=== PATIENT | female | born 1975 | race Caucasian/White ===

== ENCOUNTER 2016-08-01 06:54 | Emergency (ER) | payer OTHER ==
[2016-08-01] MEDS ORDERED: MAG HYDROX/AL HYDROX/SIMETH 30 ML UDC PO STA ×2 (07:32→12:27)
[2016-08-01] MEDS ORDERED: MAG HYDROX/AL HYDROX/SIMETH 30 ML UDC ONE ×2 (07:35→12:28)
[2016-08-01] MEDS ORDERED: KETOROLAC 60 MG/2 ML VIAL IVP STA (07:45)
[2016-08-01] MEDS ORDERED: KETOROLAC 30 MG/ML VIAL ONE (07:55)
[2016-08-01] MEDS ORDERED: HYDROmorphone 1 MG/ML SYRINGE ONE ×3 (08:43→13:58)
[2016-08-01] MEDS ORDERED: HYDROmorphone 1 MG/ML SYRINGE IVP STA ×3 (08:49→13:58)
[2016-08-01] MEDS ORDERED: ONDANSETRON 4 MG/2 ML VIAL IVP STA (08:49)
[2016-08-01] MEDS ORDERED: ONDANSETRON 4 MG/2 ML VIAL ONE (09:01)
[2016-08-01] MEDS ORDERED: IOPAMIDOL-300 100 ML VIAL IVP ONE (11:19)
[2016-08-01] MEDS ORDERED: LIDOCAINE VISCOUS 2% 15 ML UDC MM STA (12:27)
[2016-08-01] MEDS ORDERED: LIDOCAINE VISCOUS 2% 15 ML UDC MM ONE (12:28)
[2016-08-01] MEDS ORDERED: PANTOPRAZOLE 40 MG VIAL IVP STA (13:19)
[2016-08-01] MEDS ORDERED: PANTOPRAZOLE 40 MG VIAL ONE (13:45)
== END 2016-08-01 14:54 | disposition home or self-care (01) ==
DX: R10.13 Epigastric pain (principal); K31.89 Other diseases of stomach and duodenum; R10.11 Right upper quadrant pain; N20.0 Calculus of kidney
CPT/HCPCS: 36415; 71020; 74177; 76705; 80053; 83690; 84484; 85025; 87339; 93005; 93010; 96374; 96375; 96376; 99284; 99285; A9270; J1170; Q9967

== ENCOUNTER 2017-02-06 17:35 | Emergency (ER) | payer OTHER ==
[2017-02-06] MEDS ORDERED: HYDROmorphone 1 MG/ML SYRINGE IVP STA ×3 (17:39→20:13)
[2017-02-06] MEDS ORDERED: SODIUM CHLORIDE 0.9% 1,000 ML IV ONE (17:39)
[2017-02-06] MEDS ORDERED: ONDANSETRON 4 MG/2 ML VIAL IVP STA (17:39)
--- NOTE | 2017-02-06 17:52 | ED Physician Documentation ---
PD HPI ABD PAIN - Stated complaint Stated Complaint: ABD PAIN/VOMITING/FEVER - Chief complaint Chief Complaint: Abd Pain - History obtained from History obtained from: Patient - History of Present Illness Timing - onset: Last night Timing - duration: Days (1) Timing - details: Gradual onset Pain level max: 8 Pain level now: 8 Quality: Aching, Pain Location: RUQ Radiation: Other (non-radiating) Improved by: Other (nothing) Worsened by: Eating, Moving Associated symptoms: Fever (101), Nausea, Vomiting. No: Hematemesis, Diarrhea, Constipation, Melena, Hematochezia, Dysuria, Chest pain Recently seen: Not recently seen - Additional information Additional information: Patient is a 41-year-old female who presents to the emergency department with epigastric/right upper quadrant abdominal pain worsening throughout the day. Temperature of 101.5 at home. Vomiting. History of gallbladder issues in the past. Review of Systems Ten Systems: 10 systems reviewed and negative Constitutional: denies: Chills Nose: denies: Rhinorrhea / runny nose, Congestion Throat: denies: Sore throat Cardiac: denies: Chest pain / pressure Respiratory: denies: Cough GI: denies: Diarrhea, Hematemesis, Bloody / black stool : denies: Dysuria, Frequency, Hesitancy, Now EGA Skin: denies: Rash Musculoskeletal: denies: Neck pain, Back pain Neurologic: denies: Headache PD PAST MEDICAL HISTORY - Past Medical History Cardiovascular: None Respiratory: None Endocrine/Autoimmune: None GI: Cholelithiasis : None HEENT: None Psych: Anxiety Musculoskeletal: None Derm: None - Past Surgical History Past Surgical History: Yes 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, Other - Present Medications Home Medications: Ambulatory Orders Medication Instructions Recorded Confirmed Naproxen Sodium [Aleve] 220 mg PO Q12H PRN 03/16/15 04/02/16 Hydrocodone/Acetaminophen [Vicodin 1 tab ORAL Q4H PRN 04/02/16 04/02/16 5-300 mg Tablet] HYDROcod/ACETAM 5/325 [[place] 5/325] 1 - 2 ea PO Q6H PRN #15 tablet 08/01/16 Sucralfate 1 gm PO ACHS #30 tablet 08/01/16 Diclofenac Epolamine [Flector] 1 each TD Q12H PRN #30 adh..patch 02/06/17 Famotidine [Pepcid] 20 mg PO BID #60 tablet 02/06/17 Hydrocodone/Acetaminophen 1 - 2 each PO Q6H PRN #20 tablet 02/06/17 [Hydrocodon-Acetaminophen 5-325] Ondansetron Odt [Zofran] 4 mg TL Q6H PRN #10 tablet 02/06/17 Sucralfate [Carafate] 1 gm PO ACHS #60 tablet 02/06/17 - Allergies Allergies/Adverse Reactions: Allergies Allergy/AdvReac Type Severity Reaction Status Date / Time coconut oil Allergy Severe Anaphylaxis Verified 02/06/17 17:46 Penicillins Allergy Severe ANAPHYLAXIS Verified 02/06/17 17:46 tramadol Allergy DIARRHEA Verified 02/06/17 17:46 - Social History Does the pt smoke?: No Smoking Status: Never smoker Does the pt drink ETOH?: Yes Does the pt have substance abuse?: No - Immunizations Immunizations are current?: Yes - POLST Patient has POLST: No PD ED PE NORMAL - Vitals Vital signs reviewed: Yes - General General: Alert and oriented X 3, Other (Appears very uncomfortable. Patient is in a dark room) - HEENT HEENT: PERRL, Moist mucous membranes, Pharynx benign - Neck Neck: Supple, no meningeal sign - Cardiac Cardiac: RRR, Strong equal pulses - Respiratory Respiratory: No respiratory distress, Clear bilaterally - Abdomen Abdomen: Normal bowel sounds, Soft, Non distended, Other (Tender palpation epigastric and right upper quadrant. Positive Rene's.) - Back Back: No CVA TTP, No spinal TTP - Derm Derm: Warm and dry, No rash - Neuro Neuro: Alert and oriented X 3 - Psych Psych: Normal mood, Normal affect Results - Vitals Vitals: Vital Signs - 24 hr 02/06/17 02/06/17 02/06/17 17:42 19:35 23:27 Temperature 37.1 C 36.9 C Heart Rate 84 74 67 Respiratory 16 20 18 Rate Blood Pressure 141/104 H 129/71 129/80 O2 Saturation 98 95 97 Oxygen O2 Source Room air - Labs Labs: Laboratory Tests 02/06/17 02/06/17 02/06/17 18:06 18:06 19:06 WBC 6.3 RBC 4.85 Hgb 14.8 Hct 43.0 MCV 88.6 MCH 30.5 MCHC 34.4 RDW 13.0 Plt Count 218 MPV 8.1 Neut # 3.7 Lymph # 1.9 [place] # 0.5 Eos # 0.2 Baso # 0.0 Absolute Nucleated RBC 0.00 Nucleated RBCs 0.0 Sodium 134 L Potassium 3.9 Chloride 106 Carbon Dioxide 21 Anion Gap 7.0 BUN 12 Creatinine 0.5 Estimated GFR (MDRD) 135 Glucose 101 H Calcium 9.2 Total Bilirubin 0.5 AST 19 ALT 15 Alkaline Phosphatase 60 Total Protein 7.5 Albumin 4.3 Globulin 3.2 Albumin/Globulin Ratio 1.3 Lipase 18 L Urine Color YELLOW Urine Clarity CLEAR Urine pH 6.0 Ur Specific [place] 1.020 Urine Protein NEGATIVE Urine Glucose (UA) NEGATIVE Urine Ketones NEGATIVE Urine Occult Blood SMALL H Urine Nitrite NEGATIVE Urine Bilirubin NEGATIVE Urine Urobilinogen 0.2 (NORMAL) Ur Leukocyte Esterase NEGATIVE Urine RBC 0-5 Urine WBC 0-3 Ur Squamous Epith Cells FEW Squamous Urine Bacteria None Seen Ur Microscopic Review INDICATED Urine Culture Comments NOT INDICATED Urine HCG, Qual NEGATIVE - Rads (name of study) Right upper quadrant ultrasound Radiology: Prelim report reviewed, EMP read contemporaneously, See rad report ( Small amount of questionable pericholecystic fluid. No gallstones or gallbladder wall thickening. Patient did experience right upper quadrant pain with imaging. Without gallbladder wall thickening and gallstones, these imaging findings are nonspecific. 2. Probable fatty liver. 1.3 x 0.9 x 0.6 cm echogenic region in the right liver probably represents a focal area of fat or hemangioma. This could be confirmed with multiphase CT or MRI on a nonemergent basis. 3. No hydronephrosis. 4 mm nonobstructing inferior right renal stone. 4. Normal common bile duct. No acute pancreatic abnormality. ) CT abdomen and pelvis Radiology: Prelim report reviewed, EMP read contemporaneously, See rad report ( No acute solid or hollow viscus organ abnormalities account for the patient's presentation. No evidence of bowel obstruction or appendicitis. 2. There is right nephrolithiasis. No evidence of distal obstructing stone or hydronephrosis. ) PD MEDICAL DECISION MAKING - ED course Complexity details: reviewed results, re-evaluated patient, considered differential, d/w patient, d/w sr solutions consultant ED course: Patient is a 41-year-old female who presents to the emergency department with epigastric/right upper quadrant pain and vomiting today. Pain and nausea controlled in the emergency department. Pain did improve with a GI cocktail as well. She has been on Naprosyn for ongoing orthopedic issues, most recently right shoulder pain. Possible this represents gastritis versus an ulcer. Does have trace pericholecystic fluid possibly on ultrasound, therefore surgery was consulted, Dr. Jung evaluated the patient and recommends outpatient HIDA scan and EGD. We will have her stop the oral NSAIDs, change her to a diclofenac patch. We will also prescribe Carafate and Pepcid in addition to her typical Prilosec. Will prescribe pain and nausea medications for home as well. She will return if she worsens or fails to improve as expected. We will have her follow-up with her PCP for further care. Patient counseled regarding signs and symptoms for which I believe and urgent re-evaluation would be necessary. Patient with good understanding of and agreement to plan and is comfortable going home at this time This document was made in part using voice recognition software. While efforts are made to proofread this document, sound alike and grammatical errors may occur. Pain well controlled and tolerating p.o. well in the emergency department Departure - Departure Disposition: 01 Home, Self Care Clinical Impression: Abdominal pain Qualifiers: Abdominal location: epigastric Qualified Code(s): R10.13 - Epigastric pain Condition: Good Instructions: ED Abdominal Pain Unkn Cause, ED PUD Vs Gastritis Follow-Up: Elana Cazares DO [Primary Care Provider] - Within 1 week Prescriptions: Sucralfate [Carafate] 1 gm PO ACHS #60 tablet Diclofenac Epolamine [Flector] 1 each TD Q12H PRN #30 adh..patch PRN Reason: shoulder pain Hydrocodone/Acetaminophen [Hydrocodon-Acetaminophen 5-325] 1 - 2 each PO Q6H PRN #20 tablet PRN Reason: pain Famotidine [Pepcid] 20 mg PO BID #60 tablet Ondansetron Odt [Zofran] 4 mg TL Q6H PRN #10 tablet PRN Reason: Nausea / Vomiting Comments: Stop the Aleve at home. Return if you worsen. Apply the Flector patch to the most painful area of your shoulder. You need to have a HIDA scan and endoscopy scheduled. Dr. Cazares can refer you for these. Do not drink alcohol or drive while on narcotic pain medicine. Note that many narcotic pain relievers also contain tylenol/acetaminophen. Please ensure that your total dose of acetaminophen from all sources does not exceed 3 grams (3000mg) per day. You may constipated on this medication, take a stool softener such as "Colace" twice a day while you are on it. Also recommend a hani-qwi-yaqrvrz laxative such as senna or MiraLAX any day that you do not have a bowel movement. If you received narcotic pain medication in the emergency department, do not drive or operate machinery for the next 24 hours. Discharge Date/Time: 02/06/17 23:50
[2017-02-06] MEDS ORDERED: HYDROmorphone 1 MG/ML SYRINGE ONE ×3 (17:53→20:28)
[2017-02-06] MEDS ORDERED: ONDANSETRON 4 MG/2 ML VIAL ONE (17:53)
[2017-02-06] MEDS ORDERED: PROMETHAZINE INJ 25 MG in SODIUM CHLORIDE 0.9% 50 ML IV STA (18:14)
[2017-02-06 18:16] LABS: BASOPHILS % (AUTO) 0.6 %; EOSINOPHILS # (AUTO) 0.2 10^3/uL (0.0-0.7); EOSINOPHILS % (AUTO) 2.6 %; HGB - HEMOGLOBIN 14.8 g/dL (12.0-16.0); LYMPHOCYTES # (AUTO) 1.9 10^3/uL (1.5-3.5); LYMPHOCYTES % (AUTO) 30.7 %; MEAN CORPUSCULAR HEMOGLOBIN 30.5 pg (27.0-31.0); MEAN CORPUSCULAR HGB CONC 34.4 g/dL (32.0-36.0); MEAN CORPUSCULAR VOLUME 88.6 fL (81.0-99.0); MEAN PLATELET VOLUME 8.1 fL (7.9-10.8); MONOCYTES # (AUTO) 0.5 10^3/uL (0.0-1.0); MONOCYTES % (AUTO) 7.7 %; NEUTROPHILS # (AUTO) 3.7 10^3/uL (1.5-6.6); NEUTROPHILS % (AUTO) 58.4 %; RED BLOOD COUNT 4.85 10^6/uL (4.20-5.40); UNCORRECTED WHITE BLOOD COUNT 6.3 x10^3/uL; WHITE BLOOD COUNT 6.3 x10^3/uL (4.8-10.8)
[2017-02-06] MEDS ORDERED: PROMETHAZINE 25 MG/1 ML VIAL ONE (18:19)
[2017-02-06 18:27] LABS: ALBUMIN/GLOBULIN RATIO 1.3 (1.0-2.2); BILIRUBIN,TOTAL 0.5 mg/dL (0.2-1.0); CALCIUM 9.2 mg/dL (8.5-10.3); CREATININE 0.5 mg/dL (0.4-1.0); POTASSIUM 3.9 mmol/L (3.5-5.0); TOTAL PROTEIN 7.5 g/dL (6.7-8.2)
[2017-02-06 19:13] LABS: BILIRUBIN,URINE NEGATIVE (NEGATIVE)
[2017-02-06 19:17] LABS: UA w/ MICROSCOPIC CHARGE YES
[2017-02-06 19:23] LABS: UR CULTURE IF IND NOT INDICATED; WBC,URINE 0-3 /HPF (0-5)
[2017-02-06 19:24] LABS: HCG UR QUAL NEGATIVE
--- NOTE | 2017-02-06 19:51 | Ultrasound Preliminary Report ---
Exam: US Abdomen Limited IMPRESSION: 1. Small amount to questionable pericholecystic fluid. No gallstones or gallbladder wall thickening. Patient did experience right upper quadrant pain with imaging. Without gallbladder wall thickening an d gallstones, these imaging findings are nonspecific. 2. Probable fatty liver. 1.3 x 0.9 x 0.6 cm echogenic region in the right liver probably represents a focal area of fat or hemangioma. This could be confirmed with multiphase CT or MRI on a nonemergent basis to 3. Nodular nephrosis. 4 mm nonobstructing right renal stone. 4. Normal common bile duct. No acute pancreatic abnormality. [facility] SITE ID: [id number]
[2017-02-06] MEDS ORDERED: SUCRALFATE 1 GM/10 ML UDC PO STA (20:51)
[2017-02-06] MEDS ORDERED: PHENobarb/HYOSCY/ATROPINE/SCOP 5 ML SYRINGE PO STA (20:51)
[2017-02-06] MEDS ORDERED: MAG HYDROX/AL HYDROX/SIMETH 30 ML UDC PO STA (20:51)
[2017-02-06] MEDS ORDERED: IOPAMIDOL-300 100 ML VIAL IVP ONE (20:55)
[2017-02-06] MEDS ORDERED: PHENobarb/HYOSCY/ATROPINE/SCOP 5 ML SYRINGE PO ONE (21:01)
[2017-02-06] MEDS ORDERED: MAG HYDROX/AL HYDROX/SIMETH 30 ML UDC ONE (21:02)
[2017-02-06] MEDS ORDERED: SUCRALFATE 1 GM/10 ML UDC ONE (21:02)
--- NOTE | 2017-02-06 21:05 | Ultrasound Report ---
EXAM: ABDOMEN ULTRASOUND LIMITED, RUQ EXAM DATE: 02/06/2017 06:54 PM. CLINICAL HISTORY: Right upper quadrant abdominal pain. COMPARISON: None. TECHNIQUE: Real-time scanning was performed with static images obtained. FINDINGS: Liver: Mildly echogenic liver parenchyma. In the right liver, there is an oblong echogenic focus kirsten uring 1.3 x 0.9 x 0.6 cm. No vascular component is noted. No intrahepatic bile duct dilation. 16.9 cm . Main portal vein flow: Hepatopetal. Gallbladder: Small amounts of pericholecystic fluid. No definite gallbladder wall thickening. Per rep ort, the patient had a positive sonographic Rene sign. Biliary System: CBD measures 4 mm. No intrahepatic or extrahepatic ductal dilatation. Other: Pancreas: Echogenic parenchyma. No mass, atrophy or calcifications. Right kidney measures 12.1 cm. No hydronephrosis. 4 mm shadowing echogenic focus in the inferior right kidney. IMPRESSION: 1. Small amount of questionable pericholecystic fluid. No gallstones or gallbladder wall thickening. Patient did experience right upper quadrant pain with imaging. Without gallbladder wall thickening an d gallstones, these imaging findings are nonspecific. 2. Probable fatty liver. 1.3 x 0.9 x 0.6 cm echogenic region in the right liver probably represents a focal area of fat or hemangioma. This could be confirmed with multiphase CT or MRI on a nonemergent basis. 3. No hydronephrosis. 4 mm nonobstructing inferior right renal stone. 4. Normal common bile duct. No acute pancreatic abnormality. [facility] Referring Provider Line: [phone] SITE ID: [id number]
--- NOTE | 2017-02-06 21:28 | CT Preliminary Report ---
Exam: CT Abdomen/Pelvis W/ IMPRESSION: 1. No acute solid or hollow viscus organ abnormalities account for the patient's presentation. No akshat dence of bowel obstruction or appendicitis. 2. There is right nephrolithiasis. No evidence of distal obstructing stone or hydronephrosis. [facility] SITE ID: [id number]
--- NOTE | 2017-02-06 21:30 | CT Report ---
EXAM: CT ABDOMEN AND PELVIS EXAM DATE: 02/06/2017 08:56 PM. CLINICAL HISTORY: Right sided abdominal pain COMPARISONS: 08/01/2016. TECHNIQUE: Routine helical CT imaging was performed through the abdomen and pelvis. IV contrast: 100 cc Isovue-300. Enteric contrast: No. Reconstructions: Coronal and sagittal. In accordance with CT protocol optimization, one or more of the following dose reduction techniques w ere utilized for this exam: automated exposure control, adjustment of mA and/or KV based on patient s ize, or use of iterative reconstructive technique. FINDINGS: Lung Bases: Unremarkable. Liver: Normal. No masses. Gallbladder/Bile Ducts: Unremarkable. Spleen: Normal. Pancreas: Normal. Adrenal Glands: Normal. Kidneys: There are small nonobstructing stones within the inferior right kidney. No evidence of dista l obstructing stone or hydronephrosis. Peritoneal Cavity/Bowel: No dilated or thick-walled bowel is seen. No intraperitoneal free air or karyn e fluid. No enlarged mesenteric or retroperitoneal lymph nodes. The appendix is well visualized and n ormal. Pelvic Organs: The uterus is surgically absent. There is a small functional cyst within the right adn exa. Urinary bladder is normal. Vasculature: No aneurysms or other significant abnormality. Bones: No significant abnormality. Other: None. IMPRESSION: 1. No acute solid or hollow viscus organ abnormalities account for the patient's presentation. No akshat dence of bowel obstruction or appendicitis. 2. There is right nephrolithiasis. No evidence of distal obstructing stone or hydronephrosis. [facility] Referring Provider Line: [phone] SITE ID: [id number]
[2017-02-06] MEDS ORDERED: FAMOTIDINE 20 MG/2 ML VIAL IVP STA (21:45)
[2017-02-06] MEDS ORDERED: PANTOPRAZOLE 40 MG VIAL IVP STA (21:45)
[2017-02-06] MEDS ORDERED: FAMOTIDINE 20 MG/2 ML VIAL ONE (21:54)
[2017-02-06] MEDS ORDERED: PANTOPRAZOLE 40 MG VIAL ONE (21:54)
[2017-02-06 23:27] VITALS: BP 129/80
--- NOTE | 2017-02-07 02:56 | CONSULTATION NOTE ---
DATE OF CONSULTATION: 02/06/2017 00:00:00 REQUESTING PROVIDER: Dr. Mahan. REASON FOR REFERRAL: Abdominal pain, nausea and vomiting. HISTORY OF PRESENT ILLNESS: The patient is a 41-year-old female who has been having at least A 3-year history of intermittent right upper quadrant abdominal pain, nausea and vomiting. Since it first occurred, she has been to the emergency room several times for this. She had recent abdominal ultrasound, which showed questionable fluid around the gallbladder. She had a CT scan of the abdomen and pelvis, which showed a small kidney stone on the right side. She had seen a logistics planning manager and a HIDA scan was ordered, but this has not been done. This was ordered a long time ago. She has been having now attacks of right upper quadrant abdominal pain weekly now. Today's episode lasted the longest and was the most intense. This occurred after eating rice. The pain can occur at any time of day, with eating or not. She denies any history of peptic ulcer disease. She has been on Prilosec because it was recommended for the last 3 months now with minimal improvement in her symptoms, as well as taking Mylanta. She does take Aleve 2 tablets almost daily for her shoulder pain. She denies any diarrhea or constipation. She denies any history of jaundice. PAST MEDICAL HISTORY: None. PAST SURGICAL HISTORY: 1. Hysterectomy. 2. Arthroscopic surgery. ALLERGIES TO MEDICATIONS: 1. PENICILLIN. 2. TRAMADOL. CURRENT MEDICATIONS: 1. Aleve. 2. Vicodin. 3. Carafate. 4. Prilosec, dosage unknown. FAMILY HISTORY: Noncontributory. HABITS: The patient socially uses alcohol. Denies any drug or alcohol use. SOCIAL HISTORY: The patient is . ROS: Gastrointestinal: Abdominal pain, nausea. 12 point review of systems obtain with pertinent positives discussed and all others being negative. PHYSICAL EXAMINATION: VITAL SIGNS: Temperature is 37, heart rate 84, blood pressure is 129/71. GENERAL: The patient is lying in bed. She does appear slightly ill. She is awake and able to answer questions. HEENT: Eyes nonicteric. NECK: No lymphadenopathy. HEART: Regular. LUNGS: Clear. BACK: Nontender. ABDOMEN: Soft. Mild right upper quadrant tenderness. No masses. No hernias. EXTREMITIES: No edema or cyanosis. NEUROLOGICAL: The patient appears to be neurologically intact without any deficits. PSYCHOLOGICAL: The patient is coherent, cooperative, and appears to answer questions fully. DIAGNOSTIC DATA: Liver function tests within normal limits. Lipase is 18. White blood count 6.3, hemoglobin 14.8. Ultrasound and CT scan of the abdomen and pelvis, see history of present illness. ASSESSMENT: Right upper quadrant abdominal pain that can be of possibly 2 different etiologies such as biliary tract disease versus peptic ulcer disease. She will need to have a hepatobiliary scan with CCK ejection fraction as well as most likely upper endoscopy throughout the different disease process. I recommended that she talk to her primary care and see about referral to Surgery so these tests may be obtained in a timely fashion in order to diagnose her abdominal pain. PLAN: 1. The patient may be discharged home from surgery standpoint. 2. Recommend the patient be referred to Surgical clinic for further evaluation of her abdominal pain with appropriate testing. 3. Low fat diet. 4. Would recommend sparingly using NSAIDs until further investigation of the stomach can be done. JOB #: [id number] [facility] JOB #:[id number] LEDA
== END 2017-02-06 23:50 | disposition home or self-care (01) ==
LOC: ED 17:35
DX: R10.13 Epigastric pain (principal); M25.511 Pain in right shoulder
CPT/HCPCS: 36415; 74177; 76705; 80053; 81001; 81025; 83690; 85025; 96365; 96375; 96376; 99283; 99285; A9270; J1170; J7040; Q9967; 81003; 87086

== ENCOUNTER 2017-02-10 16:16 | Emergency (ER) | payer OTHER ==
[2017-02-10] MEDS ORDERED: ONDANSETRON 4 MG/2 ML VIAL IVP STA ×2 (16:30→17:52)
[2017-02-10] MEDS ORDERED: HYDROmorphone 1 MG/ML SYRINGE IVP STA ×2 (16:30→17:52)
[2017-02-10] MEDS ORDERED: SODIUM CHLORIDE 0.9% 1,000 ML IV ONE (16:30)
[2017-02-10] MEDS ORDERED: HYDROmorphone 1 MG/ML SYRINGE ONE ×2 (16:38→18:07)
[2017-02-10] MEDS ORDERED: ONDANSETRON 4 MG/2 ML VIAL ONE ×2 (16:38→18:07)
[2017-02-10] MEDS ORDERED: SODIUM CHLORIDE FLUSH 0.9% 10 ML SYRINGE IVP ONE (16:38)
[2017-02-10 16:57] LABS: BASOPHILS # (AUTO) 0.1 10^3/uL (0.0-0.1); BASOPHILS % (AUTO) 0.8 %; EOSINOPHILS # (AUTO) 0.1 10^3/uL (0.0-0.7); EOSINOPHILS % (AUTO) 1.8 %; HCT - HEMATOCRIT 44.8 % (37.0-47.0); HGB - HEMOGLOBIN 15.2 g/dL (12.0-16.0); LYMPHOCYTES # (AUTO) 1.6 10^3/uL (1.5-3.5); LYMPHOCYTES % (AUTO) 23.2 %; MEAN CORPUSCULAR HEMOGLOBIN 30.2 pg (27.0-31.0); MEAN CORPUSCULAR HGB CONC 33.9 g/dL (32.0-36.0); MEAN CORPUSCULAR VOLUME 89.2 fL (81.0-99.0); MEAN PLATELET VOLUME 8.3 fL (7.9-10.8); MONOCYTES # (AUTO) 0.6 10^3/uL (0.0-1.0); MONOCYTES % (AUTO) 8.2 %; NEUTROPHILS # (AUTO) 4.6 10^3/uL (1.5-6.6); RED BLOOD COUNT 5.02 10^6/uL (4.20-5.40); RED CELL DISTRIBUTION WIDTH 13.2 % (12.0-15.0)
[2017-02-10 17:32] LABS: ALBUMIN/GLOBULIN RATIO 1.4 (1.0-2.2); BILIRUBIN,TOTAL 0.2 mg/dL (0.2-1.0); CALCIUM 9.4 mg/dL (8.5-10.3); CREATININE 0.7 mg/dL (0.4-1.0); POTASSIUM 3.7 mmol/L (3.5-5.0); TOTAL PROTEIN 7.3 g/dL (6.7-8.2)
[2017-02-10] MEDS ORDERED: FAMOTIDINE 20 MG/50 ML 50 ML IV ONE ×2 (18:11→18:32)
[2017-02-10] MEDS ORDERED: METOCLOPRAMIDE 10 MG/2 ML VIAL IVP STA (19:08)
--- NOTE | 2017-02-10 19:11 | ED Physician Documentation ---
PD HPI ABD PAIN - Stated complaint Stated Complaint: ABD PX/VOMITING - Chief complaint Chief Complaint: Abd Pain - History obtained from History obtained from: Patient - History of Present Illness Timing - onset: How many days ago (4) Timing - details: Waxing and waning Quality: Pain Location: RUQ Worsened by: Eating Associated symptoms: Fever (low grade to 100.8.), Nausea, Vomiting. No: Diarrhea Recently seen: Emergency Dept (She was seen here four days ago with same. 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 She has had vomiting up to 5 times today. She reports low-grade fever to 100.8. The pain is worse with eating. She was seen here 4 days ago with similar symptoms. Ultrasound of the right upper quadrant and CT scan of the abdomen and pelvis were performed, and failed to reveal a cause for her symptoms. Given her use of Naprosyn for arthritic and orthopedic pain, it was thought her abdominal symptoms were most likely caused by gastritis vs. ulcer disease. She was discharged after consultation with general surgeon, with instructions to schedule outpatient upper endoscopy and HIDA scan. Review of Systems Constitutional: reports: Fever Nose: denies: Congestion Throat: denies: Sore throat Cardiac: denies: Chest pain / pressure Respiratory: denies: Dyspnea, Cough GI: reports: Abdominal Pain, Nausea, Vomiting. denies: Diarrhea, Bloody / black stool : reports: Hysterectomy. 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, Other - Present Medications Home Medications: Ambulatory Orders Medication Instructions Recorded Confirmed Naproxen Sodium [Aleve] 220 mg PO Q12H PRN 03/16/15 04/02/16 Hydrocodone/Acetaminophen [Vicodin 1 tab ORAL Q4H PRN 04/02/16 04/02/16 5-300 mg Tablet] HYDROcod/ACETAM 5/325 [[place] 5/325] 1 - 2 ea PO Q6H PRN #15 tablet 08/01/16 Sucralfate 1 gm PO ACHS #30 tablet 08/01/16 Diclofenac Epolamine [Flector] 1 each TD Q12H PRN #30 adh..patch 02/06/17 Famotidine [Pepcid] 20 mg PO BID #60 tablet 02/06/17 Hydrocodone/Acetaminophen 1 - 2 each PO Q6H PRN #20 tablet 02/06/17 [Hydrocodon-Acetaminophen 5-325] Ondansetron Odt [Zofran] 4 mg TL Q6H PRN #10 tablet 02/06/17 Sucralfate [Carafate] 1 gm PO ACHS #60 tablet 02/06/17 Prochlorperazine [Compazine] 10 mg PO Q6H #14 tablet 02/10/17 oxyCODONE/ACET 5/325 [Percocet 5 1 - 2 tab PO Q4-6H PRN #20 tablet 02/10/17 mg/325 mg] - Allergies Allergies/Adverse Reactions: Allergies Allergy/AdvReac Type Severity Reaction Status Date / Time coconut oil Allergy Severe Anaphylaxis Verified 02/06/17 17:46 Penicillins Allergy Severe ANAPHYLAXIS Verified 02/06/17 17:46 tramadol Allergy DIARRHEA Verified 02/06/17 17:46 - Social History Does the pt smoke?: No Smoking Status: Never smoker Does the pt drink ETOH?: Yes Does the pt have substance abuse?: No - Immunizations Immunizations are current?: Yes - POLST Patient has POLST: No PD ED PE NORMAL - Vitals Vital signs reviewed: Yes (Mildly tachycardic initially.) - General General: Alert and oriented X 3, Well developed/nourished - HEENT HEENT: Atraumatic, Moist mucous membranes, Pharynx benign - Neck Neck: Supple, no meningeal sign, No adenopathy, No JVD - Cardiac Cardiac: No murmur, Other (Initially rapid rate, regular rhythm.) - Respiratory Respiratory: No respiratory distress, Clear bilaterally - Abdomen Abdomen: Normal bowel sounds, Soft, No organomegaly, Other (Tenderness to palpation RUQ, with positive Rene's sign.) - Back Back: No CVA TTP - Derm Derm: No rash - Extremities Extremities: No edema, No calf tenderness / cord - Neuro Neuro: Alert and oriented X 3, No motor deficit, Normal speech Results - Vitals Vitals: Oxygen O2 Source Room air - Labs Labs: Laboratory Tests 02/10/17 02/10/17 16:45 17:05 WBC 7.0 RBC 5.02 Hgb 15.2 Hct 44.8 MCV 89.2 MCH 30.2 MCHC 33.9 RDW 13.2 Plt Count 243 MPV 8.3 Neut # 4.6 Lymph # 1.6 [place] # 0.6 Eos # 0.1 Baso # 0.1 Absolute Nucleated RBC 0.00 Nucleated RBCs 0.0 Sodium 136 Potassium 3.7 Chloride 106 Carbon Dioxide 21 Anion Gap 9.0 BUN 16 Creatinine 0.7 Estimated GFR (MDRD) 92 Glucose 93 Calcium 9.4 Total Bilirubin 0.2 AST 21 ALT 15 Alkaline Phosphatase 62 Total Protein 7.3 Albumin 4.3 Globulin 3.0 Albumin/Globulin Ratio 1.4 Lipase 18 L PD MEDICAL DECISION MAKING - ED course Complexity details: reviewed old records, reviewed results, re-evaluated patient , considered differential, d/w patient, d/w family ED course: The cause of the patient's persistent abdominal pain is uncertain, although peptic ulcer disease versus gastritis is the most likely etiology. Pancreatitis is unlikely given her normal lipase. Her symptoms are not suggestive of biliary colic, and she underwent CT scan and ultrasound 2 days ago which were unremarkable. CBC and chemistry panel today are entirely normal , as is urinalysis. Treatment in the emergency department included administration of normal saline 1 L IV, ondansetron 4 mg IV 2, metoclopramide 10 mg IV, famotidine 20 mg IV, hydromorphone 1 mg IV 2, and lorazepam 1 mg IV. A GI cocktail was administered resulting in further improvement of her symptoms. On reexamination she continues to have mild tenderness to palpation in the epigastric region, without rebound tenderness or guarding. She is being discharged with prescriptions for Compazine and for Percocet. She will pursue further workup as an outpatient, including upper endoscopy and HIDA scan. I discussed with her and her family potentially worrisome signs or symptoms that should prompt reevaluation in the emergency department. Departure - Departure Disposition: 01 Home, Self Care Clinical Impression: Abdominal pain, Vomiting Condition: Stable Instructions: ED Abdominal Pain Unkn Cause, ED Nausea Vomiting Follow-Up: Elana Cazares DO [Primary Care Provider] - Prescriptions: Prochlorperazine [Compazine] 10 mg PO Q6H #14 tablet oxyCODONE/ACET 5/325 [Percocet 5 mg/325 mg] 1 - 2 tab PO Q4-6H PRN #20 tablet PRN Reason: Pain Comments: Continue Pepcid and Carafate as previously prescribed. You can use Compazine as prescribed if needed for nausea. You can use Percocet as prescribed if needed for pain. Follow-up with your primary physician and schedule appointment for EGD and HIDA scan. Return to the emergency department if you develop increasing abdominal pain, persistent vomiting, or otherwise worsening symptoms. Discharge Date/Time: 02/10/17 20:25
[2017-02-10] MEDS ORDERED: METOCLOPRAMIDE 10 MG/2 ML VIAL ONE (19:22)
[2017-02-10] MEDS ORDERED: LORazepam 2 MG/ML SYRINGE IVP STA (19:33)
[2017-02-10] MEDS ORDERED: LORazepam 2 MG/ML SYRINGE ONE (19:41)
[2017-02-10] MEDS ORDERED: MAG HYDROX/AL HYDROX/SIMETH 30 ML UDC PO STA (19:55)
[2017-02-10] MEDS ORDERED: PHENobarb/HYOSCY/ATROPINE/SCOP 5 ML SYRINGE PO STA (19:56)
[2017-02-10] MEDS ORDERED: LIDOCAINE VISCOUS 2% 15 ML UDC MM STA (19:56)
[2017-02-10] MEDS ORDERED: LIDOCAINE VISCOUS 2% 15 ML UDC MM ONE (20:10)
[2017-02-10 20:12] VITALS: BP 114/66
== END 2017-02-10 20:25 | disposition home or self-care (01) ==
LOC: ED 16:16
DX: R10.11 Right upper quadrant pain (principal); R11.2 Nausea with vomiting, unspecified
CPT/HCPCS: 36415; 80053; 83690; 85025; 96374; 96375; 96376; 99283; 99284; J1170; J2060

== ENCOUNTER 2017-02-28 06:09 | Day surgery (SDC) | payer OTHER ==
[2017-02-28] MEDS ORDERED: LACTATED RINGERS 1,000 ML IV ONE ×2 (06:36→08:45)
[2017-02-28] MEDS ORDERED: ceFAZolin 2 GM/50 ML 2 GM/50 ML BAG IV ONE (07:50)
[2017-02-28] MEDS ORDERED: BUPIVACAINE 0.5% PF 30 ML VIAL SUBQ ONE (08:08)
--- NOTE | 2017-02-28 09:23 | OPERATIVE REPORT ---
Operative Report - General Procedure Date: 02/28/17 Planned Procedure: Laparoscopic cholecystectomy, possible open cholecystectomy, possible intra Pre-Op Diagnosis: Biliary colic Procedure Performed: Laparoscopic cholecystectomy Post Op Diagnosis: Same. - Procedure Note Primary Surgeon: Bernardo Blankenship MD Anesthesia Provider: Jose Kay Anesthesia Technique: General ET tube, Local (30 mL of 1/2% Marcaine) IV Fluids (mL): 1,500 Estimated Blood Loss (mL): 5 Complications: None. - Other Other Information/Narrative: OPERATIVE DESCRIPTION/REPORT: After verbal and written informed consent was obtained detailing the risks of infection, bleeding with all of its risks including transfusion, common bile duct injury, and the patient was brought to the operative suite and placed in the supine position on the operating room table. Monitoring devices were applied along with TEDs and pneumatic compressive stockings. Care was taken to avoid pressure points. Prophylactic antibiotics were given. An adequate level of general endotracheal anesthesia was established by [name]. The abdomen was then prepped with ChloraPrep and draped in a sterile fashion. A "time in" then confirmed that the patient was identified with 3 identifiers ( name, birthdate and medical record number), the history and physical was in the chart, the signed consent confirming the procedure was in the chart, the patient was in the correct position, the aforementioned prophylactic measures were in place or given, we had the correct personel and equipment to complete the procedure and that anesthesia, surgery and nursing were given an opportunity to express any concerns. The initial incision was at the umbilicus and dissection to the linea alba was completed using blunt dissection. The linea alba was grasped with a Matheus and incised. In a similar manner the peritoneum was grasped and incised using Metzenbaum scissors. In this location, a 12 mm blunt tipped, balloon tipped port was placed and the balloon was inflated to keep the port in position. The abdominal cavity was insufflated with carbon dioxide to steady-state pressure of 15 mmHg. Three additional 5 mm ports were placed in standard location for laparoscopic cholecystectomy (subxiphoid and 2 right subcostal) under direct vision of the 30 degree laparoscope and without incident. The patient was then placed in reverse Trendelenburg position and was rotated slightly to their left. The gallbladder fundus was grasped with an atraumatic grasper. Multiple adhesions had to be taken down by blunt and sharp dissection along with electrocautery. Eventually, we identified the infundibulum, and this was then grasped and retracted inferior and laterally. Dissection was then begun in the angle of Calot. The cystic duct and (slightly medially and posteriorly) cystic artery were clearly identified. The critical view was obtained. Two clips proximally and one clip distally were used to control both the cystic duct and cystic artery. The clips were carefully placed to avoid occluding the juncture with the common bile duct. Both the cystic duct and then the cystic artery were then transected with laparoscopic lisa. The gallbladder was then removed from its fossa in a retrograde fashion using electrocautery. With the 30 degree 5 mm scope in the subxiphoid position, the gallbladder was placed in an EndoCatch bag to be extracted through the 12 mm port site. I irrigated the right upper quadrant with a liter of warm sterile saline, and the area was aspirated dry. I inspected the gallbladder fossa and there was no bleeding or bile leak. Clips on the cystic duct and cystic artery appeared to be secure. I briefly visually explored the abdomen. There was no other evidence of overt pathology. I injected the port sites at the peritoneal, fascial, and skin levels under direct vision with 0.5% Marcaine. All ports and the EndoCatch containing the gallbladder were removed. Following gallbladder removal, the remaining carbon dioxide was expelled from the abdomen. The fascia at the umbilicus was reapproximated using 2 [id number] 0 Vicryl sutures. The skin at each port site was approximated using a subcuticular 4-0 Monocryl. The surgical count of instruments, needles and sponges was reported as correct twice. Mastisol, Steri-Strips and sterile surgical dressings were applied. The patient was then awakened from anesthesia, extubated, and having tolerated the procedure well, was transported to the recovery room. No complications were encountered. A "time out" confirmed the operation performed , the fluids given, the estimated blood loss and anesthesia, surgery and nursing were given an opportunity to express any concerns. Dragon disclaimer: This document was created in part using voice recognition technology. Because of the inherent limitations of the system ([facility]'s [employer] Dict[employer] user manual states that the licensee understands that speech recognition is a statistical process and that recognition errors are inherent in the process), occasional same sounding word substitutions and grammatical errors do occur and persist despite proofreading. Please read this document for context.
[2017-02-28] MEDS ORDERED: ONDANSETRON 4 MG/2 ML VIAL IVP ONE (10:12)
[2017-02-28] MEDS ORDERED: ROCURONIUM 50 MG/5 ML VIAL IVP ONE (10:12)
[2017-02-28] MEDS ORDERED: SUCCINYLCHOLINE 200 MG/10 ML VIAL IVP ONE (10:12)
[2017-02-28] MEDS ORDERED: ePHEDrine 50 MG/ML AMP IVP ONE (10:12)
[2017-02-28] MEDS ORDERED: HYDROmorphone 1 MG/ML CARPUJECT IVP ONE (10:12)
[2017-02-28] MEDS ORDERED: PROPOFOL 200 MG/20 ML VIAL IVP ONE (10:12)
[2017-02-28] MEDS ORDERED: LIDOCAINE-MPF 2% 5 ML VIAL IM ONE (10:12)
[2017-02-28] MEDS ORDERED: MIDAZOLAM 2 MG/2 ML VIAL IVP ONE (10:12)
[2017-02-28] MEDS ORDERED: KETOROLAC 30 MG/ML VIAL IVP ONE (10:12)
[2017-02-28] MEDS ORDERED: GLYCOPYRROLATE 1 MG/5 ML VIAL IVP ONE (10:12)
[2017-02-28] MEDS ORDERED: DEXAMETHASONE 4 MG/ML VIAL IVP ONE (10:12)
[2017-02-28] MEDS ORDERED: fentaNYL 100 MCG/2 ML VIAL IVP ONE (10:12)
[2017-02-28] MEDS ORDERED: HYDROmorphone 1 MG/ML CARPUJECT ONE (10:19)
[2017-02-28] MEDS ORDERED: HYDROcod/ACETAM 10 MG/325 MG TABLET ONE (10:50)
[2017-02-28 11:53] VITALS: BP 124/77
== END 2017-02-28 06:10 | disposition home or self-care (01) ==
LOC: SDS 06:09
PROVIDERS: ATTEND Surgery
PROC: 0FT44ZZ Resection of Gallbladder, Percutaneous Endoscopic Approach (ICD-10-PCS; principal; 2017-02-28 07:30)
DX: K81.1 Chronic cholecystitis (principal); Z87.891 Personal history of nicotine dependence
CPT/HCPCS: 47562; A9270; J0690; J1170; J7120

== ENCOUNTER 2017-12-13 10:47 | Emergency (ER) | payer OTHER ==
--- NOTE | 2017-12-13 10:59 | ED Physician Documentation ---
PD HPI FEMALE - Stated complaint Stated Complaint: ABD PAIN - Chief complaint Chief Complaint: Abd Pain - History obtained from History obtained from: Patient - History of Present Illness Timing - onset: Enter time (1700), Yesterday Timing - duration: Days (1) Timing - details: Abrupt onset, Still present, Waxing and waning Associated symptoms: Abdominal pain, Pelvic pain. 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 The pain subsided somewhat with use of Aleve and in the early hours of the morning her pain spiked and has stayed high persistently. She is quite uncomfortable and is worried about torsion. She has had similar pain previously and has had bedside ultrasound done by Dr. Durahm and was diagnosed with an ovarian cyst. She has not had her follow up ultrasound. Review of Systems Constitutional: denies: Fever, Chills Eyes: denies: Decreased vision Ears: denies: Ear pain Nose: denies: Congestion Throat: denies: Sore throat Cardiac: denies: Chest pain / pressure, Palpitations Respiratory: denies: Dyspnea, Cough GI: reports: Abdominal Pain, Nausea : reports: Hysterectomy. 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 ADMINISTRATOR: Tubal ligation, Hysterectomy - Present Medications Home Medications: Ambulatory Orders Medication Instructions Recorded Confirmed Sucralfate 1 gm PO ACHS #30 tablet 08/01/16 02/20/17 Famotidine [Pepcid] 20 mg PO BID #60 tablet 02/06/17 02/20/17 Hydrocodone/Acetaminophen 1 - 2 each PO Q6H PRN #20 tablet 02/06/17 02/28/17 [Hydrocodon-Acetaminophen 5-325] Ondansetron Odt [Zofran] 4 mg TL Q6H PRN #10 tablet 02/06/17 02/28/17 Prochlorperazine [Compazine] 10 mg PO Q6H #14 tablet 02/10/17 02/20/17 HYDROcod/ACETAM 5/325 [Mcgrath 5/325] 1 - 2 ea PO Q6H PRN #15 tablet 12/13/17 - Allergies Allergies/Adverse Reactions: Allergies Allergy/AdvReac Type Severity Reaction Status Date / Time coconut oil Allergy Severe Anaphylaxis Verified 12/13/17 10:56 Penicillins Allergy Severe ANAPHYLAXIS Verified 12/13/17 10:56 tramadol Allergy DIARRHEA Verified 12/13/17 10:56 promethazine HCl * AdvReac Dizziness Verified 12/13/17 10:56 [From Phenergan] - Social History Does the pt smoke?: No Smoking Status: Never smoker Does the pt drink ETOH?: Yes Does the pt have substance abuse?: No - Immunizations Immunizations are current?: Yes - POLST Patient has POLST: No PD ED PE NORMAL - Vitals Vital signs reviewed: Yes (tachy and hypertensive ) - General General: Alert and oriented X 3, Well developed/nourished, Other (42-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.) - HEENT HEENT: Atraumatic, PERRL, EOMI - Neck Neck: Supple, no meningeal sign - Cardiac Cardiac: RRR, No murmur - Respiratory Respiratory: No respiratory distress, Clear bilaterally - Abdomen Abdomen: Soft, Other (RLQ tednerness with gaurding is more suprapubic ) - Back Back: No CVA TTP, No spinal TTP - Derm Derm: Normal color, Warm and dry, No rash - Extremities Extremities: No deformity, No edema - Neuro Neuro: Alert and oriented X 3, 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, No motor deficit, No sensory deficit, Normal speech Eye Opening: Spontaneous Motor: Obeys Commands Verbal: Oriented GCS Score: 15 - Psych Psych: Normal mood, Normal affect Results - Vitals Vitals: Vital Signs - 24 hr 12/13/17 12/13/17 12/13/17 10:52 12:25 12:41 Temperature 36.3 C L Heart Rate 104 H 98 88 Respiratory 20 20 20 Rate Blood Pressure 158/120 H 152/107 H 137/94 H O2 Saturation 100 96 96 Oxygen O2 Source Room air - Labs Labs: Laboratory Tests 12/13/17 12/13/17 12/13/17 11:05 11:05 12:06 WBC 4.9 RBC 5.01 Hgb 15.0 Hct 44.6 MCV 89.0 MCH 30.0 MCHC 33.7 RDW 13.6 Plt Count 242 MPV 8.5 Neut # (Auto) 2.8 Lymph # (Auto) 1.6 S[place]y # (Auto) 0.4 Eos # (Auto) 0.1 Baso # (Auto) 0.0 Absolute Nucleated RBC 0.00 Nucleated RBC % 0.0 Sodium 137 Potassium 4.0 Chloride 106 Carbon Dioxide 23 Anion Gap 8.0 BUN 14 Creatinine 0.5 Estimated GFR (MDRD) 135 Glucose 92 Calcium 9.0 Total Bilirubin 1.1 H AST 22 ALT 17 Alkaline Phosphatase 73 Total Protein 7.7 Albumin 4.3 Globulin 3.4 Albumin/Globulin Ratio 1.3 Lipase 22 Urine Color YELLOW Urine Clarity CLEAR Urine pH 7.0 Ur Specific [place] 1.015 Urine Protein NEGATIVE Urine Glucose (UA) NEGATIVE Urine Ketones NEGATIVE Urine Occult Blood TRACE-INTA Urine Nitrite NEGATIVE Urine Bilirubin NEGATIVE Urine Urobilinogen 0.2 (NORMAL) Ur Leukocyte Esterase NEGATIVE Ur Microscopic Review NOT INDICATED Urine Culture Comments NOT INDICATED - Rads (name of study) pelvic u/s Radiology: Prelim report reviewed (Impression: 1. Postoperative changes of hysterectomy. Normal ovaries. 2 arterial and venous blood flow are present to the ovaries bilaterally.), EMP read indepedently, See rad report Procedures - Bedside sono Bedside sono by EMP: With use of bedside ultrasound the right kidney is imaged there is no evidence of hydronephrosis and the kidney is sonographically nontender. PD MEDICAL DECISION MAKING - ED course Complexity details: reviewed old records, reviewed results, re-evaluated patient , considered differential, d/w patient, d/w family ED course: 42-year-old female with acute right lower quadrant abdominal pain is tender on examination and she is especially tender if she goes to move or sit up by herself. She is in significant amount of pain she has some relief with some Toradol and she has a bit of relief with some diludid, but she really appears to be in pain. Workup of the patient's abdomen and pelvis shows a normal pelvic ultrasound and a normal CT scan of the abdomen and pelvis. I have reviewed the images myself the images are high quality and the insides look absolutely normal. The patient has had a tummy tuck and muscle revision done to her abdomen and I suspect she has a chronic abdominal wall strain. She recalls lifting a heavy box at [employer] with her last night did not have specific pain at that time and then awoke later at night with severe pain. I suspect that some of her pain that she has been having in this area since August is related to damage to the muscles. She is administered decadron and we will take her off work 3 days. - Sepsis Event Vital Signs: Vital Signs - 24 hr 12/13/17 12/13/17 12/13/17 10:52 12:25 12:41 Temperature 36.3 C L Heart Rate 104 H 98 88 Respiratory 20 20 20 Rate Blood Pressure 158/120 H 152/107 H 137/94 H O2 Saturation 100 96 96 Oxygen O2 Source Room air Departure - Departure Disposition: 01 Home, Self Care Clinical Impression: Strain of abdominal wall Qualifiers: Encounter type: initial encounter Qualified Code(s): S39.011A - Strain of muscle, fascia and tendon of abdomen, initial encounter Instructions: ED Strain Abdominal Muscle Follow-Up: Elana Cazares DO [Primary Care Provider] - Prescriptions: HYDROcod/ACETAM 5/325 [Mcgrath 5/325] 1 - 2 ea PO Q6H PRN #15 tablet PRN Reason: Pain Forms: Activity restrictions
[2017-12-13] MEDS ORDERED: KETOROLAC 60 MG/2 ML VIAL IVP STA (11:08)
[2017-12-13 11:29] LABS: BASOPHILS % (AUTO) 0.8 %; EOSINOPHILS # (AUTO) 0.1 10^3/uL (0.0-0.7); EOSINOPHILS % (AUTO) 2.7 %; LYMPHOCYTES # (AUTO) 1.6 10^3/uL (1.5-3.5); LYMPHOCYTES % (AUTO) 32.3 %; MEAN CORPUSCULAR HGB CONC 33.7 g/dL (32.0-36.0); MEAN PLATELET VOLUME 8.5 fL (7.9-10.8); MONOCYTES # (AUTO) 0.4 10^3/uL (0.0-1.0); MONOCYTES % (AUTO) 7.2 %; NEUTROPHILS # (AUTO) 2.8 10^3/uL (1.5-6.6); PLT - PLATELET COUNT 242 10^3/uL (130-450); RED BLOOD COUNT 5.01 10^6/uL (4.20-5.40); RED CELL DISTRIBUTION WIDTH 13.6 % (12.0-15.0); WHITE BLOOD COUNT 4.9 x10^3/uL (4.8-10.8)
[2017-12-13 11:44] LABS: ALBUMIN 4.3 g/dL (3.2-5.5); ALBUMIN/GLOBULIN RATIO 1.3 (1.0-2.2); BILIRUBIN,TOTAL 1.1 mg/dL (0.2-1.0); CREATININE 0.5 mg/dL (0.4-1.0); TOTAL PROTEIN 7.7 g/dL (6.7-8.2)
--- NOTE | 2017-12-13 12:00 | Ultrasound Report ---
Procedure Date: 12/13/2017 Accession Number: [id number] / [id number] Procedure: US - Pelvic w/Transvag+Doppler Ltd CPT Code: FULL RESULT: EXAM: Pelvic w/Transvag+Doppler Ltd DATE: 12/13/2017 11:54 AM CLINICAL HISTORY: RLQ pain COMPARISON: CT 02/06/2017 TECHNIQUE: Realtime transabdominal imaging performed to identify the uterus and adnexa and as an overview of other pelvic structures, followed by transvaginal imaging for better assessment of the endometrium and/or adnexa, with static image documentation. Color flow imaging and Doppler spectral analysis was performed to evaluate blood flow to the ovaries given localized pain. FINDINGS: Uterus: Surgically absent. Right Ovary: 3.3 x 2.0 x 1.8 cm, volume 6 cc. Normal echotexture. Right Ovary: Arterial and venous blood flow are present. Adnexa are unremarkable. Left Ovary: 2.7 x 1.8 x 1.2 cm, volume 3 cc. Normal echotexture. Left Ovary: Arterial and venous blood flow are present. Adnexa are unremarkable. Free Fluid: None. Other: None. IMPRESSION: 1. Postoperative changes of hysterectomy. Normal ovaries. 2. Arterial and venous blood flow are present to the ovaries bilaterally. RADIA
[2017-12-13 12:09] LABS: BILIRUBIN,URINE NEGATIVE (NEGATIVE); GLUCOSE, URINE (UA) NEGATIVE (NEGATIVE); KETONES,URINE (UA) NEGATIVE (NEGATIVE); LEUKOCYTE ESTERASE, URINE NEGATIVE (NEGATIVE); NITRITE,URINE NEGATIVE (NEGATIVE); OCCULT BLOOD,URINE TRACE-INTA (NEGATIVE); PROTEIN,URINE NEGATIVE (NEGATIVE); UROBILINOGEN,URINE 0.2 (NORMAL) E.U./dL (NORMAL)
[2017-12-13 12:10] LABS: CLARITY,URINE CLEAR (CLEAR)
[2017-12-13] MEDS ORDERED: ONDANSETRON 4 MG/2 ML VIAL IVP STA (12:15)
[2017-12-13] MEDS ORDERED: HYDROmorphone 1 MG/ML CARPUJECT IVP STA (12:15)
--- NOTE | 2017-12-13 13:16 | CT Report ---
Procedure Date: 12/13/2017 Accession Number: [id number] / [id number] Procedure: CT - Abdomen/Pelvis W/O CPT Code: FULL RESULT: EXAM: CT ABDOMEN AND PELVIS (CT KUB) EXAM DATE: 12/13/2017 12:38 PM. CLINICAL HISTORY: RLQ pain. COMPARISONS: 02/06/2017. TECHNIQUE: Routine axial helical CT imaging was performed through the abdomen and pelvis without IV contrast. Reconstructions: Coronal and sagittal. In accordance with CT protocol optimization, one or more of the following dose reduction techniques were utilized for this exam: automated exposure control, adjustment of mA and/or KV based on patient size, or use of iterative reconstructive technique. FINDINGS: Lung Bases: Unremarkable. Right Kidney/Ureter: 2 nonobstructing stones inferiorly measure 5 mm and 2 mm respectively. No obstructing stone. No hydronephrosis or hydroureter. No perinephric fat stranding. Left Kidney/Ureter: Tiny nonobstructing 2 mm stone inferiorly. No obstructing stone. No hydronephrosis or hydroureter. No perinephric fat stranding. Other Solid Organs: Noncontrast images of the solid organs are grossly unremarkable. Gallbladder/Bile Ducts: Prior cholecystectomy. Peritoneal Cavity: No free fluid, free air or ozzy adenopathy. No bowel obstruction. Normal appendix. Pelvic Organs: No bladder stones or wall thickening. Uterus is absent. No adnexal mass. Vasculature: Unremarkable. Other: L5-S1 disk degeneration. IMPRESSION: Nonobstructing renal stones bilaterally. No obstruction. Normal appendix RADIA
[2017-12-13] MEDS ORDERED: DEXAMETHASONE 10 MG/ML VIAL IVP STA (13:38)
[2017-12-13 14:02] VITALS: BP 134/88
== END 2017-12-13 14:01 | disposition home or self-care (01) ==
LOC: ED 10:47
DX: S39.011A Strain of muscle, fascia and tendon of abdomen, initial encounter (principal); N20.0 Calculus of kidney; Z98.890 Other specified postprocedural states; Z90.710 Acquired absence of both cervix and uterus; X50.0XXA Overexertion from strenuous movement or load, initial encounter; Y92.59 Other trade areas as the place of occurrence of the external cause
CPT/HCPCS: 36415; 74176; 76830; 76856; 80053; 81003; 83690; 85025; 93976; 96374; 96375; 99283; J1170; 81001; 87086

== ENCOUNTER 2018-01-16 15:08 | Outpatient (CLI) | payer OTHER ==
[2018-01-16 15:26] LABS: BILIRUBIN,URINE NEGATIVE (NEGATIVE); GLUCOSE, URINE (UA) NEGATIVE (NEGATIVE); KETONES,URINE (UA) NEGATIVE (NEGATIVE); LEUKOCYTE ESTERASE, URINE NEGATIVE (NEGATIVE); NITRITE,URINE NEGATIVE (NEGATIVE); OCCULT BLOOD,URINE SMALL (NEGATIVE); PROTEIN,URINE NEGATIVE (NEGATIVE); UROBILINOGEN,URINE 0.2 (NORMAL) E.U./dL (NORMAL)
[2018-01-16 15:32] LABS: CLARITY,URINE CLEAR (CLEAR)
[2018-01-16 15:45] LABS: BACTERIA,URINE Few /HPF (None Seen); RBC,URINE 0-5 /HPF (0-5); SQUAMOUS EPITHELIAL CELL,UR RARE Squamous (<= Few)
== END 2018-01-16 15:09 | disposition home or self-care (01) ==
LOC: LAB 15:08
PROVIDERS: ATTEND Obstetrics & Gynecology
DX: Z01.812 Encounter for preprocedural laboratory examination (principal); R10.2 Pelvic and perineal pain
CPT/HCPCS: 81001; 87086

== ENCOUNTER 2018-01-17 06:00 | Day surgery (SDC) | payer OTHER ==
[2018-01-17] MEDS ORDERED: CELECOXIB 100 MG CAPSULE PO ONE (06:29)
[2018-01-17] MEDS ORDERED: ACETAMINOPHEN 1,000 MG/100 ML 100 ML IV ONE ×2 (06:29→08:00)
[2018-01-17] MEDS ORDERED: GABAPENTIN 400 MG CAPSULE ONE (06:30)
[2018-01-17] MEDS ORDERED: LACTATED RINGERS 1,000 ML IV ONE ×3 (06:32→08:25)
[2018-01-17] MEDS ORDERED: LIDOCAINE 1%-EPI 1:100000 30 ML MDV ONE (07:11)
--- NOTE | 2018-01-17 07:14 | ANESTHESIA ---
Pre-Anesthesia VS, & Labs - Diagnosis Right lower quadrant pain - Procedure Diagnostic Laparoscopy. Lysis of adhesions. Right salpingectomy Right oophrectomy Left salpingectomy Vital Signs: Temp Pulse Resp BP Pulse Ox 36.4 C L 16 144/93 H 99 01/17/18 06:32 01/17/18 06:32 01/17/18 06:32 01/17/18 06:32 Height 5 ft 3 in Weight (kg) 77.5 kg Body Mass Index 29.7 - NPO >8 hours - Is Patient ?: No Home Medications and Allergies Home Medications: Ambulatory Orders Medication Instructions Recorded Confirmed Vitamin C/Biotin [[id number] 1 each PO DAILY 01/16/18 01/17/18 Gummies] Allergies/Adverse Reactions: Allergies Allergy/AdvReac Type Severity Reaction Status Date / Time coconut oil Allergy Severe Anaphylaxis Verified 01/16/18 16:06 Penicillins Allergy Severe ANAPHYLAXIS Verified 01/16/18 16:06 tramadol Allergy DIARRHEA Verified 01/16/18 16:06 promethazine HCl * AdvReac Severe Dizziness Verified 01/16/18 16:06 [From Phenergan] Anes History & Medical History - Anesthetic History Anesthesia Complications: reports: No previous complications Family history of Anesthesia Complications: Denies Family history of Malignant Hyperthermia: Denies - Medical History Cardiovascular: reports: None, Other Pulmonary: reports: None Gastrointestinal: reports: None Urinary: reports: None, Kidney stones (history of kidney stones) Neuro: reports: None Musculoskeletal: reports: Osteoarthritis Endocrine/Autoimmune: reports: None Blood Disorders: reports: None Skin: reports: None Smoking Status: Never smoker Psychosocial: reports: No issues indicated - Surgical History General: Cholecystectomy Gynecologic: Tubal ligation, Hysterectomy Orthopedic: Arthroscopic surgery Exam General: Alert, Oriented x3, Cooperative Dental: WNL Mouth Openin Fingerbreadth Neck Mobility: Normal Mallampati classification: III Thyromental Distance: 4-6 cm (2 FB) Respiratory: Lungs clear, Normal breath sounds, No respiratory distress, No accessory muscle use Cardiovascular: Regular rate, Normal S1, Normal S2, No murmurs Mental/Cognitive Status: Alert/Oriented X3, Normal for patient Cognitive Status: Within normal limits Plan Anesthesia Type: General Consent for Procedure(s) Verified and Reviewed: Yes Code Status: Attempt Resuscitation ASA classification: 1-Healthy patient Is this case an emergency?: No
--- NOTE | 2018-01-17 07:21 | PREOP HISTORY & PHYSICAL ---
DATE OF ADMISSION: 01/17/2018 Physician: Jessica Durham DO IDENTIFICATION: This is a 42-year-old G3, P3-0-0-3. HISTORY OF PRESENT ILLNESS: Danielle is a patient of [facility] who had been having right lower quadrant pain. Previous to this, I saw the patient in 2012, who underwent a total vaginal hysterectomy for right lower quadrant pain. The surgery went well, and there were no complications. Pathology revealed focal adenomyosis. Patient had been doing well until December of 2017, when she went to the emergency room for abdominal pain. An ultrasound at that time showed the uterus was surgically absent and the right ovary measuring 3.3 x 2.0 x 1.8 cm, left ovary measuring 2.7 x 1.8 x 1.2 cm. No free fluid. CT of the abdomen and pelvis shows the right kidney and ureter with 2 nonobstructing stones inferiorly measuring 5 and 2 mm. There is no hydronephrosis nor hydroureter. The left kidney shows a nonobstructing 2 mm stone inferiorly. There was a prior cholecystectomy and a normal appendix. No free fluid, free air, or ozzy adenopathy. No bowel obstruction. The diagnosis at the emergency room at that time was strain of the abdominal wall, and Vicodin was given to the patient. I then saw patient on 12/25/2017. She stated that more recently in August 2015, after her hysterectomy, she had abdominoplasty at the [facility] [place]. Patient states that she has pain that correlates to position. When she positions herself at particular ways, her pain worsens. At first the pain feels like ovulation, and now the pain is constant and always bothersome. The pain she feels is deep in her abdomen and not superficial. Sometimes at work she will get lightheaded and will throw up if the pain gets too bad. Heating pads and hot showers do not work. The worst pain is in the right lower quadrant , and it is localized deep to the incision with radiation to her back, specifically to the right sacrum at about S4. She states that this pain does not feel like nerves. She feels better when her hips are flexed onto her chest. A trial of Depo-Provera was started for the patient on that same day. Her pain, however, continues to persist. The pain now is getting worse with respect to frequency and intensity. The pain now wakes her up in the middle of the night. Interestingly enough, she has also noticed a recent onset of urinary frequency. She denies any hematuria or dysuria. She does have some soreness as she describes her left posterior back, essentially in her left renal area. She denies any nausea, vomiting, fevers, chills, diarrhea, or constipation. She denies any vaginal bleeding. I discussed with the patient her options. We can continue to do systemic hormones which would help with pain if it is truly gynecological in etiology. Her other option would be to perform surgery for possible lysis of adhesions. Patient has verbalized her desire to have an elective right salpingo- oophorectomy given that her pain is mainly in the right lower quadrant. I discussed with the patient in detail the risks, benefits, alternatives, indications, expectations of a laparoscopic right salpingo-oophorectomy with a left salpingectomy. Also, potentially, I would be doing a lysis of adhesions and either excising or ablating endometriotic implants I would see. Finally, should there be any signs of herniation, I would call a general surgeon for repair of any herniations. With respect to damage to surrounding organs, the patient understands that this may be an inadvertent laceration cauterization or ligation of the adjacent intestines or bladder or ureters. Also, she potentially may have some rebound menopausal symptoms after performing unilateral oophorectomy. She should not have long-term menopausal symptoms, as her healthy left ovary should be making estrogen for her. After the patient's questions were answered to her satisfaction, she verbalized her desire to proceed with surgery. Consent forms have been signed. PAST MEDICAL HISTORY 1. Anxiety. 2. Osteoarthritis. PAST SURGICAL HISTORY 1. Arthroscopic surgery. 2. Laparoscopic cholecystectomy. 3. Tubal sterilization. 4. Transvaginal hysterectomy. 5. Abdominoplasty. MEDICATIONS 1. P.r.n. Vicodin. 2. Depo-Provera on 12/25/2017. ALLERGIES 1. PENICILLIN WITH WHICH SHE HAS ANAPHYLAXIS. 2. TRAMADOL WITH WHICH SHE HAS DIARRHEA. 3. PHENERGAN WITH WHICH SHE HAS DIZZINESS. 4. COCONUT OIL GIVES HER ANAPHYLAXIS. SOCIAL HISTORY: She denies any tobacco or illicit drug use. She does drink alcohol on a social basis. Patient is to Kaleb and has 3 children, Jaimes, Papi, and Elma. PAST SURGICAL HISTORY: Three term spontaneous vaginal deliveries with the largest baby weighing 7 pounds 13 ounces. PAST GYNECOLOGICAL HISTORY: History of LEEP as well as bilateral tubal sterilization. Status post 05/16/2012 total vaginal hysterectomy for menorrhagia and dysmenorrhea. Pathology did reveal adenomyosis. FAMILY HISTORY: Sister with cervical carcinoma. REVIEW OF SYSTEMS: Negative unless otherwise stated. OBJECTIVE VITAL SIGNS: Weight is 173 pounds, blood pressure 126/72. GENERAL: Patient is a well-developed, well-nourished, female, in no apparent distress. She is alert and oriented x3. HEENT: Within normal limits. CARDIOVASCULAR: Rate is regular. No murmurs or rubs. PULMONARY: Lungs are clear to auscultation bilaterally. ABDOMEN: Soft, nontender. There is no flank tenderness. No costovertebral angle tenderness. She does have well-healed laparoscopic port site incisions as well an abdominoplasty incision. DIAGNOSTIC DATA: The 05/16/2012 pathology for the uterus revealed a 193 gram 7.9 x 7.1 x 5.2 cm uterus. The cervix is with no pathological alterations. Endometrium revealed early proliferative endometrium without atypia or significant inflammation. Myometrium showed focal adenomyosis. A 2.6 cm thick trabeculated myometrium has extensive adenomyosis. ASSESSMENT 1. A 42-year-old G3, P-3-0-0-3. 2. Right lower quadrant pain. PLAN 1. We will proceed to a scheduled laparoscopic right salpingo-oophorectomy and left salpingectomy. We will also perform adhesiolysis if necessary and ablation /excision of endometrial implants as indicated. We will call General Surgery for consultation if there are any signs of inguinal or Spigelian hernias. 2. Patient is to get urinalysis today to rule out urinary tract infection, and we will treat as appropriate. 3. Patient is to take ibuprofen for pain after surgery, and she has been given a prescription for Vicodin #30 tablets for any breakthrough pain she may experience. 4. Patient is to see me in 2 weeks for routine postop visit. 5. Anticipate giving patient copies of intraoperative pictures. 6. Anticipate giving patient tranexamic acid as well as Celebrex in the preoperative holding area in order to minimize her postoperative pain. TD: 01/16/2018 16:52 [email or web address]
[2018-01-17] MEDS ORDERED: NEOSTIGMINE 1 MG/1 ML 10 ML MDV IVP ONE (08:00)
[2018-01-17] MEDS ORDERED: LIDOCAINE-MPF 2% 5 ML VIAL IM ONE (08:00)
[2018-01-17] MEDS ORDERED: GLYCOPYRROLATE 1 MG/5 ML VIAL IVP ONE (08:00)
[2018-01-17] MEDS ORDERED: MIDAZOLAM 2 MG/2 ML VIAL IVP ONE (08:00)
[2018-01-17] MEDS ORDERED: SUCCINYLCHOLINE 200 MG/10 ML VIAL IVP ONE (08:00)
[2018-01-17] MEDS ORDERED: ROCURONIUM 50 MG/5 ML VIAL IVP ONE (08:00)
[2018-01-17] MEDS ORDERED: ONDANSETRON 4 MG/2 ML VIAL IVP ONE (08:00)
[2018-01-17] MEDS ORDERED: PROPOFOL 200 MG/20 ML VIAL IVP ONE (08:00)
[2018-01-17] MEDS ORDERED: fentaNYL 250 MCG/5 ML VIAL IVP ONE (08:00)
[2018-01-17] MEDS ORDERED: DEXAMETHASONE 4 MG/ML VIAL IVP ONE (08:00)
[2018-01-17] MEDS ORDERED: ePHEDrine 50 MG/ML VIAL IVP ONE (08:00)
[2018-01-17] MEDS ORDERED: LIDOCAINE MPF 1%-EPI 1:200000 30 ML VIAL SUBQ ONE ×2 (08:20)
[2018-01-17] MEDS: HYDROmorphone 1 MG/ML CARPUJECT ONE ×2 (09:07→09:15)
--- NOTE | 2018-01-17 09:07 | POST OP PROGRESS NOTE ---
Subjective - General Procedure Date: 02/28/17 Post Op Days: 323 - Other Other Information/Narrative: Date of Operation: 01/17/2018 Surgeon: Jessica Durham DO FACOG Mobile Sales Technician: None Cmo: Trae Wallace CRNA Anesthesia: GET Pre-Op Dx: 1. 42 yo 2. Chronic pelvic pain Post-op Dx: 1. 42 yo 2. Chronic pelvic pain Procedures: 1. Laparoscopic right salpingo-oophorectomy 2. Lysis of adhesions on left side wall Findings: 1. Surgically absent uterus, left fallopian tube and portions of right fallopian tube. 2. Normal ovaries and remaining right tube. 3. No signs of endometriosis nor abdominal wall hernias. 4. Normal appendix and liver edge. Specimens: 1. Right adnexa Drains: None EBL: None Complications: None OP note dictated: [id number]
[2018-01-17] MEDS ORDERED: HYDROcod/ACETAM 5/325 MG TABLET ONE (09:16)
[2018-01-17 09:42] VITALS: BP 121/70
--- NOTE | 2018-01-17 11:31 | OPERATIVE REPORT ---
DATE OF OPERATION: 01/17/2018 SURGEON: Jessica Durham DO, FACOG. ENGINEERING SECRETARY: None. ANESTHESIOLOGIST: Trae Wallace CRNA. ANESTHESIA: General endotracheal tube. PREOPERATIVE DIAGNOSES 1. 42-year-old G3, P-3-0-0-3. 2. Chronic pelvic pain. POSTOPERATIVE DIAGNOSES 1. 42-year-old G3, P3-0-0-3. 2. Chronic pelvic pain. PROCEDURES 1. Laparoscopic right salpingo-oophorectomy. 2. Lysis of adhesions on left sidewall. FINDINGS 1. Surgically absent uterus, left fallopian tube and portions of right fallopian tube. 2. Normal ovaries and remaining right tube. 3. No signs of endometriosis nor abdominal wall hernias. 4. Normal appendix and liver edge. SPECIMENS: Right adnexa. DRAINS: None. ESTIMATED BLOOD LOSS: None. COMPLICATIONS: None. HISTORY OF PRESENT ILLNESS: This is a patient of [facility], who has history of chronic pelvic pain. Earlier this year, she started having pain in the right lower quadrant. Workup was essentially unremarkable, and a trial of Depo-Provera was not helpful. Danielle was known; however, to have adenomyosis after her previous hysterectomy. At the time of surgery, there were no signs of endometriosis grossly in the abdomen or pelvis. Due to unsatisfactory conservative methods, patient at this point in time elected to proceed to surgical methods to relieve her pain. Discussed with patient the risks, benefits, alternatives, indications, expectations of a laparoscopic right salpingo-oophorectomy, left salpingectomy, and possible lysis of adhesions, and removal or ablation of endometriotic implants. Included in our discussion were the risks of hemorrhage, infection and damage to surrounding organs, which may include, but are not limited to an inadvertent laceration, cauterization or ligation of adjacent ureters, intestines and bladder. Furthermore, with this procedure, there may be a benign findings and no obvious cause, and therefore, treatment of her pain. After patient's questions were answered to her satisfaction, she verbalized her desire to proceed with surgery. Consent forms were signed. OPERATION IN DETAIL: Patient was identified and consented, taken to the operating room where IV access was already in place. She was then given sequential compression devices, which were placed on the lower extremities and turned on. Patient was then given satisfactory general endotracheal tube anesthesia as per Chuck Wallace. Patient was then prepped and draped in normal sterile fashion in the supine position. Her left arm was tucked. A timeout was performed, which correctly identified the patient side for the procedures, and the procedures themselves. Three laparoscopic port sites were first identified the first one was in Ryan' s point, given her previous hysterectomy, cholecystectomy, and abdominoplasty. I was concerned that there may be significant scarring, which may lead to an inadvertent laceration to the intestines due to potential adhesions. Therefore , Ryan's point was identified in order to access the abdomen. 1% lidocaine with epinephrine was used to inject Ryan's point. A 5 mm incision was performed. Direct entrance to the abdomen was made using the Visiport. CO2 gas was then used to insufflate the abdomen. Obtaining a satisfactory pneumoperitoneum. Two other ports were then placed in the abdomen. One in the right lower quadrant, approximately two fingerbreadths superior, and then medial to the anterior superior iliac spine. This was a 5 mm port. A third port was placed in the left lower quadrant in similar location, two fingerbreadths superior and then medial to the anterior superior iliac spine on the left aspect. This time, a 12 mm port was placed in the left lower quadrant. Again, 1% lidocaine with epinephrine was used to inject the port sites. This anesthetic was used at the termination of this case for control of postoperative pain. A total of 30 mL were used for the entire case. Inspection of the pelvis revealed a surgically absent uterus, left fallopian tube and portions of the right fallopian tube. There was some small amount of adhesions between the remaining left broad ligament and left pelvic sidewall. There were no other significant adhesions found within the pelvis or abdomen. Close inspection of the anterior abdominal wall did not reveal any obvious herniation including umbilical, spigelian and inguinal. Although I did not run the bowel, there were grossly no signs of diverticulitis. The appendix was identified and that too was found to be within normal limits, as well as her liver edge. Close inspection of the pelvis and abdomen, particularly in the anterior and posterior cul-de-sacs did not reveal any endometriotic implants. At this point in time, given essentially benign pelvic findings, I elected to perform a right salpingo-oophorectomy and lysis of adhesions of the left pelvic sidewall. The right adnexa was first identified and then excised using the LigaSure. The right ureter was identified, and was found to peristalse prior to the excision of the adnexa. It was well away from the right adnexa. Next, small thick adhesions were then lysed using the LigaSure on the left pelvic sidewall. Hemostasis was noted. Photos of the area of lysis of adhesions as well as the pedicle from the right salpingo-oophorectomy were noted to be hemostatically stable, and these were documented with photos. At this point in time, the procedure had been completed. The CO2 gas was allowed to egress in the atmosphere, thus relieving the pneumoperitoneum. All instruments were removed out of the abdomen. The 12 mm incision in the left lower quadrant was closed first with a 0 Vicryl using the Scott-Ulices closure system. All port sites were then closed with a subcuticular stitch of 4 -0 Monocryl. Dermabond was placed on top of all the incisions. All three port sites were finally injected with 1% lidocaine with epinephrine for control of postoperative pain. Patient tolerated the procedure well, was taken back to recovery in stable condition. She will be discharged to home later today after postoperative criteria are met. Patient has an appointment to see me in two weeks for routine postoperative examination. She has been instructed to take ibuprofen and Tylenol for her main control of pain, and she has a prescription for Vicodin available to her. The patient is to call should she have any worsening fevers, chills or abdominal pain. We will discuss surgical findings as well as pathology results with the patient at her 2 week postoperative visit. All sponge, lap, and needle counts were correct x2 as per nurse report. TD: 01/17/2018 09:21 [email or web address]
== END 2018-01-17 06:01 | disposition home or self-care (01) ==
LOC: SDS 06:00
PROVIDERS: ATTEND Obstetrics & Gynecology
PROC: 0UB54ZZ Excision of Right Fallopian Tube, Percutaneous Endoscopic Approach (ICD-10-PCS; 2018-01-17)
PROC: 0DNW4ZZ Release Peritoneum, Percutaneous Endoscopic Approach (ICD-10-PCS; 2018-01-17)
PROC: 0UB04ZZ Excision of Right Ovary, Percutaneous Endoscopic Approach (ICD-10-PCS; principal; 2018-01-17 07:30)
DX: R10.2 Pelvic and perineal pain (principal); R10.31 Right lower quadrant pain; N73.6 Female pelvic peritoneal adhesions (postinfective); Z90.710 Acquired absence of both cervix and uterus
CPT/HCPCS: 49329; 58661; A9270; J0131; J0330; J1170; J3010; J7120

== ENCOUNTER 2018-01-21 12:55 | Emergency (ER) | payer OTHER ==
[2018-01-21] MEDS ORDERED: ONDANSETRON 4 MG/2 ML VIAL IVP STA (13:18)
[2018-01-21] MEDS ORDERED: HYDROmorphone 1 MG/ML CARPUJECT IVP STA ×2 (13:18→14:14)
[2018-01-21] MEDS ORDERED: SODIUM CHLORIDE 0.9% 1,000 ML IV ONE ×2 (13:18)
--- NOTE | 2018-01-21 13:28 | ED Physician Documentation ---
History of Present Illness - Stated complaint Stated Complaint: POST OP PX - Chief complaint Chief Complaint: Abd Pain - History obtained from History obtained from: Patient, Family - History of Present Illness Timing: How many days ago (4) Pain level max: 8 Pain level now: 8 Improved by: nothing Worsened by: palpation, movement - Additonal information Additional information: Patient is a 42-year-old female who presents to the emergency department with increasing abdominal pain and left sided abdominal pain after a laparoscopic oophorectomy and lysis of adhesions 4 days ago. States she feels like her abdomen is increasing in size still. States the pain is not improving, but rather is worsening. Is nauseated. Also feels constipated. Has not had a bowel movement for several days. No fevers. surgery was performed here with Dr. Durham. Review of Systems Ten Systems: 10 systems reviewed and negative Constitutional: denies: Fever Ears: denies: Ear pain Nose: denies: Rhinorrhea / runny nose, Congestion Cardiac: denies: Chest pain / pressure Respiratory: denies: Cough, Wheezing Skin: denies: Rash Musculoskeletal: denies: Neck pain, Back pain Neurologic: denies: Headache PD PAST MEDICAL HISTORY - Past Medical History Cardiovascular: None, Other Respiratory: None Neuro: None Endocrine/Autoimmune: None GI: None DEPARTMENT DIRECTOR: Ovarian cysts : None, Kidney stones (history of kidney stones) HEENT: None Psych: Anxiety Musculoskeletal: Osteoarthritis Derm: None - Past Surgical History Past Surgical History: Yes General: Cholecystectomy Ortho: Arthroscopic surgery /DEPARTMENT DIRECTOR: Tubal ligation, Hysterectomy - Present Medications Home Medications: Ambulatory Orders Medication Instructions Recorded Confirmed Vitamin C/Biotin [Taji-Tqsw-Bpkbx 1 each PO DAILY 01/16/18 01/17/18 Gummies] Oxycodone HCl/Acetaminophen 1 - 2 each PO Q6H PRN #20 tablet 01/21/18 [Percocet 5-325 mg Tablet] - Allergies Allergies/Adverse Reactions: Allergies Allergy/AdvReac Type Severity Reaction Status Date / Time coconut oil Allergy Severe Anaphylaxis Verified 01/21/18 13:19 Penicillins Allergy Severe ANAPHYLAXIS Verified 01/21/18 13:19 tramadol Allergy DIARRHEA Verified 01/21/18 13:19 promethazine HCl * AdvReac Severe Dizziness Verified 01/21/18 13:19 [From Phenergan] - Social History Does the pt smoke?: No Smoking Status: Never smoker Does the pt drink ETOH?: Yes Does the pt have substance abuse?: No - Immunizations Immunizations are current?: Yes - POLST Patient has POLST: No PD ED PE NORMAL - Vitals Vital signs reviewed: Yes - General General: Alert and oriented X 3 - HEENT HEENT: Moist mucous membranes - Neck Neck: Supple, no meningeal sign - Cardiac Cardiac: RRR - Respiratory Respiratory: No respiratory distress, Clear bilaterally - Abdomen Abdomen: Soft, Other (Incisions are clean dry and intact. She has significant tenderness on the left side of the abdomen. There is guarding) - Back Back: No spinal TTP - Derm Derm: Warm and dry, No rash - Extremities Extremities: No edema - Neuro Neuro: Alert and oriented X 3 - Psych Psych: Normal mood, Normal affect Results - Vitals Vitals: Vital Signs - 24 hr 01/21/18 01/21/18 01/21/18 13:16 13:34 15:31 Temperature 37.0 C Heart Rate 83 72 Respiratory 16 16 Rate Blood Pressure 158/123 H 166/101 H 142/98 H O2 Saturation 99 99 Oxygen O2 Source Room air - Labs Labs: Laboratory Tests 01/21/18 01/21/18 13:30 13:30 WBC 5.4 RBC 4.76 Hgb 14.3 Hct 41.7 MCV 87.5 MCH 30.0 MCHC 34.3 RDW 13.2 Plt Count 207 MPV 7.7 L Neut # (Auto) 3.6 Lymph # (Auto) 1.4 L [place] # (Auto) 0.3 Eos # (Auto) 0.1 Baso # (Auto) 0.0 Absolute Nucleated RBC 0.00 Nucleated RBC % 0.0 Sodium 138 Potassium 3.6 Chloride 108 Carbon Dioxide 20 L Anion Gap 10.0 BUN 15 Creatinine 0.6 Estimated GFR (MDRD) 109 Glucose 92 Calcium 8.6 Total Bilirubin 0.7 AST 25 ALT 76 H Alkaline Phosphatase 61 Total Protein 6.9 Albumin 4.1 Globulin 2.8 Albumin/Globulin Ratio 1.5 Lipase 19 L - Rads (name of study) CT abd/pelvis Radiology: Prelim report reviewed, EMP read contemporaneously, See rad report ( Trace pneumoperitoneum and trace free fluid in the pelvis, probably not unexpected after recent surgery. No drainable collections or other acute abnormality. Stable small nonobstructing renal calculi. ) PD MEDICAL DECISION MAKING - ED course Complexity details: reviewed old records, reviewed results, re-evaluated patient , considered differential, d/w patient, d/w family, d/w surgery consultant ED course: 1315 - D/w Dr. Durham and recommends CT scan and labs. Patient with abdominal pain status post recent laparoscopic surgery for lysis of adhesions along with oophorectomy. Pain well controlled in the emergency department. No acute laboratory findings or CT scan findings. Given Relistor for her constipation and will increase her pain medication from Vicodin to Percocet. She is well-appearing, nontoxic. Dr. Jessica Durham was reconsulted after CT scan and imaging, will follow up in the office. Patient counseled regarding signs and symptoms for which I believe and urgent re-evaluation would be necessary. Patient with good understanding of and agreement to plan and is comfortable going home at this time This document was made in part using voice recognition software. While efforts are made to proofread this document, sound alike and grammatical errors may occur. - Sepsis Event Vital Signs: Vital Signs - 24 hr 01/21/18 01/21/18 01/21/18 13:16 13:34 15:31 Temperature 37.0 C Heart Rate 83 72 Respiratory 16 16 Rate Blood Pressure 158/123 H 166/101 H 142/98 H O2 Saturation 99 99 Oxygen O2 Source Room air Departure - Departure Disposition: 01 Home, Self Care Clinical Impression: Post-operative pain Condition: Good Instructions: ED Post Op Pain Follow-Up: Jessica Durham, DO [Provider Admit Priv/Credential] - Within 3 Days Prescriptions: Oxycodone HCl/Acetaminophen [Percocet 5-325 mg Tablet] 1 - 2 each PO Q6H PRN # 20 tablet PRN Reason: pain Comments: Continue the pain medications at home. Return if you worsen. This should improve over the next 2-3 days. Do not drink alcohol or drive while on narcotic pain medicine. Note that many narcotic pain relievers also contain tylenol/acetaminophen. Please ensure that your total dose of acetaminophen from all sources does not exceed 3 grams (3000mg) per day. You may constipated on this medication, take a stool softener such as "Colace" twice a day while you are on it. Also recommend a vjtj-mtj-murseng laxative such as senna or MiraLAX any day that you do not have a bowel movement. If you received narcotic pain medication in the emergency department, do not drive or operate machinery for the next 24 hours. Discharge Date/Time: 01/21/18 15:32
[2018-01-21 13:40] LABS: BASOPHILS % (AUTO) 0.7 %; EOSINOPHILS # (AUTO) 0.1 10^3/uL (0.0-0.7); EOSINOPHILS % (AUTO) 2.7 %; HGB - HEMOGLOBIN 14.3 g/dL (12.0-16.0); LYMPHOCYTES # (AUTO) 1.4 10^3/uL (1.5-3.5); LYMPHOCYTES % (AUTO) 25.7 %; MEAN CORPUSCULAR HGB CONC 34.3 g/dL (32.0-36.0); MEAN CORPUSCULAR VOLUME 87.5 fL (81.0-99.0); MEAN PLATELET VOLUME 7.7 fL (7.9-10.8); MONOCYTES # (AUTO) 0.3 10^3/uL (0.0-1.0); MONOCYTES % (AUTO) 5.5 %; NEUTROPHILS # (AUTO) 3.6 10^3/uL (1.5-6.6); NEUTROPHILS % (AUTO) 65.4 %; PLT - PLATELET COUNT 207 10^3/uL (130-450); RED BLOOD COUNT 4.76 10^6/uL (4.20-5.40); RED CELL DISTRIBUTION WIDTH 13.2 % (12.0-15.0); WHITE BLOOD COUNT 5.4 x10^3/uL (4.8-10.8)
[2018-01-21 13:52] LABS: ALBUMIN 4.1 g/dL (3.2-5.5); ALBUMIN/GLOBULIN RATIO 1.5 (1.0-2.2); BILIRUBIN,TOTAL 0.7 mg/dL (0.2-1.0); CALCIUM 8.6 mg/dL (8.5-10.3); CREATININE 0.6 mg/dL (0.4-1.0); TOTAL PROTEIN 6.9 g/dL (6.7-8.2)
[2018-01-21] MEDS ORDERED: IOPAMIDOL-300 100 ML VIAL ONE (14:02)
[2018-01-21] MEDS ORDERED: IOPAMIDOL-300 100 ML VIAL IVP ONE (14:22)
--- NOTE | 2018-01-21 14:46 | CT Report ---
Procedure Date: 01/21/2018 Accession Number: [id number] / [id number] Procedure: CT - Abdomen/Pelvis W/ CPT Code: FULL RESULT: EXAM: CT ABDOMEN AND PELVIS EXAM DATE: 01/21/2018 02:23 PM. CLINICAL HISTORY: 4 days s/p lap ANTONY and oophorectomy, increase pain. COMPARISONS: 12/13/2017. TECHNIQUE: Routine helical CT imaging was performed through the abdomen and pelvis. IV contrast: ISOVUE 300 100mL. Enteric contrast: No. Reconstructions: Coronal and sagittal. In accordance with CT protocol optimization, one or more of the following dose reduction techniques were utilized for this exam: automated exposure control, adjustment of mA and/or KV based on patient size, or use of iterative reconstructive technique. FINDINGS: Lung Bases: Unremarkable. Liver: Normal. No masses. Gallbladder/Bile Ducts: Surgically absent gallbladder. There is mild dilation of the intrahepatic and extra hepatic bile ducts, likely a consequence of cholecystectomy. Spleen: Normal. Pancreas: Normal. Adrenal Glands: Normal. Kidneys: There are 2 small nonobstructing calculi in the lower pole of the right kidney series 3 image 48, stable from prior. Stable tiny nonobstructing calculus lower pole left kidney series 3 image 42. Negative for hydronephrosis bilaterally. Peritoneal Cavity/Bowel: There is trace pneumoperitoneum. Trace free fluid. No bowel obstruction. No drainable collections. The appendix is well visualized and normal. Pelvic Organs: There is a small amount of air in the nondependent portion of the urinary bladder, question recent instrumentation. Absent uterus. Vasculature: No aneurysms or other significant abnormality. Bones: There is degenerative intervertebral disk space narrowing at L5-S1. Other: Postsurgical changes in the anterior pelvic wall. IMPRESSION: 1. Trace pneumoperitoneum and trace free fluid in the pelvis, probably not unexpected after recent surgery. 2. No drainable collections or other acute abnormality. 3. Stable small nonobstructing renal calculi. RADIA
[2018-01-21] MEDS ORDERED: oxyCODONE 5 MG TABLET PO STA (15:09)
[2018-01-21] MEDS ORDERED: METHYLNALTREXONE 12 MG/0.6 ML VIAL SUBQ ONE (15:10)
[2018-01-21 15:32] VITALS: BP 142/98
== END 2018-01-21 15:32 | disposition home or self-care (01) ==
LOC: ED 12:55
DX: G89.18 Other acute postprocedural pain (principal); K59.00 Constipation, unspecified; N20.0 Calculus of kidney; Z87.442 Personal history of urinary calculi
CPT/HCPCS: 36415; 74177; 80053; 83690; 85025; 96361; 96372; 96374; 96376; 99283; 99284; A9270; J1170; J2212; Q9967

== ENCOUNTER 2018-01-25 14:40 | Outpatient (CLI) | payer OTHER ==
[2018-01-25 14:58] LABS: BASOPHILS # (AUTO) 0.1 10^3/uL (0.0-0.1); BASOPHILS % (AUTO) 1.1 %; EOSINOPHILS # (AUTO) 0.1 10^3/uL (0.0-0.7); EOSINOPHILS % (AUTO) 1.5 %; HGB - HEMOGLOBIN 15.3 g/dL (12.0-16.0); LYMPHOCYTES # (AUTO) 1.8 10^3/uL (1.5-3.5); LYMPHOCYTES % (AUTO) 31.9 %; MEAN CORPUSCULAR HEMOGLOBIN 30.1 pg (27.0-31.0); MEAN CORPUSCULAR HGB CONC 33.6 g/dL (32.0-36.0); MEAN CORPUSCULAR VOLUME 89.6 fL (81.0-99.0); MEAN PLATELET VOLUME 7.8 fL (7.9-10.8); MONOCYTES # (AUTO) 0.4 10^3/uL (0.0-1.0); MONOCYTES % (AUTO) 6.3 %; NEUTROPHILS # (AUTO) 3.3 10^3/uL (1.5-6.6); NEUTROPHILS % (AUTO) 59.2 %; PLT - PLATELET COUNT 229 10^3/uL (130-450); RED BLOOD COUNT 5.08 10^6/uL (4.20-5.40); RED CELL DISTRIBUTION WIDTH 13.5 % (12.0-15.0); WHITE BLOOD COUNT 5.6 x10^3/uL (4.8-10.8)
[2018-01-25 15:06] LABS: BILIRUBIN,URINE NEGATIVE (NEGATIVE); GLUCOSE, URINE (UA) NEGATIVE (NEGATIVE); KETONES,URINE (UA) NEGATIVE (NEGATIVE); LEUKOCYTE ESTERASE, URINE NEGATIVE (NEGATIVE); NITRITE,URINE NEGATIVE (NEGATIVE); OCCULT BLOOD,URINE MODERATE (NEGATIVE); PH,URINE 5.5 PH (5.0-7.5); PROTEIN,URINE NEGATIVE (NEGATIVE); UROBILINOGEN,URINE 0.2 (NORMAL) E.U./dL (NORMAL)
[2018-01-25 15:07] LABS: CLARITY,URINE CLEAR (CLEAR)
[2018-01-25 15:11] LABS: ALBUMIN 4.9 g/dL (3.2-5.5); ALBUMIN/GLOBULIN RATIO 1.5 (1.0-2.2); BILIRUBIN,TOTAL 0.9 mg/dL (0.2-1.0); CALCIUM 9.6 mg/dL (8.5-10.3); CREATININE 0.5 mg/dL (0.4-1.0); TOTAL PROTEIN 8.1 g/dL (6.7-8.2)
[2018-01-25 15:27] LABS: BACTERIA,URINE Few /HPF (None Seen); SQUAMOUS EPITHELIAL CELL,UR FEW Squamous (<= Few)
--- NOTE | 2018-01-25 16:30 | XRAY Report ---
Reason: ACUTE ABDOMEN PAIN Procedure Date: 01/25/2018 Accession Number: [id number] / [id number] Procedure: XR - Abdomen 2 View X-Ray CPT Code: 89934 FULL RESULT: EXAM: ABDOMEN RADIOGRAPHY EXAM DATE: 01/25/2018 03:45 PM. CLINICAL HISTORY: Left sided pain. Hysterectomy 4 days ago. COMPARISON: None. TECHNIQUE: 2 views. FINDINGS: Lung Bases: Unremarkable. Bowel Gas Pattern: Within normal limits. No dilated loops or abnormal fluid levels. Mild stool retention. Free Air: None. Other: Cholecystectomy clips noted. No soft tissue calcifications identified. IMPRESSION: Normal 2-view abdomen x-ray. No bowel obstruction or excessive stool. RADIA
== END 2018-01-25 14:41 | disposition home or self-care (01) ==
LOC: LAB 14:40 → DI 14:41
PROVIDERS: ATTEND Obstetrics & Gynecology
DX: R10.9 Unspecified abdominal pain (principal)
CPT/HCPCS: 36415; 74019; 80053; 81001; 85025

== ENCOUNTER 2018-04-28 08:01 | Observation (INO) | payer OTHER ==
[2018-04-28 08:30] LABS: BILIRUBIN,URINE NEGATIVE (NEGATIVE); GLUCOSE, URINE (UA) NEGATIVE (NEGATIVE); KETONES,URINE (UA) NEGATIVE (NEGATIVE); LEUKOCYTE ESTERASE, URINE NEGATIVE (NEGATIVE); NITRITE,URINE NEGATIVE (NEGATIVE); OCCULT BLOOD,URINE LARGE (NEGATIVE); PROTEIN,URINE NEGATIVE (NEGATIVE); UROBILINOGEN,URINE 0.2 (NORMAL) E.U./dL (NORMAL)
[2018-04-28 08:31] LABS: CLARITY,URINE SL. CLOUDY (CLEAR)
[2018-04-28 08:39] LABS: BACTERIA,URINE None Seen /HPF (None Seen); RBC,URINE TNTC /HPF (0-5); SQUAMOUS EPITHELIAL CELL,UR RARE Squamous (<= Few)
[2018-04-28 08:44] LABS: BASOPHILS % (AUTO) 0.9 %; EOSINOPHILS # (AUTO) 0.1 10^3/uL (0.0-0.7); EOSINOPHILS % (AUTO) 2.9 %; HGB - HEMOGLOBIN 14.7 g/dL (12.0-16.0); LYMPHOCYTES # (AUTO) 1.5 10^3/uL (1.5-3.5); LYMPHOCYTES % (AUTO) 30.1 %; MEAN CORPUSCULAR HEMOGLOBIN 30.5 pg (27.0-31.0); MEAN CORPUSCULAR HGB CONC 34.7 g/dL (32.0-36.0); MONOCYTES # (AUTO) 0.3 10^3/uL (0.0-1.0); MONOCYTES % (AUTO) 6.3 %; NEUTROPHILS # (AUTO) 2.9 10^3/uL (1.5-6.6); NEUTROPHILS % (AUTO) 59.8 %; PLT - PLATELET COUNT 242 10^3/uL (130-450); RED BLOOD COUNT 4.81 10^6/uL (4.20-5.40); RED CELL DISTRIBUTION WIDTH 12.7 % (12.0-15.0); WHITE BLOOD COUNT 4.9 x10^3/uL (4.8-10.8)
[2018-04-28] MEDS ORDERED: KETOROLAC 60 MG/2 ML VIAL IVP STA (08:46)
[2018-04-28] MEDS ORDERED: SODIUM CHLORIDE 0.9% 1,000 ML IV ONE (08:46)
[2018-04-28] MEDS ORDERED: ONDANSETRON 4 MG/2 ML VIAL IVP STA ×2 (08:46→12:55)
[2018-04-28 08:48] LABS: HCG UR QUAL NEGATIVE
--- NOTE | 2018-04-28 08:50 | ED Physician Documentation ---
History of Present Illness - Stated complaint Stated Complaint: R FLANK/LOWER BACK PX - Chief complaint Chief Complaint: Abd Pain - Additonal information Additional information: hx from pt 43 f s/p muriel and hyst hx kidney stones needing lithotripsy has had R flank to right mid abd pain for 2 days fever to 102 general myalgias and illness nausea incontinent of uirine yesterday not today hematuria Review of Systems Constitutional: reports: Fever, Chills, Myalgias, Fatigue Cardiac: denies: Chest pain / pressure Respiratory: denies: Dyspnea, Cough GI: reports: Abdominal Pain, Nausea : reports: Hysterectomy. denies: Now EGA Immunocompromised: reports: Immunocompromised PD PAST MEDICAL HISTORY - Past Medical History Cardiovascular: None, Other Respiratory: None Neuro: None Endocrine/Autoimmune: None GI: None INTERN ARCHITECT: Ovarian cysts : None, Kidney stones (history of kidney stones) HEENT: None Psych: Anxiety Musculoskeletal: Osteoarthritis Derm: None - Past Surgical History Past Surgical History: Yes General: Cholecystectomy Ortho: Arthroscopic surgery /INTERN ARCHITECT: Tubal ligation, Hysterectomy - Present Medications Home Medications: Ambulatory Orders Medication Instructions Recorded Confirmed ALPRAZolam [Alprazolam] 0.5 mg PO QPM PRN 04/28/18 04/28/18 - Allergies Allergies/Adverse Reactions: Allergies Allergy/AdvReac Type Severity Reaction Status Date / Time coconut oil Allergy Severe Anaphylaxis Verified 04/28/18 08:17 Penicillins Allergy Severe ANAPHYLAXIS Verified 04/28/18 08:17 tramadol Allergy DIARRHEA Verified 04/28/18 08:17 promethazine HCl * AdvReac Severe Dizziness Verified 04/28/18 08:17 [From Phenergan] - Social History Does the pt smoke?: No Smoking Status: Never smoker Does the pt drink ETOH?: Yes Does the pt have substance abuse?: No - Immunizations Immunizations are current?: Yes - POLST Patient has POLST: No PD ED PE NORMAL - Vitals Vital signs reviewed: Yes - General General: Alert and oriented X 3, Other (ill appearing) - Neck Neck: Supple, no meningeal sign - Cardiac Cardiac: RRR - Respiratory Respiratory: No respiratory distress - Abdomen Abdomen: Soft, Other (+ sig TTP mid right abd with vol guarding) - Derm Derm: Normal color - Extremities Extremities: No deformity - Neuro Neuro: Alert and oriented X 3 Results - Vitals Vitals: Vital Signs - 24 hr 04/28/18 04/28/18 08:14 11:02 Temperature 36.6 C Heart Rate 114 H 74 Respiratory 20 16 Rate Blood Pressure 162/125 H 147/94 H O2 Saturation 97 98 Oxygen O2 Source Room air - Labs Labs: Laboratory Tests 04/28/18 04/28/18 04/28/18 08:25 08:27 08:36 WBC 4.9 RBC 4.81 Hgb 14.7 Hct 42.3 MCV 88.0 MCH 30.5 MCHC 34.7 RDW 12.7 Plt Count 242 MPV 8.0 Neut # (Auto) 2.9 Lymph # (Auto) 1.5 Owen # (Auto) 0.3 Eos # (Auto) 0.1 Baso # (Auto) 0.0 Absolute Nucleated RBC 0.00 Nucleated RBC % 0.1 Sodium Potassium Chloride Carbon Dioxide Anion Gap BUN Creatinine Estimated GFR (MDRD) Glucose Lactic Acid Calcium Total Bilirubin AST ALT Alkaline Phosphatase Total Protein Albumin Globulin Albumin/Globulin Ratio Lipase Urine Color LT RED Urine Clarity SL. CLOUDY Urine pH 6.0 Ur Specific [place] 1.025 1.025 Urine Protein NEGATIVE Urine Glucose (UA) NEGATIVE Urine Ketones NEGATIVE Urine Occult Blood LARGE H Urine Nitrite NEGATIVE Urine Bilirubin NEGATIVE Urine Urobilinogen 0.2 (NORMAL) Ur Leukocyte Esterase NEGATIVE Urine RBC TNTC H Urine WBC 0-3 Ur Squamous Epith Cells RARE Squamous Urine Bacteria None Seen Ur Microscopic Review INDICATED Urine Culture Comments NOT INDICATED Urine HCG, Qual NEGATIVE 04/28/18 04/28/18 04/28/18 08:36 08:57 11:35 WBC RBC Hgb Hct MCV MCH MCHC RDW Plt Count MPV Neut # (Auto) Lymph # (Auto) Owen # (Auto) Eos # (Auto) Baso # (Auto) Absolute Nucleated RBC Nucleated RBC % Sodium 134 L Potassium 3.8 Chloride 104 Carbon Dioxide 22 Anion Gap 8.0 BUN 16 Creatinine 0.6 Estimated GFR (MDRD) 109 Glucose 102 H Lactic Acid 1.1 Calcium 9.4 Total Bilirubin 0.4 AST 21 ALT 18 Alkaline Phosphatase 71 Total Protein 7.4 Albumin 4.5 Globulin 2.9 Albumin/Globulin Ratio 1.6 Lipase 25 Urine Color YELLOW Urine Clarity HAZY Urine pH 6.0 Ur Specific [place] 1.020 Urine Protein NEGATIVE Urine Glucose (UA) NEGATIVE Urine Ketones NEGATIVE Urine Occult Blood LARGE H Urine Nitrite NEGATIVE Urine Bilirubin NEGATIVE Urine Urobilinogen 0.2 (NORMAL) Ur Leukocyte Esterase NEGATIVE Urine RBC TNTC H Urine WBC 0-3 Ur Squamous Epith Cells RARE Squamous Urine Bacteria None Seen Ur Microscopic Review INDICATED Urine Culture Comments NOT INDICATED Urine HCG, Qual - Rads (name of study) CT AP Radiology: See rad report (no acute, nl appendix, small renal caculi, no ureteral stones, no hydro) PD MEDICAL DECISION MAKING - ED course ED course: fever flank pain, hematuria concern is for infected stone also given right sided pain lesser concern for appy UA neg for infection CT neg for ureteral stones and hydro also no appendicitis cause for fever and flank pain unclear lacate neg nl WBC nl chemistry hx and exam most c/w pyelo pt states she had yelo with same sx in the past so will tx for presumptive pyelo pending cx pt states she did fine with rocephin previosuly after IVF antibiotics pain meds and anti-emetics pt still in too much pain and unable to tolerate PO so could not be dced as planned will req hospitalist to obs for serial abd exams and sx control called hospitalist at 1300 Departure - Departure Disposition: ED Place in Observation Clinical Impression: Flank pain Fever Qualifiers: Fever type: unspecified Qualified Code(s): R50.9 - Fever, unspecified Hematuria Qualifiers: Hematuria type: unspecified type Qualified Code(s): R31.9 - Hematuria, unspeci fied Condition: Fair Discharge Date/Time: 04/28/18 14:26
[2018-04-28 08:57] LABS: ALBUMIN 4.5 g/dL (3.2-5.5); ALBUMIN/GLOBULIN RATIO 1.6 (1.0-2.2); BILIRUBIN,TOTAL 0.4 mg/dL (0.2-1.0); CALCIUM 9.4 mg/dL (8.5-10.3); CREATININE 0.6 mg/dL (0.4-1.0); TOTAL PROTEIN 7.4 g/dL (6.7-8.2)
--- NOTE | 2018-04-28 09:32 | CT Report ---
Reason: renal colic fever Procedure Date: 04/28/2018 Accession Number: [id number] / [id number] Procedure: CT - Abdomen/Pelvis W/O CPT Code: FULL RESULT: EXAM: CT ABDOMEN AND PELVIS EXAM DATE: 04/28/2018 09:04 AM. CLINICAL HISTORY: Renal colic fever. COMPARISONS: ABDOMEN/PELVIS W/ 01/21/2018 2:23 PM ABDOMEN 2 VIEW 01/25/2018 3:21 PM. TECHNIQUE: Routine helical CT imaging was performed through the abdomen and pelvis. IV contrast: None. Enteric contrast: No. Reconstructions: Coronal and sagittal. In accordance with CT protocol optimization, one or more of the following dose reduction techniques were utilized for this exam: automated exposure control, adjustment of mA and/or KV based on patient size, or use of iterative reconstructive technique. FINDINGS: Lung Bases: Mild elevation of the left hemidiaphragm with mild left basal atelectasis. Otherwise clear. Liver: Normal. No masses. Gallbladder/Bile Ducts: Cholecystectomy. No ductal enlargement. Spleen: Normal. Pancreas: Normal. Adrenal Glands: Normal. Kidneys: No hydronephrosis. Nonobstructing lower pole right renal calculi measuring 5 mm and 3 mm, respectively. Punctate nonobstructing left lower pole renal calculus. No convincing ureteral calculi. Peritoneal Cavity/Bowel: No free air or free fluid. No mass or acute inflammatory process. No obstruction. Appendix is normal caliber. Pelvic Organs: Uterus appears to be absent. Urinary bladder is unremarkable. Vasculature: No aneurysms or other significant abnormality. Bones: No acute fracture. No suspicious bony lesion. Advanced disk degeneration L5-S1. Other: None. IMPRESSION: 1. No definite acute abdominopelvic findings. 2. Few small nonobstructing bilateral renal calculi. No hydronephrosis or convincing ureteral calculi. 3. Other findings as noted above. RADIA
[2018-04-28] MEDS: MORPHINE 2 MG/ML CARPUJECT IVP STA ×2 (09:45→10:55)
[2018-04-28] MEDS ORDERED: MORPHINE 2 MG/ML CARPUJECT IVP STA (10:51)
[2018-04-28] MEDS ORDERED: cefTRIAXone 1 GM in SODIUM CHLORIDE 0.9% MINIBAG 100 ML IV STA (11:05)
[2018-04-28 11:38] LABS: BILIRUBIN,URINE NEGATIVE (NEGATIVE); GLUCOSE, URINE (UA) NEGATIVE (NEGATIVE); KETONES,URINE (UA) NEGATIVE (NEGATIVE); LEUKOCYTE ESTERASE, URINE NEGATIVE (NEGATIVE); NITRITE,URINE NEGATIVE (NEGATIVE); OCCULT BLOOD,URINE LARGE (NEGATIVE); PROTEIN,URINE NEGATIVE (NEGATIVE); UROBILINOGEN,URINE 0.2 (NORMAL) E.U./dL (NORMAL)
[2018-04-28 11:39] LABS: CLARITY,URINE HAZY (CLEAR)
[2018-04-28 11:42] LABS: BACTERIA,URINE None Seen /HPF (None Seen); RBC,URINE TNTC /HPF (0-5); SQUAMOUS EPITHELIAL CELL,UR RARE Squamous (<= Few)
[2018-04-28] MEDS ORDERED: SODIUM CHLORIDE FLUSH 0.9% 10 ML SYRINGE IVP PRN (13:50)
[2018-04-28] MEDS ORDERED: ONDANSETRON ODT 4 MG TABLET TL PRN (14:37)
[2018-04-28] MEDS ORDERED: LORazepam 2 MG/ML VIAL IVP PRN (14:42)
[2018-04-28] MEDS: MORPHINE 2 MG/ML CARPUJECT IVP PRN ×4 (14:57→20:35)
[2018-04-28] MEDS: SODIUM CHLORIDE 0.9% 1,000 ML IV SCH ×2 (14:57→22:35)
--- NOTE | 2018-04-28 15:38 | HISTORY & PHYSICAL EXAMINATION ---
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 The patient states that yesterday morning she woke up and had such bad right flank pain described as "getting kicked", fever, chills, and nausea. She states that when she urinated, it was all blood so she knew it must be a kidney stone since having this before about 1.5 years ago. She felt bad all day, so stayed in bed. This morning was a work day for her, so she struggled to get ready and came to work. After less than an hour, she had to tell the ED doctor that she needed help. Attempts were made to get her feeling better with anti-emetics in the ED, but she continued to show very poor response. Imaging including an abdominal CT showed bilateral kidney stones, with the right kidney that had a 5 mm stone. She has been afebrile so far, but reported a fever up to 102 F at home yesterday and chills. History - Past Medical History Cardiovascular: reports: Hypertension (patient chooses not to treat this, since she is "only 43 years old".), Other Respiratory: reports: None Neuro: reports: None Endocrine/Autoimmune: reports: None GI: reports: None MARKETING OPERATIONS ANALYST: reports: Ovarian cysts : reports: Kidney stones (history of kidney stones) HEENT: reports: None Psych: reports: Anxiety Musculoskeletal: reports: Osteoarthritis (spine) Derm: reports: None MRSA Hx?: No - Past Surgical History General: reports: Cholecystectomy Ortho: reports: Arthroscopic surgery /MARKETING OPERATIONS ANALYST: reports: Tubal ligation, Hysterectomy Other past surgical history: Lithotripsy - Family & Social History Family History: Mother: , CAD, Father: Alive and Well, Cancer, Sister: , Mental Illness, Brother: Alive and Well Living arrangement: At home Living Situation: With spouse/s.o., With family Social History Notes: The patient lives independently at home with her teenage child and supportive . She works in our ED as a tech. She denies the use of tobacco, alcohol or illicit drug use. She wishes to be a FULL code. - Substance History Use: Uses substance without health or social issues: NONE Abuse: Recurrent use of substance despite neg consequences: NONE Dependence: Experiences withdrawal or developed tolerances: NONE - POLST Patient has POLST: No POLST Status: Full Code Meds/Allgy - Home Medications Home Medications: Ambulatory Orders Medication Instructions Recorded Confirmed ALPRAZolam [Alprazolam] 0.5 mg PO QPM PRN 04/28/18 04/28/18 - Allergies Allergies/Adverse Reactions: Allergies Allergy/AdvReac Type Severity Reaction Status Date / Time coconut oil Allergy Severe Anaphylaxis Verified 04/28/18 08:17 Penicillins Allergy Severe ANAPHYLAXIS Verified 04/28/18 08:17 tramadol Allergy DIARRHEA Verified 04/28/18 08:17 promethazine HCl * AdvReac Severe Dizziness Verified 04/28/18 08:17 [From Phenergan] Review of Systems - Constitutional Constitutional: reports: Fatigue, Fever, Chills, Weakness, Poor appetite - Eyes Eyes: reports: Blurred vision - Ears, Nose & Throat Ears, Nose & Throat: reports: Sore throat - Cardiovascular Cariovascular: reports: Palpitations (chronic), Lightheadedness - Gastrointestinal Gastrointestinal: reports: Abdominal distention, Nausea, Vomiting, Poor appetite - Genitourinary Genitourinary: reports: Dysuria, Frequency, Urgency, Hematuria, Incontinence, Nocturia - Integumentary Integumentary: reports: Dryness - Psychiatric Psychiatric: reports: Anxiety - All Other Systems All Other Systems: reports: Reviewed and negative Prior Level of Functionality: Works in the ED, independent with no recent falls. Has spinal arthritis that has been stable for years. Exam - Vital Signs Reviewed Vital Signs: Yes Vital Signs: Vital Signs x48h Temp Pulse Pulse Resp BP BP Pulse Ox 04/28/18 14:38 36.8 C 72 13 138/85 H 99 04/28/18 11:02 74 16 147/94 H 98 04/28/18 08:14 36.6 C 114 H 20 162/125 H 97 - Physical Exam General Appearance: positive: Alert, Moderate distress Eyes Bilateral: positive: Normal inspection, PERRL ENT: positive: ENT inspection nml, Pharynx nml, No signs of dehydration Neck: positive: Nml inspection, Thyroid nml, No JVD Respiratory: positive: Chest non-tender, No respiratory distress, Breath sounds nml Cardiovascular: positive: Regular rate & rhythm, Tachycardia, Systolic murmur Peripheral Pulses: positive: 2+ Abdomen: positive: Nml bowel sounds, Other (rounded, obese, soft) Back: positive: Nml inspection Skin: positive: Color nml, No rash, Warm, Dry Extremities: positive: Non-tender, Full ROM, Nml appearance, No pedal edema Neurologic/Psychiatric: positive: Oriented x3, CN's nml (2-12), Motor nml, Sensation nml, Mood/affect nml Reflexes: Bicep (R): 3+, Bicep (L): 3+ Sepsis Event Note (H) - Evaluation Current Stage of Sepsis: Ruled out Possible source of Sepsis: positive: Genitourinary Conclusion/Plan - Problem List (1) Intractable nausea and vomiting Conclusion/Plan: The patient states that when she awoke yesterday AM, which was a day off for her, she became very nauseated and she described her right flank pain as if she got kicked in the side. She began to vomit, and her latest episode was while in the ED prior to admission, which was greenish bile. She has been getting minimal relief from IV zofran. Plan: Continue to monitor, treat underlying cause, and provide anti-emetics. (2) Pyelonephritis Conclusion/Plan: Given the combination of the patient's symptoms, she will be treated for acute pyelonephritis. She has flank pain, fever, chills, and intractable N/V. Final culture results are pending, including blood cultures and she was given IV Rocephin in the ED. Plan: Continue treatment for this acute infection, await cultures, and treat symptoms. (3) Fever Conclusion/Plan: The patient reports that she had a fever up to 102 F at home and has had a temp max of 36.8 C, since arriving in the ED. She also complained chills that is not normal for her. Plan: Continue to monitor and treat with tylenol or NSAIDS. Qualifiers: Fever type: unspecified Qualified Code(s): R50.9 - Fever, unspecified (4) Flank pain Conclusion/Plan: The patient continues to have flank pain on my exam and is first located in her low back that wraps around to her side. She states that it is difficult for her to change positions and this started yesterday AM. This is her second "kidney stone" flair up with the last being about 1.5 years ago. Plan: Continue to monitor and treat pain-keeping in mind her allergies. (5) Hematuria Conclusion/Plan: The patient first noted blood in her urine yesterday AM, which continues today. Her UA also shows this and the culture is pending. She also has a 5 mm stone in the right kidney and a 3 mm stone in the left. Plan: Treat for pyelonephritis, await culture results. Qualifiers: Hematuria type: unspecified type Qualified Code(s): R31.9 - Hematuria, unspecified (6) Renal calculus, bilateral Conclusion/Plan: Imaging showed a few non-obstructing bilateral renal calculi, no hydronephrosis, or convincing ureteral calculi. The right side had the largest stone measuring 5 mm. She has seen a urologist in the past, and had a lithotripsy 1.5 years ago, which successfully solved this problem. She states that the kidney stones are "worse than labor" pains and they come and go. Plan: Continue to treat this acute illness, await culture results and transition to oral antibiotic upon discharge. - Lab Results Lab results reviewed: Yes Fly Bones: 04/28/18 08:36 04/28/18 08:36 Core Measures - Anticipated LOS I expect patient to be DC'd or transferred within 96 hours.: Yes - DVT/VTE - Prophylaxis VTE/DVT Device ordered at admit?: Yes VTE/DVT Prophylaxis med ordered at admit?: No Not Ordered - Medical Reason: Contraindicated - Stroke - Rehab Assessment Rehab services assessment to be ordered?: No Not Ordered - Medical Reason: Contraindicated - AMI - Statin at Admit Aspirin Prescribed on Admit: No Not Ordered - Medical Reason: Contraindicated
[2018-04-28] MEDS: SODIUM CHLORIDE FLUSH 0.9% 10 ML SYRINGE IVP SCH (15:48)
[2018-04-28] MEDS: TAMSULOSIN 0.4 MG CAPSULE PO SCH (16:08)
[2018-04-29] MEDS: MORPHINE 2 MG/ML CARPUJECT IVP PRN ×5 (00:30→15:25)
[2018-04-29] MEDS: ONDANSETRON 4 MG/2 ML VIAL IVP PRN ×2 (00:31→08:44)
[2018-04-29] MEDS: SODIUM CHLORIDE FLUSH 0.9% 10 ML SYRINGE IVP SCH ×3 (01:23→15:25)
[2018-04-29] MEDS ORDERED: SODIUM CHLORIDE 0.9% 1,000 ML IV ONE (05:23)
[2018-04-29] MEDS: SODIUM CHLORIDE 0.9% 1,000 ML IV SCH ×2 (05:26→12:43)
[2018-04-29] MEDS: TAMSULOSIN 0.4 MG CAPSULE PO SCH (08:51)
[2018-04-29] MEDS ORDERED: TAMSULOSIN 0.4 MG CAPSULE PO SCH (09:00)
[2018-04-29] MEDS ORDERED: POLYETHYLENE GLYCOL 3350 17 GM PACKET PO SCH (09:00)
[2018-04-29] MEDS ORDERED: cefTRIAXone 1 GM in SODIUM CHLORIDE 0.9% MINIBAG 100 ML IV SCH (09:00)
--- NOTE | 2018-04-29 15:22 | DISCHARGE SUMMARY ---
Discharge Summary Admit Date: 04/28/18 Discharge Date: 04/29/18 Discharging Provider: MAGUI Whelan Primary Care Provider: Elana Acuña Code Status: Attempt Resuscitation Condition at Discharge: Good Discharge Disposition: 01 Home, Self Care - DIAGNOSES Admission Diagnoses: Nausea with vomiting, unspecified (R11.2) Tubulo-interstitial nephritis, not spcf as acute or chronic (N12) Fever, unspecified (R50.9) Unspecified abdominal pain (R10.9) Hematuria, unspecified (R31.9) Calculus of kidney (N20.0) Discharge Diagnoses with Status of Each Condition: Intractable nausea and vomiting (R11.2) resolved. Flank pain (R10.9) improved. Renal calculus, bilateral (N20.0) chronic, stable. Fever (R50.9) only reported, not found to be febrile while in the hospital. Hematuria (R31.9) resolved. Pyelonephritis (N12) ruled out. 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 The patient states that yesterday morn ing she woke up and had such bad right flank pain described as "getting kicked", fever, chills, and nausea. She states that when she urinated, it was all blood so she knew it must be a kidney stone since having this before about 1.5 years ago. She felt bad all day, so stayed in bed. This morning was a work day for her, so she struggled to get ready and came to work. After less than an hour, she had to tell the ED doctor that she needed help. Attempts were made to get her feeling better with anti-emetics in the ED, but she continued to show very poor response. Imaging including an abdominal CT showed bilateral kidney stones, with the right kidney that had a 5 mm stone. She has been afebrile so far, but reported a fever up to 102 F at home yesterday and chills. - CONSULTS | PROCEDURES Consultations: urology via phone-Dr. Franz - HOSPITAL COURSE Hospital Course: The patient's urine was not found to indicate a UTI, her hematuria resolved, and she had less right flank pain. She was medically stable and discharged home with her via private car with a recommendation to see urology early next week. - ALLERGIES Allergies/Adverse Reactions: Allergies Allergy/AdvReac Type Severity Reaction Status Date / Time coconut oil Allergy Severe Anaphylaxis Verified 04/28/18 08:17 Penicillins Allergy Severe ANAPHYLAXIS Verified 04/28/18 08:17 tramadol Allergy DIARRHEA Verified 04/28/18 08:17 promethazine HCl * AdvReac Severe Dizziness Verified 04/28/18 08:17 [From Phenergan] - MEDICATIONS Home Medications: Ambulatory Orders Medication Instructions Recorded Confirmed ALPRAZolam [Alprazolam] 0.5 mg PO QPM PRN 04/28/18 04/28/18 Ondansetron HCl [Zofran] 4 mg PO Q4H #30 tablet 04/29/18 Saccharomyces Boulardii [Florastor] 250 mg PO BID #60 capsule 04/29/18 Tamsulosin [Flomax] 0.4 mg PO DAILY #30 capsule 04/29/18 oxyCODONE [Roxicodone] 5 mg PO ONCE #25 tablet 04/29/18 - PHYSICAL EXAM AT DISCHARGE General Appearance: positive: No acute distress, Alert Eyes Bilateral: positive: PERRL ENT: positive: ENT inspection nml, Pharynx nml, No signs of dehydration Neck: positive: Thyroid nml, No JVD, Trachea midline Respiratory: positive: Chest non-tender, No respiratory distress, Breath sounds nml Cardiovascular: positive: Regular rate & rhythm, No murmur, No gallop Peripheral Pulses: positive: 2+ Abdomen: positive: Non-tender, Nml bowel sounds Back: positive: Nml inspection, CVA tenderness (R) Skin: positive: Color nml, No rash, Warm, Dry Extremities: positive: Non-tender, Full ROM, Nml appearance, No pedal edema Neurologic/Psychiatric: positive: Oriented x3, CN's nml (2-12), Motor nml, Sensation nml, Mood/affect nml, Other (tearful at times) Reflexes: Bicep (R): 3+, Bicep (L): 3+ - LABS Result Diagrams: 04/29/18 16:40 04/29/18 16:40 - DIAGNOSTIC IMAGING Diagnostic Imaging Results: Final report reviewed Diagnostic Imaging Results Comments: Abdominal/pelvic CT confirmed bilateral kidney calcui. - SEPSIS Current Stage of Sepsis: Ruled out Possible source of Sepsis: Genitourinary - FOLLOW UP Follow Up: Disposition: Home, Self Care Prescriptions: Ondansetron HCl [Zofran] 4 mg PO Q4H #30 tablet oxyCODONE [Roxicodone] 5 mg PO ONCE #25 tablet Saccharomyces Boulardii [Florastor] 250 mg PO BID #60 capsule Tamsulosin [Flomax] 0.4 mg PO DAILY #30 capsule Follow Up instructions: There was large blood in your urine suggesting a kidney stone - but although the CT scan showed stones in your kidneys, none were being actively passed. Although your urine was not a sample worth culturing, you have other symptoms of infection including a fever, flank pain, No kidney tumors on CT A non con CT would not see a renal infarct, but that would not cause you to have a fever of 102. Your appendix was fine. No retained gallstones or dilated gallbladder ducts. No bowel infection, blockage or perforation. Your symptoms are typical of a kidney infection - but the urine does not show any white blood cells or bacteria. This does not appear to be a kidney infection, with you remaining afebrile while in the hospital, no WBC count and the urine without suspicion of being infected. And if you are worse or any new symptoms develop please come back to the ER Please follow up with urology and your PCP within one week. - TIME SPENT Time Spent in Discharge (Minutes): 60
[2018-04-29 15:36] VITALS: BP 150/101
[2018-04-29 16:51] LABS: BASOPHILS % (AUTO) 0.9 %; EOSINOPHILS # (AUTO) 0.2 10^3/uL (0.0-0.7); EOSINOPHILS % (AUTO) 4.3 %; HGB - HEMOGLOBIN 12.8 g/dL (12.0-16.0); LYMPHOCYTES # (AUTO) 1.6 10^3/uL (1.5-3.5); MEAN CORPUSCULAR HEMOGLOBIN 30.4 pg (27.0-31.0); MEAN CORPUSCULAR HGB CONC 33.7 g/dL (32.0-36.0); MEAN CORPUSCULAR VOLUME 90.2 fL (81.0-99.0); MONOCYTES # (AUTO) 0.2 10^3/uL (0.0-1.0); MONOCYTES % (AUTO) 5.8 %; NEUTROPHILS # (AUTO) 1.9 10^3/uL (1.5-6.6); PLT - PLATELET COUNT 215 10^3/uL (130-450); RED BLOOD COUNT 4.23 10^6/uL (4.20-5.40); WHITE BLOOD COUNT 3.9 x10^3/uL (4.8-10.8)
[2018-04-29 17:01] LABS: ALBUMIN 3.3 g/dL (3.2-5.5); ALBUMIN/GLOBULIN RATIO 1.1 (1.0-2.2); BILIRUBIN,TOTAL 0.6 mg/dL (0.2-1.0); CALCIUM 8.3 mg/dL (8.5-10.3); CREATININE 0.5 mg/dL (0.4-1.0); MAGNESIUM 2.1 mg/dL (1.7-2.8); PHOSPHORUS 3.7 mg/dL (2.5-4.6); TOTAL PROTEIN 6.2 g/dL (6.7-8.2)
[2018-04-29 18:12] LABS: BILIRUBIN,URINE NEGATIVE (NEGATIVE); GLUCOSE, URINE (UA) NEGATIVE (NEGATIVE); KETONES,URINE (UA) NEGATIVE (NEGATIVE); LEUKOCYTE ESTERASE, URINE NEGATIVE (NEGATIVE); NITRITE,URINE NEGATIVE (NEGATIVE); OCCULT BLOOD,URINE TRACE-LYSE (NEGATIVE); PH,URINE 6.5 PH (5.0-7.5); PROTEIN,URINE NEGATIVE (NEGATIVE); UROBILINOGEN,URINE 0.2 (NORMAL) E.U./dL (NORMAL)
[2018-04-29 18:19] LABS: CLARITY,URINE CLEAR (CLEAR)
[2018-04-29 18:24] LABS: HB2 TOTAL 13.5 g/dL; HEMOGLOBIN A1C 0.45 g/dL; HEMOGLOBIN A1C % 5.2 % (4.6-6.2)
[2018-04-29 18:25] LABS: BACTERIA,URINE None Seen /HPF (None Seen); RBC,URINE 0-5 /HPF (0-5); SQUAMOUS EPITHELIAL CELL,UR MOD Squamous (<= Few)
== END 2018-04-29 18:36 | disposition home or self-care (01) ==
LOC: ED 08:01 → MS2 13:50 → OBS 14:09
PROVIDERS: ADMIT Nurse Practitioner; ATTEND Nurse Practitioner
DX: R11.2 Nausea with vomiting, unspecified (principal); N20.0 Calculus of kidney; R31.0 Gross hematuria; F41.9 Anxiety disorder, unspecified; I10 Essential (primary) hypertension; Z90.710 Acquired absence of both cervix and uterus; Z90.49 Acquired absence of other specified parts of digestive tract; Z87.442 Personal history of urinary calculi
CPT/HCPCS: 36415; 74176; 80053; 81001; 81025; 83036; 83605; 83690; 83735; 84100; 84443; 85025; 87040; 96361; 96365; 96366; 96375; 96376; 99283; 99284; A9270; G0378; 81003; 87086

== ENCOUNTER 2018-07-16 07:45 | Emergency (ER) | payer BC, OTHER ==
--- NOTE | 2018-07-16 07:55 | ED Physician Documentation ---
PD HPI Fall - Stated complaint Stated Complaint: GLF - History obtained from History obtained from: Patient - History of Present Illness Mechanism of injury: Slipped (slipped on ice and fell onto low back, with pain in low back, radiating down right leg. Has had disc problems in the past with sciatic, but has been good for 5 years or so after disc injections by specialist. No recent back pains prior to the fall today.) Fall distance: Standing position Where injury occurred: Home Timing - onset: Today Injury(ies) location: Back (low lumbar area). No: Head, Neck, Abdomen Associated symptoms: No: LOC, AMS, Weakness Worsens with: Movement Contributing factors: No: Anticoagulated Similar symptoms before: Diagnosis (lower lumbar disc disease with sciatic irritation, improved with PT/meds/injections. No problems the past 5 years.) Recently seen: Not recently seen Review of Systems Constitutional: denies: Fever, Chills Nose: denies: Rhinorrhea / runny nose, Congestion Throat: denies: Sore throat Respiratory: denies: Cough GI: denies: Abdominal Pain, Nausea, Vomiting : denies: Incontinent Skin: denies: Abrasion (s), Laceration (s) Musculoskeletal: reports: Back pain. 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: Ovarian cysts : Kidney stones (history of kidney stones) HEENT: None Psych: Anxiety Musculoskeletal: Osteoarthritis (spine) Derm: None - Past Surgical History Past Surgical History: Yes General: Cholecystectomy Ortho: Arthroscopic surgery /RADIOLOGICAL METALLURGIST: Tubal ligation, Hysterectomy - Present Medications Home Medications: Ambulatory Orders Medication Instructions Recorded Confirmed ALPRAZolam [Alprazolam] 0.5 mg PO QPM PRN 04/28/18 04/28/18 Ondansetron HCl [Zofran] 4 mg PO Q4H #30 tablet 04/29/18 Saccharomyces Boulardii [Florastor] 250 mg PO BID #60 capsule 04/29/18 Tamsulosin [Flomax] 0.4 mg PO DAILY #30 capsule 04/29/18 oxyCODONE [Roxicodone] 5 mg PO ONCE #25 tablet 04/29/18 Cyclobenzaprine [Flexeril] 10 mg PO TID PRN #20 tablet 07/16/18 Dexamethasone [Decadron] 4 mg PO DAILY #5 tablet 07/16/18 Naproxen 375 mg PO BID #20 tablet 07/16/18 Oxycodone HCl/Acetaminophen 1 each PO Q6H PRN #20 tablet 07/16/18 [Percocet 5-325 mg Tablet] - Allergies Allergies/Adverse Reactions: Allergies Allergy/AdvReac Type Severity Reaction Status Date / Time coconut oil Allergy Severe Anaphylaxis Verified 04/28/18 08:17 Penicillins Allergy Severe ANAPHYLAXIS Verified 04/28/18 08:17 tramadol Allergy DIARRHEA Verified 04/28/18 08:17 promethazine HCl * AdvReac Severe Dizziness Verified 04/28/18 08:17 [From Phenergan] - Social History Does the pt smoke?: No Smoking Status: Never smoker Does the pt drink ETOH?: Yes Does the pt have substance abuse?: No - Immunizations Immunizations are current?: Yes - POLST Patient has POLST: No POLST Status: Full Code PD ED PE NORMAL - Vitals Vital signs reviewed: Yes - General General: Alert and oriented X 3, Well developed/nourished, Other (seems in pain for low back right side. ) - HEENT HEENT: Atraumatic - Neck Neck: Supple, no meningeal sign, No bony TTP - Abdomen Abdomen: Soft, Non tender - Back Back: No CVA TTP, Other (tender midline lower back lumbar area and to right muscles and SI area. No noted abrasions. ) - Derm Derm: Normal color, Warm and dry - Neuro Neuro: Alert and oriented X 3, No motor deficit, No sensory deficit, Normal speech Results - Vitals Vitals: Vital Signs - 24 hr 07/16/18 07/16/18 07:57 10:00 Temperature 35.6 C L 36.4 C L Heart Rate 94 82 Respiratory 20 16 Rate Blood Pressure 162/122 H 146/104 H O2 Saturation 100 100 Oxygen O2 Source Room air - Rads (name of study) lumbar CT Radiology: Prelim report reviewed (no fractures; moderate disc disease. ), See rad report PD MEDICAL DECISION MAKING - ED course Complexity details: considered differential (she is driving home after work, so only wanting Toradol, steroid here. Given Rx for meds. ), d/w patient Departure - Departure Disposition: 01 Home, Self Care Clinical Impression: Fall due to ice or snow Qualifiers: Encounter type: initial encounter Qualified Code(s): W00.9XXA - Unspecified fall due to ice and snow, initial encounter Low back strain Qualifiers: Encounter type: initial encounter Qualified Code(s): S39.012A - Strain of muscle, fascia and tendon of lower back, initial encounter Back pain Qualifiers: Back pain location: low back pain Chronicity: acute Back pain laterality: right Sciatica presence: with sciatica Sciatica laterality: sciatica of right side Qualified Code(s): M54.41 - Lumbago with sciatica, right side Condition: Stable Record reviewed to determine appropriate education?: Yes Instructions: ED Sprain Strain Lumbar, ED Sciatica Follow-Up: Elana Cazares DO [Primary Care Provider] - Prescriptions: Cyclobenzaprine [Flexeril] 10 mg PO TID PRN #20 tablet PRN Reason: Spasms Dexamethasone [Decadron] 4 mg PO DAILY #5 tablet Naproxen 375 mg PO BID #20 tablet Oxycodone HCl/Acetaminophen [Percocet 5-325 mg Tablet] 1 each PO Q6H PRN #20 tablet PRN Reason: pain Comments: Heat and gentle stretching for the low back. Naproxen twice daily for the next 7-10 days. Decadron steroid daily for the next 5 days. Add Tylenol or Percocet if needed for pain. Flexeril for stiffness and spasms. Local physical treatments such as chiropractic and massage are good as well. Follow-up with your primary care or your back specialist if not improved over the next several days to week or so. Forms: Activity restrictions Discharge Date/Time: 07/16/18 10:01
[2018-07-16] MEDS ORDERED: KETOROLAC 30 MG/ML VIAL IM STA (08:14)
[2018-07-16] MEDS ORDERED: ACETAMINOPHEN 325 MG TABLET PO STA (08:14)
[2018-07-16] MEDS ORDERED: DEXAMETHASONE 10 MG/ML VIAL PO STA (08:14)
--- NOTE | 2018-07-16 09:11 | CT Report ---
Reason: fell on ice onto buttock/back; prior L4/L5 discs Procedure Date: 07/16/2018 Accession Number: [id number] / [id number] Procedure: CT - Lumbar Spine W/O CPT Code: FULL RESULT: CT LUMBAR SPINE WITHOUT CONTRAST EXAM DATE: 07/16/2018. INDICATION: 43-year-old female. Fell on ice onto left buttock. Concern for possible fracture. Please assess. TECHNIQUE: Helical scan with reconstruction into 2 mm axial images. In addition, sagittal and coronal reformations have been generated. This examination was performed using a bone algorithm. Images are available in bone and soft tissue windows. In accordance with CT protocol optimization, one or more of the following dose reduction techniques were utilized for this exam: automated exposure control, adjustment of mA and/or KV based on patient size, or use of iterative reconstructive technique. COMPARISON: Bone window images from abdomen/pelvis CT 04/28/2018. FINDINGS: There are 5 [id number], lumbar type vertebrae. Again demonstrated is very minimal retrolisthesis of L2 on L3 and L5 on S1, stable. Alignment is otherwise unremarkable. No lumbar spine fracture is identified. The vertebral body heights are maintained throughout. The pedicles and posterior elements appear intact. A small bone density is identified, at the anterior margin of the left superior articular process of S1 (see image 37 of series #7). This could represent a small, minimally displaced fracture fragment. However, this abnormality is also seen on previous body CT of 04/28/2018 and this does not represent an acute avulsion fracture. Again demonstrated are changes of advanced degenerative disk disease with marked disk space narrowing and vacuum change within the disk at L5-S1. There is minor sclerosis in the vertebral endplates on either side of the disk, consistent with reactive change from degenerative disk disease. The lumbar disk space heights are otherwise preserved. Axial Images: T11-T12 through L1-L2: Normal. L2-L3: There is a minor, circumferential disk bulge with associated intraforaminal disk displacement. Mild redundancy of the ligamenta flava and mild prominence of the intralaminar fat pad. Mild mass effect on the thecal sac without significant-appearing spinal stenosis. Mild bilateral foraminal stenoses. L3-L4: Minor, circumferential disk bulge with associated intraforaminal disk displacement. Mild redundancy of the ligamenta flava and mild prominence of the intralaminar fat pad. No significant-appearing spinal canal or foraminal stenosis. L4-L5: Broad-based, posterior extrusion extending posteriorly into the spinal canal for roughly 3 mm. The extrusion appears to be slightly larger, paracentrally to the right than the left. There are small intra/extraforaminal protrusions or extrusions bilaterally. Degenerative facet arthrosis without significant bony hypertrophy. Mild to moderate redundancy of the ligamenta flava. Circumferential thecal sac compression. There is subarticular zone narrowing, worse on the right than the left. No significant central zone spinal stenosis. Mild to moderate foraminal stenoses. L5-S1: Broad-based, posterior extrusion that appears to be largest paracentrally to the right. Associated posterior osteophyte. Broad-based intra/extraforaminal extrusions with associated intraforaminal osteophyte. Degenerative facet arthrosis with mild bony hypertrophy. No significant-appearing central zone spinal stenosis. There is subarticular zone narrowing, right greater than left; however, no obvious compromise of traversing right S1 nerve root is demonstrated. There is mild to moderate foraminal narrowing bilaterally. Degenerative changes are again demonstrated in the sacroiliac joints. The imaged sacrum appears intact. A few small calcifications are again demonstrated in the lower pole collecting system for right kidney. The largest measures about 4 x 3 mm, essentially unchanged. The regional soft tissues are otherwise unremarkable. IMPRESSION: 1. Degenerative disk and facet changes are seen in the lower lumbar spine as described, similar in appearance to previous abdomen/pelvis CT study 04/28/2018. Grossly no significant associated spinal stenosis. 2. No acute lumbar spine pathology is demonstrated. In particular, no fracture is identified and there is no acute malalignment.
[2018-07-16 10:01] VITALS: BP 146/104
== END 2018-07-16 10:01 | disposition home or self-care (01) ==
LOC: ED 07:45
DX: S39.012A Strain of muscle, fascia and tendon of lower back, initial encounter (principal); W00.0XXA Fall on same level due to ice and snow, initial encounter; Y92.009 Unspecified place in unspecified non-institutional (private) residence as the place of occurrence of the external cause; M54.41 Lumbago with sciatica, right side; I10 Essential (primary) hypertension
CPT/HCPCS: 72131; 96372; 99283; A9270

== ENCOUNTER 2018-12-12 06:08 | Emergency (ER) | payer BC ==
--- NOTE | 2018-12-12 06:19 | ED Physician Documentation ---
PD HPI NECK PAIN - Stated complaint Stated Complaint: NECK PX - Chief complaint Chief Complaint: Back Pain - History obtained from History obtained from: Patient - History of Present Illness Timing - onset: Yesterday (with increased symptoms this morning after getting into/out of her jeep (has to pull herself up with arm to get in and caused abrupt worsening of pain in left side of neck).) Timing - duration: Days (1) Timing - details: Abrupt onset (started hurting with just turning head and lifting yesterday and then got worse with spasm this morning.), Still present, Waxing and waning Location: Lower, Left Quality: Pain, Spasm Associated symptoms: Numbness (has feeling of tingling left middle fingers, but 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 No: Fever, Weakness Improves with: Rest. No: Meds (tried naproxen) Worsened by: Movement, Twisting, Palpation Contributing factors: Twisting. 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: Ovarian cysts : Kidney stones HEENT: None Psych: Anxiety Musculoskeletal: Osteoarthritis Derm: None - Past Surgical History Past Surgical History: Yes General: Cholecystectomy Ortho: Arthroscopic surgery /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: Tubal ligation, Hysterectomy - Present Medications Home Medications: Ambulatory Orders Medication Instructions Recorded Confirmed Naproxen 375 mg PO BID #20 tablet 07/16/18 12/12/18 Methocarbamol [Robaxin] 500 mg PO Q6H PRN #20 tablet 12/12/18 Oxycodone HCl/Acetaminophen 1 each PO Q6H PRN #20 tablet 12/12/18 [Percocet 5-325 mg Tablet] dexAMETHasone [Decadron] 4 mg PO DAILY #5 tablet 12/12/18 diazePAM [Diazepam] 5 mg PO TID PRN #20 tablet 12/12/18 - Allergies Allergies/Adverse Reactions: Allergies Allergy/AdvReac Type Severity Reaction Status Date / Time coconut oil Allergy Severe Anaphylaxis Verified 12/12/18 06:12 Penicillins Allergy Severe ANAPHYLAXIS Verified 12/12/18 06:12 tramadol Allergy DIARRHEA Verified 12/12/18 06:12 promethazine HCl * AdvReac Severe Dizziness Verified 12/12/18 06:12 [From Phenergan] - Social History Does the pt smoke?: No Smoking Status: Never smoker Does the pt drink ETOH?: Yes Does the pt have substance abuse?: No - Immunizations Immunizations are current?: Yes - POLST Patient has POLST: No POLST Status: Full Code PD ED PE NORMAL - Vitals Vital signs reviewed: Yes - General General: Alert and oriented X 3, Well developed/nourished, Other (She appears very uncomfortable with guarded range of motion of the neck and is tearful. There is focal tenderness in the left lower cervical muscles with point tenderness. There is no rash nor sores. There is no midline tenderness. Upper extremities show 5 out of 5 motor with symmetric sensation to touch. Subjectively she has some tingling in the middle fingers on the left hand. There is good color and capillary refill in the hand. Lungs are clear to auscultation.) - Neck Neck: Supple, no meningeal sign, No adenopathy - Cardiac Cardiac: RRR, No murmur - Respiratory Respiratory: Clear bilaterally - Derm Derm: Normal color, Warm and dry, No rash - Neuro Neuro: Alert and oriented X 3, No motor deficit, No sensory deficit Results - Vitals Vitals: Vital Signs - 24 hr 12/12/18 06:09 Temperature 36.4 C L Heart Rate 90 Respiratory 24 Rate Blood Pressure 164/103 H O2 Saturation 100 Oxygen O2 Source Room air PD MEDICAL DECISION MAKING - ED course Complexity details: considered differential (Seems myofascial strain with spasm. Possibility of some disc protrusion with the nerve root symptoms. There is no abrupt injury. She does not have acute paresis. No red flags to indicate need for urgent imaging. She had only moderate improvement with Toradol and a Marcaine injection in the triggered muscle. We will give a little stronger medicine), d/w patient Departure - Departure Disposition: 01 Home, Self Care Clinical Impression: Acute strain of neck muscle Qualifiers: Encounter type: initial encounter Qualified Code(s): S16.1XXA - Strain of muscle, fascia and tendon at neck level, initial encounter Condition: Stable Record reviewed to determine appropriate education?: Yes Instructions: ED Sprain Strain Neck Follow-Up: Elana Cazares DO [Primary Care Provider] - Prescriptions: dexAMETHasone [Decadron] 4 mg PO DAILY #5 tablet diazePAM [Diazepam] 5 mg PO TID PRN #20 tablet PRN Reason: Spasms Methocarbamol [Robaxin] 500 mg PO Q6H PRN #20 tablet PRN Reason: Spasms Oxycodone HCl/Acetaminophen [Percocet 5-325 mg Tablet] 1 each PO Q6H PRN #20 tablet PRN Reason: pain Comments: Heat and gentle stretching for the neck presuming some element of spasm. Use some anti-inflammatories such as naproxen or ibuprofen twice daily with food. Decadron steroid anti-inflammatory daily for 5 more days. Use muscle relaxant as needed for spasms. Add Tylenol or pain medicine if needed for pain. Recheck if not improving over the next few days. Forms: Activity restrictions
[2018-12-12] MEDS ORDERED: METHOCARBAMOL 500 MG TABLET PO STA (06:32)
[2018-12-12] MEDS ORDERED: ACETAMINOPHEN 325 MG TABLET PO STA (06:32)
[2018-12-12] MEDS ORDERED: KETOROLAC 30 MG/ML VIAL IM STA (06:32)
[2018-12-12] MEDS ORDERED: diazePAM 5 MG TABLET PO STA (07:31)
[2018-12-12] MEDS ORDERED: HYDROmorphone 1 MG/ML CARPUJECT IM STA (07:31)
[2018-12-12] MEDS ORDERED: ONDANSETRON ODT 4 MG TABLET TL STA (07:58)
[2018-12-12 10:53] VITALS: BP 152/100
== END 2018-12-12 11:00 | disposition home or self-care (01) ==
LOC: ED 06:08
DX: S16.1XXA Strain of muscle, fascia and tendon at neck level, initial encounter (principal); X50.1XXA Overexertion from prolonged static or awkward postures, initial encounter; I10 Essential (primary) hypertension
CPT/HCPCS: 96372; 99283; 99284; A9270; J1170; Q0162

== ENCOUNTER 2019-01-19 18:59 | Outpatient (CLI) | payer BC, OTHER | END 2019-01-19 19:00 | disposition short-term general hospital (02) | LOC: EMS 18:59 | PROVIDERS: ATTEND Surgery | DX: R10.32 Left lower quadrant pain (principal); R10.2 Pelvic and perineal pain; R06.00 Dyspnea, unspecified; R07.9 Chest pain, unspecified; V43.52XA Car driver injured in collision with other type car in traffic accident, initial encounter; Y92.413 State road as the place of occurrence of the external cause | CPT/HCPCS: A0425; A0427 ==

== ENCOUNTER 2019-01-23 19:59 | Emergency (ER) | payer BC ==
[2019-01-23] MEDS ORDERED: ONDANSETRON 4 MG/2 ML VIAL IVP STA ×2 (20:11→22:16)
[2019-01-23] MEDS ORDERED: SODIUM CHLORIDE 0.9% 1,000 ML IV STA (20:11)
[2019-01-23] MEDS ORDERED: MORPHINE 10 MG/ML VIAL IVP STA (20:11)
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
[2019-01-23 20:18] LABS: BASOPHILS % (AUTO) 0.5 %; EOSINOPHILS # (AUTO) 0.2 10^3/uL (0.0-0.7); EOSINOPHILS % (AUTO) 3.1 %; HGB - HEMOGLOBIN 13.7 g/dL (12.0-16.0); LYMPHOCYTES # (AUTO) 0.7 10^3/uL (1.5-3.5); LYMPHOCYTES % (AUTO) 12.5 %; MEAN CORPUSCULAR HEMOGLOBIN 29.8 pg (27.0-31.0); MEAN CORPUSCULAR VOLUME 90.4 fL (81.0-99.0); MEAN PLATELET VOLUME 9.9 fL (7.9-10.8); MONOCYTES # (AUTO) 0.3 10^3/uL (0.0-1.0); MONOCYTES % (AUTO) 5.8 %; NEUTROPHILS # (AUTO) 4.3 10^3/uL (1.5-6.6); NEUTROPHILS % (AUTO) 77.6 %; PLT - PLATELET COUNT 248 10^3/uL (130-450); RED BLOOD COUNT 4.59 10^6/uL (4.20-5.40); RED CELL DISTRIBUTION WIDTH 12.9 % (12.0-15.0); WHITE BLOOD COUNT 5.5 x10^3/uL (4.8-10.8)
[2019-01-23 20:26] LABS: ALBUMIN 3.7 g/dL (3.2-5.5); BILIRUBIN,TOTAL 2.3 mg/dL (0.2-1.0); CALCIUM 9.1 mg/dL (8.5-10.3); CREATININE 0.5 mg/dL (0.4-1.0); TOTAL PROTEIN 7.4 g/dL (6.7-8.2)
[2019-01-23] MEDS ORDERED: IOVERSOL 320 100 ML VIAL IVP ONE ×2 (20:26→22:04)
[2019-01-23 20:50] LABS: HCG,QUALITATIVE BLOOD NEGATIVE
--- NOTE | 2019-01-23 21:44 | CT Report ---
Reason: Recent surg for colon perf, now disten, abd pain Procedure Date: 01/23/2019 Accession Number: [id number] / [id number] Procedure: CT - Abdomen/Pelvis W CPT Code: FULL RESULT: EXAM: CT ABDOMEN AND PELVIS EXAM DATE: 01/23/2019 09:15 PM. CLINICAL HISTORY: Recent surg for colon perf, now disten, abd pain. COMPARISONS: ABDOMEN/PELVIS W/ 01/21/2018 2:23 PM ABDOMEN/PELVIS W/O 04/28/2018 8:55 AM. TECHNIQUE: Routine helical CT imaging was performed through the abdomen and pelvis. IV contrast: 100 cc Optiray 320. Enteric contrast: No. Reconstructions: Coronal and sagittal. In accordance with CT protocol optimization, one or more of the following dose reduction techniques were utilized for this exam: automated exposure control, adjustment of mA and/or KV based on patient size, or use of iterative reconstructive technique. FINDINGS: Lung Bases: Moderate wispy bibasilar atelectasis. Liver: Normal. No masses. Gallbladder/Bile Ducts: Gallbladder surgically absent. No significant ductal dilatation. Spleen: Normal. Pancreas: Normal. Adrenal Glands: Normal. Kidneys: Adjacent 4 mm and 2 mm lower pole right renal calculi. 1.2 cm simple cyst lower pole cortex right kidney. 2 mm lower pole left renal calculus. No hydronephrosis. Peritoneal Cavity/Bowel: Unopacified stomach and duodenum are nondistended. Jejunal loops are borderline distended with fluid and gas measuring up to 3 cm. Ileal loops are nondistended, less than 1 cm in caliber. A transition point is not clearly defined. The appendix is normal. There is minimal formed stool in the colon. There is no focal pericolonic fat stranding. There is trace perihepatic and perisplenic free fluid. There is mild dependent pelvic ascites. There are 2 tiny bubbles of free air in the anterior mid abdomen (4/50), consistent with recent surgery. No abscess is identified. There is no lymphadenopathy. Pelvic Organs: The bladder is unremarkable. The uterus appears to be surgically absent. No adnexal mass is identified. Vasculature: No aneurysms or other significant abnormality. Bones: Degenerative disk disease which is mild at multiple lower thoracic levels and moderate at L5-S1. Other: Minimal deep abdominal wall gas at the level of the umbilicus consistent with a trocar site without discrete fluid collection. As before, there is medialization of the bilateral rectus abdominis muscles suggesting prior abdominoplasty. There is new extensive deep subcutaneous wispy density in the anterior abdominal wall and lateral abdominal wall bilaterally suggesting liposuction. No abdominal wall fluid collection is identified. IMPRESSION: 1. Minimal abdominal and mild pelvic free fluid consistent with recent surgery. No discrete abscess. 2. Trace nondependent free air consistent with recent surgery. 3. Borderline dilation of proximal small bowel and small caliber distal small bowel could reflect ileus or partial mid small bowel obstruction. 4. Evidence of bilateral abdominal wall liposuction. 5. Moderate wispy bibasilar atelectasis. RADIA
[2019-01-23] MEDS ORDERED: MORPHINE 2 MG/ML CARPUJECT IVP STA (22:16)
[2019-01-23 23:22] LABS: BILIRUBIN,URINE NEGATIVE (NEGATIVE); GLUCOSE, URINE (UA) NEGATIVE (NEGATIVE); KETONES,URINE (UA) 40 mg/dL (NEGATIVE); LEUKOCYTE ESTERASE, URINE NEGATIVE (NEGATIVE); NITRITE,URINE NEGATIVE (NEGATIVE); OCCULT BLOOD,URINE SMALL (NEGATIVE); PROTEIN,URINE NEGATIVE (NEGATIVE); UROBILINOGEN,URINE 0.2 (NORMAL) E.U./dL (NORMAL)
[2019-01-23 23:23] LABS: CLARITY,URINE CLEAR (CLEAR)
[2019-01-23 23:28] LABS: BACTERIA,URINE Rare /HPF (None Seen); RBC,URINE 0-5 /HPF (0-5); SQUAMOUS EPITHELIAL CELL,UR FEW Squamous (<= Few)
[2019-01-24] MEDS ORDERED: MORPHINE 2 MG/ML CARPUJECT IVP STA ×2 (01:04→03:33)
[2019-01-24] MEDS ORDERED: LACTATED RINGERS 1,000 ML IV STA (01:26)
[2019-01-24 02:06] LABS: BILIRUBIN,DIRECT 1.2 mg/dL (0.1-0.5)
--- NOTE | 2019-01-24 02:34 | ED Physician Documentation ---
ED Addendum - Addendum Addendum: 01/24/19 02:33 I placed a 20g IV in the L AC under ultrasound guidance. Good flush and return.
[2019-01-24 03:46] VITALS: BP 142/90
== END 2019-01-24 03:46 | disposition short-term general hospital (02) ==
LOC: ED 19:59
DX: K56.600 Partial intestinal obstruction, unspecified as to cause (principal); E86.0 Dehydration; R79.89 Other specified abnormal findings of blood chemistry; R74.8 Abnormal levels of other serum enzymes; Z98.890 Other specified postprocedural states; I10 Essential (primary) hypertension
CPT/HCPCS: 36415; 74177; 80053; 81001; 82248; 83690; 84703; 85025; 96361; 96374; 96376; 99284; 99285; J7120; Q9967; 81003; 82247; 87086

== ENCOUNTER 2019-01-24 03:48 | Outpatient (CLI) | payer BC | END 2019-01-24 03:49 | disposition short-term general hospital (02) | LOC: EMS 03:48 | PROVIDERS: ATTEND Surgery | DX: R10.9 Unspecified abdominal pain (principal); R79.89 Other specified abnormal findings of blood chemistry ==

== ENCOUNTER 2019-01-28 08:00 | Outpatient (CLI) | payer BC ==
[2019-01-28 18:31] LABS: BASOPHILS % (AUTO) 0.5 %; EOSINOPHILS # (AUTO) 0.2 10^3/uL (0.0-0.7); EOSINOPHILS % (AUTO) 2.7 %; HGB - HEMOGLOBIN 14.6 g/dL (12.0-16.0); LYMPHOCYTES # (AUTO) 1.4 10^3/uL (1.5-3.5); LYMPHOCYTES % (AUTO) 18.5 %; MEAN CORPUSCULAR HEMOGLOBIN 30.4 pg (27.0-31.0); MEAN CORPUSCULAR HGB CONC 33.4 g/dL (32.0-36.0); MEAN CORPUSCULAR VOLUME 90.9 fL (81.0-99.0); MEAN PLATELET VOLUME 10.8 fL (7.9-10.8); MONOCYTES # (AUTO) 0.6 10^3/uL (0.0-1.0); MONOCYTES % (AUTO) 7.6 %; NEUTROPHILS # (AUTO) 5.1 10^3/uL (1.5-6.6); NEUTROPHILS % (AUTO) 69.5 %; PLT - PLATELET COUNT 349 10^3/uL (130-450); RED BLOOD COUNT 4.81 10^6/uL (4.20-5.40); RED CELL DISTRIBUTION WIDTH 13.2 % (12.0-15.0); WHITE BLOOD COUNT 7.4 x10^3/uL (4.8-10.8)
[2019-01-28 19:33] LABS: ALBUMIN 3.6 g/dL (3.2-5.5); ALBUMIN/GLOBULIN RATIO 1.1 (1.0-2.2); CREATININE 0.4 mg/dL (0.4-1.0)
[2019-01-28 20:03] LABS: PLATELET ESTIMATE, MANUAL NORMAL (130-450,000) (NORMAL); PLATELET MORPHOLOGY 1+ GIANT PLATELETS (NORMAL); RBC MORPHOLOGY (MULTIPLE) NORMAL APPEARANCE (NORMAL)
== END 2019-01-28 23:59 | disposition home or self-care (01) ==
LOC: LAB.WCP 08:00
PROVIDERS: ATTEND Family Medicine
DX: R94.5 Abnormal results of liver function studies (principal)
CPT/HCPCS: 36415; 80053; 85025

== ENCOUNTER 2019-02-05 11:26 | Outpatient (CLI) | payer OTHER, BC ==
[2019-02-05] MEDS ORDERED: IOVERSOL 320 50 ML VIAL ONE (12:02)
[2019-02-05] MEDS ORDERED: IOVERSOL 320 100 ML VIAL IVP ONE ×2 (12:02→19:00)
--- NOTE | 2019-02-05 13:48 | CT Report ---
Reason: NAUSEA, ABDOMINAL PAIN, ILEUS Procedure Date: 02/05/2019 Accession Number: [id number] / [id number] Procedure: CT - Abdomen/Pelvis W CPT Code: FULL RESULT: EXAM: CT ABDOMEN AND PELVIS EXAM DATE: 02/05/2019 01:16 PM. CLINICAL HISTORY: Nausea, abdominal pain, ileus. COMPARISONS: ABDOMEN/PELVIS W/ 01/23/2019 9:08 PM. TECHNIQUE: Routine helical CT imaging was performed through the abdomen and pelvis. IV contrast: OPTI 320 90 mL. Enteric contrast: Yes. Reconstructions: Coronal and sagittal. In accordance with CT protocol optimization, one or more of the following dose reduction techniques were utilized for this exam: automated exposure control, adjustment of mA and/or KV based on patient size, or use of iterative reconstructive technique. FINDINGS: Lung Bases: Unremarkable. Liver: Normal. No masses. Gallbladder/Bile Ducts: Previous cholecystectomy. Spleen: Normal. Pancreas: Normal. Adrenal Glands: Normal. Kidneys: 3 mm nonobstructing nephrolith lower pole right kidney.. No masses or hydronephrosis. Peritoneal Cavity/Bowel: Postoperative ventral incision without dehiscence or fluid collection. Oral contrast into the distal ileum. No bowel dilatation or air fluid levels to indicate ileus or obstruction. There is a very small free fluid collection in the right dependent portion of the pelvis, significantly decreased versus previous. No free air identified. No abscess. Pelvic Organs: Uterus absent. 1 cm round low-attenuation density left adnexa suggesting an ovarian cyst. The contour of the urinary bladder within normal limits. Vasculature: No aneurysms or other significant abnormality. Bones: No significant abnormality. Other: None. IMPRESSION: No free air or abscess identified. No bowel obstruction or ileus identified. RADIA The call report notification system was initiated by Dr. Mika Burgess at 01:46 PM on 02/05/2019.
[2019-02-05] MEDS ORDERED: IOVERSOL 320 50 ML VIAL PO ONE (19:00)
== END 2019-02-05 11:27 | disposition home or self-care (01) ==
LOC: DI 11:26
PROVIDERS: ATTEND Family Medicine
DX: R11.0 Nausea (principal); R10.9 Unspecified abdominal pain
CPT/HCPCS: 74177; Q9967

== ENCOUNTER 2019-05-09 12:21 | Outpatient (CLI) | payer BC | END 2019-05-09 12:22 | disposition short-term general hospital (02) | LOC: EMS 12:21 | PROVIDERS: ATTEND Surgery | DX: R07.89 Other chest pain (principal); R06.02 Shortness of breath; R21 Rash and other nonspecific skin eruption; R11.0 Nausea ==

== ENCOUNTER 2019-09-17 10:58 | Emergency (ER) | payer BC ==
[2019-09-17] MEDS ORDERED: CHERRY SYRUP 10 ML UDC PO ONE (11:28)
[2019-09-17] MEDS ORDERED: DEXAMETHASONE 10 MG/ML VIAL PO STA (11:28)
[2019-09-17] MEDS ORDERED: KETOROLAC 60 MG/2 ML VIAL IM STA (11:28)
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
[2019-09-17 12:00] VITALS: BP 159/104
== END 2019-09-17 12:11 | disposition home or self-care (01) ==
LOC: ED 10:58
DX: S39.012A Strain of muscle, fascia and tendon of lower back, initial encounter (principal); X58.XXXA Exposure to other specified factors, initial encounter; I10 Essential (primary) hypertension
CPT/HCPCS: 72100; 96372; 99283; 99284; A9270

== ENCOUNTER 2020-03-13 07:00 | Outpatient (CLI) | payer BC ==
[2020-03-13 18:51] LABS: BILIRUBIN,URINE NEGATIVE (NEGATIVE); GLUCOSE, URINE (UA) NEGATIVE (NEGATIVE); KETONES,URINE (UA) NEGATIVE (NEGATIVE); LEUKOCYTE ESTERASE, URINE NEGATIVE (NEGATIVE); NITRITE,URINE NEGATIVE (NEGATIVE); OCCULT BLOOD,URINE TRACE-INTA (NEGATIVE); PROTEIN,URINE NEGATIVE (NEGATIVE); UROBILINOGEN,URINE 0.2 (NORMAL) E.U./dL (NORMAL)
[2020-03-13 18:52] LABS: CLARITY,URINE HAZY (CLEAR)
[2020-03-13 19:27] LABS: RBC,URINE 0-5 /HPF (0-5)
[2020-03-13 19:28] LABS: BACTERIA,URINE Rare /HPF (None Seen); SQUAMOUS EPITHELIAL CELL,UR FEW Squamous (<= Few)
== END 2020-03-13 23:59 | disposition home or self-care (01) ==
LOC: LAB.R 07:00
PROVIDERS: ATTEND Nurse Practitioner Family
DX: R10.9 Unspecified abdominal pain (principal)
CPT/HCPCS: 81001; 87086

== ENCOUNTER 2020-04-21 12:14 | Emergency (ER) | payer BC, OTHER ==
--- NOTE | 2020-04-21 12:26 | ED Physician Documentation ---
PD HPI ABD PAIN - Stated complaint Stated Complaint: RT SIDE PX - History obtained from History obtained from: Patient - History of Present Illness Timing - onset: Today Timing - duration: Hours Timing - details: Gradual onset (initially, but then markedly worse just the past 1/2 hour.) Quality: Aching, Sharp, Pain Location: RLQ Radiation: Right flank (Has been having pain in the right flank through the morning. A little bit at times over the past week or so. She then noticed abrupt worsening of right abdominal to right flank pain about a half an hour ago and is writhing in pain now. She states it feels similar to passing prior stones.) Improved by: No: Laying still Worsened by: No: Moving, Breathing Associated symptoms: Nausea. 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 04/21/20 Ondansetron Odt [Zofran] 4 mg TL Q6H PRN #10 tablet 04/21/20 Oxycodone HCl/Acetaminophen 1 each PO Q4H PRN #15 tablet 04/21/20 [Percocet 7.5-325 mg Tablet] - Allergies Allergies/Adverse Reactions: Allergies Allergy/AdvReac Type Severity Reaction Status Date / Time coconut oil Allergy Severe Anaphylaxis Verified 04/21/20 12:30 Penicillins Allergy Severe ANAPHYLAXIS Verified 04/21/20 12:30 tramadol Allergy DIARRHEA Verified 04/21/20 12:30 promethazine HCl * AdvReac Severe Dizziness Verified 04/21/20 12:30 [From Phenergan] - Social History Does the pt smoke?: No Smoking Status: Never smoker Does the pt drink ETOH?: Yes Does the pt have substance abuse?: No - Immunizations Immunizations are current?: Yes - POLST Patient has POLST: No POLST Status: Full Code PD ED PE NORMAL - Vitals Vital signs reviewed: Yes - General General: Alert and oriented X 3, Well developed/nourished, Other (Appears in considerable pain. Rolling and discomfort. Not finding comfortable position. Tearful in pain.) - Cardiac Cardiac: RRR, No murmur - Respiratory Respiratory: Clear bilaterally - Abdomen Abdomen: Normal bowel sounds, Soft, Non distended, No organomegaly, Other (Some tenderness to the right mid to lower abdomen without any percussion no rebound. There is moderate CVA tenderness on the right. No skin tenderness. No rash or sores.) - Back Back: No CVA TTP - Derm Derm: Normal color, Warm and dry - Neuro Neuro: Alert and oriented X 3, No motor deficit, Normal speech Results - Vitals Vitals: Vital Signs - 24 hr 04/21/20 04/21/20 04/21/20 12:30 13:15 14:00 Temperature 37.1 C Heart Rate 96 83 77 Respiratory 24 20 18 Rate Blood Pressure 198/131 H 194/111 H 189/108 H O2 Saturation 100 97 99 04/21/20 14:30 Temperature 37.0 C Heart Rate 76 Respiratory 16 Rate Blood Pressure 165/96 H O2 Saturation 98 Oxygen O2 Source Room air - Labs Labs: Laboratory Tests 04/21/20 04/21/20 04/21/20 12:45 12:45 12:55 WBC 6.0 RBC 5.14 Hgb 15.4 Hct 46.1 MCV 89.7 MCH 30.0 MCHC 33.4 RDW 12.2 Plt Count 292 MPV 9.8 Neut # (Auto) 3.6 Lymph # (Auto) 1.8 Mccormick # (Auto) 0.4 Eos # (Auto) 0.1 Baso # (Auto) 0.0 Absolute Nucleated RBC 0.00 Nucleated RBC % 0.0 Sodium 134 L Potassium 3.7 Chloride 101 Carbon Dioxide 22 Anion Gap 11.0 BUN 16 Creatinine 0.5 Estimated GFR (MDRD) 133 Glucose 93 Calcium 9.9 Total Bilirubin 0.9 AST 19 ALT 20 Alkaline Phosphatase 74 Total Protein 8.0 Albumin 4.7 Globulin 3.3 Albumin/Globulin Ratio 1.4 Lipase 22 Urine Color LIGHT YELLOW Urine Clarity CLEAR Urine pH 6.5 Ur Specific [place] 1.015 Urine Protein TRACE Urine Glucose (UA) NEGATIVE Urine Ketones NEGATIVE Urine Occult Blood SMALL H Urine Nitrite NEGATIVE Urine Bilirubin NEGATIVE Urine Urobilinogen 0.2 (NORMAL) Ur Leukocyte Esterase NEGATIVE Urine RBC 0-5 Urine WBC 0-3 Ur Squamous Epith Cells RARE Squamous Urine Bacteria Rare Ur Microscopic Review INDICATED Urine Culture Comments NOT INDICATED - Rads (name of study) KUB CT Radiology: Prelim report reviewed (5 mm stone in the right kidney. Other small ones on both sides. No ureteral stones. No hydronephrosis. No other intra- abdominal process to account for pain.), See rad report PD MEDICAL DECISION MAKING - ED course Complexity details: reviewed results, re-evaluated patient (She is feeling quite a bit improved after some IV fluids and medicines. She did give a urine sample and there was no signs of obvious infection. She did go to CT scan subsequently. This did not show any obvious stones nor hydronephrosis. She is feeling reasonably improved however), considered differential, d/w patient ED course: Consideration would be a small stone that passed prior to getting the CT after medication and urine sample. The 5 mm stone in the kidney is similar in location and size to a prior 1 on prior imaging. It is in a location such that I do not think it could act as of flutter valve causing intermittent pain. No other obvious cause at this time aside from a possible passed stone. Departure - Departure Disposition: 01 Home, Self Care Clinical Impression: Acute right flank pain Condition: Stable Record reviewed to determine appropriate education?: Yes Instructions: ED Flank Pain Uncertain Cause Follow-Up: Elana Cazares DO [Primary Care Provider] - Prescriptions: Naproxen [EC-Naproxen] 500 mg PO BID #14 tablet. Oxycodone HCl/Acetaminophen [Percocet 7.5-325 mg Tablet] 1 each PO Q4H PRN #15 tablet PRN Reason: Pain Ondansetron Odt [Zofran] 4 mg TL Q6H PRN #10 tablet PRN Reason: Nausea / Vomiting Comments: Your CT scan shows a stone within the kidney but not showing any signs of blockage of the outlet or the ureter. It looks comparable size and location to the prior [address] scan so I presume its the same stone. You may have had a small stone that you passed and cleared prior to CT scan. Otherwise the CT scan does not identify any other cause of the pain at this time. I presume then that your pain will improve through the afternoon into tomorrow if it is residual from us passed stone. Use anti-inflammatories such as naproxen along with ondansetron for nausea and add Tylenol or pain medicine if needed. Rest today and see how you do through the afternoon into tomorrow. Forms: Activity restrictions Discharge Date/Time: 04/21/20 14:51
[2020-04-21] MEDS ORDERED: ONDANSETRON 4 MG/2 ML VIAL IVP STA (12:34)
[2020-04-21] MEDS ORDERED: HYDROmorphone 1 MG/ML CARPUJECT IVP STA ×2 (12:34→13:37)
[2020-04-21] MEDS ORDERED: SODIUM CHLORIDE 0.9% 1,000 ML IV STA (12:34)
[2020-04-21] MEDS ORDERED: LIDOCAINE-MPF 2% 6 ML in SODIUM CHLORIDE 0.9% 50 ML IV STA (12:35)
[2020-04-21] MEDS ORDERED: KETOROLAC 30 MG/ML VIAL IVP STA (12:35)
[2020-04-21 12:58] LABS: BASOPHILS % (AUTO) 0.7 %; EOSINOPHILS # (AUTO) 0.1 10^3/uL (0.0-0.7); EOSINOPHILS % (AUTO) 1.2 %; HGB - HEMOGLOBIN 15.4 g/dL (12.0-16.0); LYMPHOCYTES # (AUTO) 1.8 10^3/uL (1.5-3.5); MEAN CORPUSCULAR HGB CONC 33.4 g/dL (32.0-36.0); MEAN CORPUSCULAR VOLUME 89.7 fL (81.0-99.0); MEAN PLATELET VOLUME 9.8 fL (7.9-10.8); MONOCYTES # (AUTO) 0.4 10^3/uL (0.0-1.0); MONOCYTES % (AUTO) 7.3 %; NEUTROPHILS # (AUTO) 3.6 10^3/uL (1.5-6.6); NEUTROPHILS % (AUTO) 60.5 %; PLT - PLATELET COUNT 292 10^3/uL (130-450); RED BLOOD COUNT 5.14 10^6/uL (4.20-5.40); RED CELL DISTRIBUTION WIDTH 12.2 % (12.0-15.0)
[2020-04-21 13:05] LABS: BILIRUBIN,URINE NEGATIVE (NEGATIVE); GLUCOSE, URINE (UA) NEGATIVE (NEGATIVE); KETONES,URINE (UA) NEGATIVE (NEGATIVE); LEUKOCYTE ESTERASE, URINE NEGATIVE (NEGATIVE); NITRITE,URINE NEGATIVE (NEGATIVE); OCCULT BLOOD,URINE SMALL (NEGATIVE); PH,URINE 6.5 PH (5.0-7.5); PROTEIN,URINE TRACE mg/dL (NEGATIVE); UROBILINOGEN,URINE 0.2 (NORMAL) E.U./dL (NORMAL)
[2020-04-21 13:06] LABS: CLARITY,URINE CLEAR (CLEAR)
[2020-04-21 13:09] LABS: ALBUMIN 4.7 g/dL (3.2-5.5); ALBUMIN/GLOBULIN RATIO 1.4 (1.0-2.2); BILIRUBIN,TOTAL 0.9 mg/dL (0.2-1.0); CALCIUM 9.9 mg/dL (8.5-10.3); CREATININE 0.5 mg/dL (0.4-1.0)
[2020-04-21 13:19] LABS: BACTERIA,URINE Rare /HPF (None Seen); RBC,URINE 0-5 /HPF (0-5); SQUAMOUS EPITHELIAL CELL,UR RARE Squamous (<= Few)
--- NOTE | 2020-04-21 13:53 | CT Report ---
PROCEDURE: Abdomen/Pelvis WO INDICATIONS: right flank/abd pain, likely kidney stone TECHNIQUE: Noncontrast 5 mm thick sections acquired from the diaphragms to the symphysis. 5 mm coronal and sagi ttal reformats were then performed. For radiation dose reduction, the following was used: automated exposure control, adjustment of mA and/or kV according to patient size. COMPARISON: CT abdomen pelvis 02/05/2019, 01/23/2019 FINDINGS: Image quality: Excellent. ABDOMEN: Lung bases: Lung bases are clear. Heart size is normal. Solid organs: Liver is enlarged. The spleen is normal in size. Gallbladder has been removed. Pancr eas is normal in contours. No adrenal nodules. Kidneys are normal in size, without hydronephrosis . There is a punctate nonobstructing inferior left renal calculus, unchanged. There are 2 calculi iden tified in inferior right renal pole, the largest measuring 5 mm, Hounsfield unit 642, unchanged. Peritoneum and bowel: Unenhanced bowel loops demonstrate normal wall thickness and caliber. No free fluid or air. Nodes and vessels: No retroperitoneal or mesenteric adenopathy by size criteria. Aorta and inferior vena cava are normal in caliber. Miscellaneous: No ventral hernias. PELVIS: Genitourinary: Bladder wall thickness is normal. Miscellaneous: No inguinal hernias or adenopathy. Bones: No suspicious bony lesions. No vertebral body compression fractures. IMPRESSION: 1. Nonobstructing bilateral renal calculi. No calcifications are identified within the ureters or jason dder. 2. Mild hepatomegaly with steatosis. Reviewed by: Mary Jo Contreras MD on 04/21/2020 1:52 PM PST Approved by: Mary Jo Contreras MD on 04/21/2020 1:52 PM PST Station ID: [id number]
[2020-04-21 14:37] VITALS: BP 165/96
== END 2020-04-21 14:51 | disposition home or self-care (01) ==
LOC: ED 12:14
DX: N20.0 Calculus of kidney (principal); Z87.442 Personal history of urinary calculi; I10 Essential (primary) hypertension; R16.0 Hepatomegaly, not elsewhere classified
CPT/HCPCS: 36415; 74176; 80053; 81001; 83690; 85025; 96365; 96375; 96376; 99284; J1170; J7040; 81003; 87086

== ENCOUNTER 2020-11-12 10:20 | Emergency (ER) | payer BC ==
--- OUTSIDE RECORDS SUMMARY | 2020-11-12 10:37 | EXTERNAL MEDICAL SUMMARY RPT | Continuity of Care Document ---
:1975 Demographics Phone Unavailable Preferred Language Unknown Marital Status Unknown Yarsani Affiliation Unknown Race Unknown Ethnic Group Unknown Author Organization [facility] Address [address] [phone] Phone Allergies Encounters Medications Problems Results
[2020-11-12 10:49] LABS: BILIRUBIN,URINE NEGATIVE (NEGATIVE); GLUCOSE, URINE (UA) NEGATIVE (NEGATIVE); KETONES,URINE (UA) NEGATIVE (NEGATIVE); LEUKOCYTE ESTERASE, URINE NEGATIVE (NEGATIVE); NITRITE,URINE NEGATIVE (NEGATIVE); OCCULT BLOOD,URINE TRACE-INTA (NEGATIVE); PROTEIN,URINE 30 mg/dL (NEGATIVE); UROBILINOGEN,URINE 0.2 (NORMAL) E.U./dL (NORMAL)
[2020-11-12 10:51] LABS: CLARITY,URINE CLEAR (CLEAR); HCG UR QUAL NEGATIVE
--- NOTE | 2020-11-12 10:52 | ED Physician Documentation ---
PD HPI ABD PAIN - Stated complaint Stated Complaint: ABD PX - Chief complaint Chief Complaint: Abd Pain - History obtained from History obtained from: Patient - History of Present Illness Timing - onset: How many hours ago (4), Today Timing - duration: Hours (4) Timing - details: Abrupt onset, Still present Quality: Cramping, Aching, Fullness/distended, Pain Location: Periumbilical, Other (mid to lower abd.) Radiation: No: Lower back, Left flank, Right flank Improved by: Vomiting Worsened by: Palpation. No: Breathing Associated symptoms: Nausea, Vomiting (few times this morning with onset of the pain and distension.), Constipation. No: Fever, Diarrhea, Dysuria Similar symptoms before: Diagnosis (bowel obstruction after intestinal surgery few years ago. Current pain does not feel like prior kidney stones.) Recently seen: Not recently seen Review of Systems Constitutional: denies: Fever, Chills Nose: denies: Rhinorrhea / runny nose, Congestion Throat: denies: Sore throat Cardiac: denies: Chest pain / pressure Respiratory: denies: Cough GI: reports: Abdominal Pain (this morning, abrupt onset.), Abdominal Swelling, Nausea, Vomiting. 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: Ovarian cysts : Kidney stones HEENT: None Psych: Anxiety Musculoskeletal: Osteoarthritis Derm: None - Past Surgical History Past Surgical History: Yes General: Cholecystectomy, Bowel surgery Ortho: Arthroscopic surgery /DIRECTOR MARKET INTELLIGENCE: Tubal ligation, Hysterectomy - Present Medications Home Medications: Ambulatory Orders Medication Instructions Recorded Confirmed methocarbamoL [Robaxin] 500 mg PO Q6H PRN #20 tablet 12/12/18 11/12/20 Docusate Sodium 100Mg Capsule 100 mg PO DAILY #10 cap 11/12/20 [Colace 100Mg Capsule] Ondansetron Odt [Zofran] 4 mg TL Q6H PRN #10 tablet 11/12/20 Tamsulosin HCl [Flomax] 0.4 mg PO DAILY PRN 11/12/20 11/12/20 oxyCODONE [Roxicodone] 5 mg PO Q4-6H PRN #12 tablet 11/12/20 - Allergies Allergies/Adverse Reactions: Allergies Allergy/AdvReac Type Severity Reaction Status Date / Time coconut oil Allergy Severe Anaphylaxis Verified 11/12/20 10:36 Penicillins Allergy Severe ANAPHYLAXIS Verified 11/12/20 10:36 tramadol Allergy DIARRHEA Verified 11/12/20 10:36 promethazine HCl * AdvReac Severe Dizziness Verified 11/12/20 10:36 [From Phenergan] - Social History Does the pt smoke?: No Smoking Status: Never smoker Does the pt drink ETOH?: Yes Does the pt have substance abuse?: No - Immunizations Immunizations are current?: Yes - POLST Patient has POLST: No POLST Status: Full Code PD ED PE NORMAL - Vitals Vital signs reviewed: Yes - General General: Alert and oriented X 3, Well developed/nourished, Other (appears in pain, nauseated) - Neck Neck: Supple, no meningeal sign, No adenopathy - Cardiac Cardiac: RRR, No murmur - Respiratory Respiratory: Clear bilaterally - Abdomen Abdomen: No organomegaly, Other (distended abd with general lower to mid tenderness. Increased bowel sounds. ). No: Normal bowel sounds (increased, tympanitic) - Female Female : Deferred - Rectal Rectal: Deferred - Derm Derm: Normal color, Warm and dry Results - Vitals Vitals: Vital Signs - 24 hr 11/12/20 11/12/20 11/12/20 10:34 12:36 14:21 Temperature 37.0 C 37.1 C 36.7 C Heart Rate 89 78 70 Respiratory 22 18 12 Rate Blood Pressure 214/122 H 140/90 H 140/90 H O2 Saturation 99 96 94 Oxygen O2 Source Room air - Labs Labs: Laboratory Tests 11/12/20 11/12/20 11/12/20 10:37 11:14 11:14 WBC 5.0 RBC 4.98 Hgb 15.4 Hct 45.1 MCV 90.6 MCH 30.9 MCHC 34.1 RDW 12.3 Plt Count 225 MPV 9.6 Neut # (Auto) 3.1 Lymph # (Auto) 1.4 L Crisp # (Auto) 0.3 Eos # (Auto) 0.1 Baso # (Auto) 0.0 Absolute Nucleated RBC 0.00 Nucleated RBC % 0.0 Sodium 137 Potassium 3.7 Chloride 101 Carbon Dioxide 23 Anion Gap 13.0 BUN 14 Creatinine 0.4 Estimated GFR (MDRD) 172 Glucose 98 Calcium 9.2 Total Bilirubin 0.7 AST 25 ALT 27 Alkaline Phosphatase 66 Total Protein 8.0 Albumin 4.9 Globulin 3.1 Albumin/Globulin Ratio 1.6 Lipase 22 Urine Color LIGHT YELLOW Urine Clarity CLEAR Urine pH 7.0 Ur Specific Garnett 1.020 Urine Protein 30 H Urine Glucose (UA) NEGATIVE Urine Ketones NEGATIVE Urine Occult Blood TRACE-INTA Urine Nitrite NEGATIVE Urine Bilirubin NEGATIVE Urine Urobilinogen 0.2 (NORMAL) Ur Leukocyte Esterase NEGATIVE Urine RBC 0-5 Urine WBC 0-3 Ur Squamous Epith Cells FEW Squamous Urine Bacteria Few Ur Microscopic Review INDICATED Urine Culture Comments NOT INDICATED Urine HCG, Qual NEGATIVE - Rads (name of study) abd/pelvic CT Radiology: Prelim report reviewed (no acute process, no bowel obstruction, no stones, no free fluid. ), See rad report PD MEDICAL DECISION MAKING - ED course Complexity details: reviewed results (CT without obvious focal process. NO obstruction. This was done after IV meds and PO contrast and time. ), re- evaluated patient (pain improved with fluids/meds. No vomiting here in ER. Able to take sips. ), considered differential (clinically seems likely partial/early SBO with distension, mid/general tender, vomiting and prior surgeries.), d/w patient Departure - Departure Disposition: 01 Home, Self Care Clinical Impression: Lower abdominal pain Partial bowel obstruction Qualifiers: Intestinal obstruction type: unspecified Qualified Code(s): K56.600 - Partial intestinal obstruction, unspecified as to cause Condition: Stable Record reviewed to determine appropriate education?: Yes Instructions: ED Abdominal Pain Unkn Cause Follow-Up: Elana Cazares DO [Primary Care Provider] - Prescriptions: Docusate Sodium 100Mg Capsule [Colace 100Mg Capsule] 100 mg PO DAILY #10 cap oxyCODONE [Roxicodone] 5 mg PO Q4-6H PRN #12 tablet PRN Reason: Pain Ondansetron Odt [Zofran] 4 mg TL Q6H PRN #10 tablet PRN Reason: Nausea / Vomiting Comments: Clinically I think you had a partial bowel obstruction given your symptoms and exam. However it looked okay on CT scan. Since you are doing better at this time, we can have you go home with clear li quid diet tonight into tomorrow. Some basic anti-inflammatory such as ibuprofen or naproxen are okay. Use a dancer [place] if needed for nausea. Add Tylenol or pain medicine if needed for pain. Mild stool softener daily for the next several days to week as well. Resume normal diet and activity if feeling okay tomorrow. Return if worse again. I am prescribing a short course of narcotic pain medication for you. These are potentially dangerous and addictive medications that should be used carefully. These medications may constipate you. Take an qqpp-gba-aotgqja stool softener such as docusate twice daily with plenty of water while taking these medications. If you go 24 hours without a bowel movement, take yesf-scz-wpusacj MiraLAX, per package instructions. Do not drink or drive while taking these medications. If you received narcotic or sedating medications while in the emergency department do not drive for 24 hours. Store this medication in a safe, secure place and out of reach of children. It is a violation of federal law to give or sell this medication to another person or to use in a manner other than prescribed. The ED will not refill narcotic prescriptions, including prescriptions lost or stolen. You can dispose of unwanted medications at the [facility]'s office or at several pharmacies such as [facility]. Discharge Date/Time: 11/12/20 14:48
[2020-11-12] MEDS ORDERED: SODIUM CHLORIDE 0.9% 1,000 ML IV STA (11:00)
[2020-11-12] MEDS ORDERED: ONDANSETRON 4 MG/2 ML VIAL IVP STA (11:00)
[2020-11-12] MEDS ORDERED: HYDROmorphone 1 MG/ML CARPUJECT IVP STA ×2 (11:00→12:22)
[2020-11-12] MEDS ORDERED: KETOROLAC 15 MG/ML VIAL IVP STA (11:00)
[2020-11-12] MEDS ORDERED: IOPAMIDOL-300 50 ML VIAL ONE (11:05)
[2020-11-12] MEDS ORDERED: IOVERSOL 320 100 ML VIAL IVP ONE ×2 (11:05→17:03)
[2020-11-12 11:06] LABS: BACTERIA,URINE Few /HPF (None Seen); RBC,URINE 0-5 /HPF (0-5); SQUAMOUS EPITHELIAL CELL,UR FEW Squamous (<= Few); WBC,URINE 0-3 /HPF (0-5)
[2020-11-12 11:20] LABS: BASOPHILS % (AUTO) 0.8 %; EOSINOPHILS # (AUTO) 0.1 10^3/uL (0.0-0.7); EOSINOPHILS % (AUTO) 1.2 %; HCT - HEMATOCRIT 45.1 % (37.0-47.0); HGB - HEMOGLOBIN 15.4 g/dL (12.0-16.0); LYMPHOCYTES # (AUTO) 1.4 10^3/uL (1.5-3.5); LYMPHOCYTES % (AUTO) 28.7 %; MEAN CORPUSCULAR HEMOGLOBIN 30.9 pg (27.0-31.0); MEAN CORPUSCULAR HGB CONC 34.1 g/dL (32.0-36.0); MEAN CORPUSCULAR VOLUME 90.6 fL (81.0-99.0); MEAN PLATELET VOLUME 9.6 fL (7.9-10.8); MONOCYTES # (AUTO) 0.3 10^3/uL (0.0-1.0); MONOCYTES % (AUTO) 6.6 %; NEUTROPHILS # (AUTO) 3.1 10^3/uL (1.5-6.6); NEUTROPHILS % (AUTO) 62.3 %; PLT - PLATELET COUNT 225 10^3/uL (130-450); RED BLOOD COUNT 4.98 10^6/uL (4.20-5.40); RED CELL DISTRIBUTION WIDTH 12.3 % (12.0-15.0)
[2020-11-12 11:33] LABS: ALBUMIN 4.9 g/dL (3.2-5.5); ALBUMIN/GLOBULIN RATIO 1.6 (1.0-2.2); BILIRUBIN,TOTAL 0.7 mg/dL (0.2-1.0); CALCIUM 9.2 mg/dL (8.5-10.3); CREATININE 0.4 mg/dL (0.4-1.0); POTASSIUM 3.7 mmol/L (3.5-5.0)
[2020-11-12] MEDS ORDERED: DROPERIDOL 5 MG/2 ML VIAL IVP STA (12:53)
[2020-11-12 13:02] VITALS: BP 140/90
--- NOTE | 2020-11-12 13:28 | CT Report ---
PROCEDURE: Abdomen/Pelvis W INDICATIONS: mid to lower abd pain, possible bowel obstruction CONTRAST: IV CONTRAST: Optiray 320 ml: 100 PO CONTRAST: Isovue 300 ml50 TECHNIQUE: After the administration of contrast, 5 mm thick sections acquired from the diaphragms to the sym physis. 5 mm thick coronal and sagittal reformats were acquired. For radiation dose reduction, the following was used: automated exposure control, adjustment of mA and/or kV according to patient size . COMPARISON: None. FINDINGS: Image quality: Excellent. ABDOMEN: Lung bases: Lung bases are clear. Heart size is normal. Solid organs: Liver and spleen are normal in size and enhancement. Gallbladder has been previously resected Biliary system is non dilated. Pancreas enhances normally. No adrenal nodules. Kidneys d emonstrate normal size and enhancement, without hydronephrosis. There is a 4 mm nonobstructive calcu claire at the lower third collecting system of the right kidney. Peritoneum and bowel: Bowel loops demonstrate normal wall thickness and caliber. No free fluid or a ir. Nodes and vessels: No retroperitoneal or mesenteric adenopathy by size criteria. Aorta and inferior vena cava are normal in size. Miscellaneous: No ventral hernias. PELVIS: Genitourinary: Bladder wall thickness is normal. Miscellaneous: No inguinal hernias or adenopathy. No intestinal obstruction or perforation is found . There is no sign of diverticulitis. Bones: No suspicious bony lesions. No vertebral body compression fractures. IMPRESSION: Incidental finding of a 4 mm calculus at the lower third collecting system of the right kidney, nonobstructive. No evidence of intestinal obstruction or perforation. No inflammatory process is seen throughout the abdomen or pelvis. Source of current symptomatology is not found. Reviewed by: Yogesh Sykes MD on 11/12/2020 1:26 PM PDT Approved by: Yogesh Sykes MD on 11/12/2020 1:26 PM PDT Station ID: [id number]
[2020-11-12] MEDS ORDERED: IOPAMIDOL-300 50 ML VIAL PO ONE (17:03)
== END 2020-11-12 14:48 | disposition home or self-care (01) ==
LOC: ED 10:20
DX: K56.600 Partial intestinal obstruction, unspecified as to cause (principal); N20.0 Calculus of kidney; I10 Essential (primary) hypertension
CPT/HCPCS: 36415; 74177; 80053; 81001; 81025; 83690; 85025; 96361; 96374; 96375; 96376; 99284; 99285; J1170; Q9967; 81003; 87086

== ENCOUNTER 2021-03-20 15:04 | Outpatient (CLI) | payer SELFPAY | END 2021-03-20 15:05 | disposition critical access hospital (66) | LOC: EMS 15:04 | DX: R51.9 Headache, unspecified (principal); R04.0 Epistaxis | CPT/HCPCS: A0425; A0427 ==

== ENCOUNTER 2021-03-20 15:31 | Emergency (ER) | payer SELFPAY ==
[2021-03-20] MEDS ORDERED: SILVER NITRATE APPLICATOR TOP STA ×2 (15:32→15:38)
[2021-03-20] MEDS ORDERED: OXYMETAZOLINE HCL 100 SPRAYS BOTTLE NAS STA (15:32)
[2021-03-20] MEDS ORDERED: LIDOCAINE-EPINEPH-TETRACAINE 3 ML SYRINGE TOP STA (15:33)
--- NOTE | 2021-03-20 15:34 | ED Physician Documentation ---
PD HPI HEENT - Stated complaint Stated Complaint: NOSE BLEED/DIZZY - History obtained from History obtained from: Patient, EMS - Additional information Additional information: She was cleaning out her right nares with a Q-tip at home and developed profuse nosebleed. It is associated with significant anxiety and elevated blood pressures in route. No anticoagulants. 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: Ovarian cysts : Kidney stones HEENT: None Psych: Anxiety Musculoskeletal: Osteoarthritis Derm: None - Past Surgical History Past Surgical History: Yes General: Cholecystectomy, Bowel surgery Ortho: Arthroscopic surgery /SPORTS THERAPIST: Tubal ligation, Hysterectomy - Present Medications Home Medications: Ambulatory Orders Medication Instructions Recorded Confirmed methocarbamoL [Robaxin] 500 mg PO Q6H PRN #20 tablet 12/12/18 11/12/20 Docusate Sodium 100Mg Capsule 100 mg PO DAILY #10 cap 11/12/20 [Colace 100Mg Capsule] Ondansetron Odt [Zofran] 4 mg TL Q6H PRN #10 tablet 11/12/20 Tamsulosin HCl [Flomax] 0.4 mg PO DAILY PRN 11/12/20 11/12/20 oxyCODONE [Roxicodone] 5 mg PO Q4-6H PRN #12 tablet 11/12/20 - Allergies Allergies/Adverse Reactions: Allergies Allergy/AdvReac Type Severity Reaction Status Date / Time coconut oil Allergy Severe Anaphylaxis Verified 03/20/21 15:42 Penicillins Allergy Severe ANAPHYLAXIS Verified 03/20/21 15:42 tramadol Allergy DIARRHEA Verified 03/20/21 15:42 promethazine HCl * AdvReac Severe Dizziness Verified 03/20/21 15:42 [From Phenergan] - Social History Does the pt smoke?: No Smoking Status: Never smoker Does the pt drink ETOH?: Yes Does the pt have substance abuse?: No - Immunizations Immunizations are current?: Yes - POLST Patient has POLST: No POLST Status: Full Code PD ED PE NORMAL - Vitals Vital signs reviewed: Yes - General General: Alert and oriented X 3, Other (She is hyperventilating and retching) - HEENT HEENT: PERRL, EOMI, Other (Active bleeding from a visible spot on right Kiesselbach's plexus) - Neck Neck: Supple, no meningeal sign, No bony TTP - Neuro Neuro: Alert and oriented X 3, Normal speech - Psych Psych: Other (anxious) Results - Vitals Vitals: Vital Signs - 24 hr 03/20/21 03/20/21 15:31 16:01 Temperature 37.4 C Heart Rate 108 H 96 Respiratory 22 Rate Blood Pressure 216/112 H 177/120 H O2 Saturation 97 Oxygen O2 Source Room air Procedures - Epistaxis Site: Right Preparation: Clots removed, Afrin, Lidocaine (LET gel), Clamp / pressure applied Treatment: Silver Nitrate Departure - Departure Disposition: Home, Self Care Clinical Impression: Epistaxis Condition: Good Instructions: ED Nosebleed Comments: Your blood pressure was elevated today on check into the emergency department. This does not mean that you have hypertension, it is a common phenomenon to come to the emergency department and have elevated blood pressure. I recommend that you see your primary care physician within the week to have it rechecked when you are feeling better.
[2021-03-20] MEDS ORDERED: LORazepam 2 MG/ML VIAL IVP STA (15:41)
[2021-03-20 16:40] VITALS: BP 165/108
== END 2021-03-20 16:45 | disposition home or self-care (01) ==
LOC: EDUNIT# → ED 15:31
DX: R04.0 Epistaxis (principal)
CPT/HCPCS: 30901; 96374; 99283; A9270; J2060

== ENCOUNTER 2023-09-10 15:16 | Emergency (ER) | payer BC ==
[2023-09-10] MEDS: oxyCODONE 5 MG TABLET PO STA (15:56)
[2023-09-10] MEDS: lisinopriL 5 MG TABLET PO STA (15:56)
--- NOTE | 2023-09-10 16:02 | ED Physician Documentation ---
PD HPI LOWER EXT INJURY - Stated complaint Stated Complaint: RT HEEL INJ - Chief complaint Chief Complaint: Ext Problem - History obtained from History obtained from: Patient - History of Present Illness PD HPI LOW EXT INJURY LOCATION: Right, Other (heel) Where injury occurred: Street Timing - onset: How many hours ago (1) Timing - duration: Hours (1) Timing - details: Abrupt onset Pain level max: 8 Pain level now: 8 Improved by: Rest, Ice, Immobilization Worsened by: Moving, Palpating Associated symptoms: Swelling. 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: Ovarian cysts : Kidney stones HEENT: None Psych: Anxiety Musculoskeletal: Osteoarthritis Derm: None - Past Surgical History Past Surgical History: Yes General: Cholecystectomy, Bowel surgery Ortho: Arthroscopic surgery /FOAM FABRICATOR: Tubal ligation, Hysterectomy - Present Medications Home Medications: Ambulatory Orders Medication Instructions Recorded Confirmed Lisinopril [Zestril] 10 mg PO DAILY #30 tablet 09/10/23 Naproxen Sodium [Aleve] 220 mg PO BID PRN 09/10/23 09/10/23 Oxycodone HCl/Acetaminophen 1 - 2 each PO Q6H PRN #14 tablet 09/10/23 [Percocet 5-325 mg Tablet] MDD 6 tabs - Allergies Allergies/Adverse Reactions: Allergies Allergy/AdvReac Type Severity Reaction Status Date / Time coconut oil Allergy Severe Anaphylaxis Verified 09/10/23 15:19 Penicillins Allergy Severe ANAPHYLAXIS Verified 09/10/23 15:19 tramadol Allergy DIARRHEA Verified 09/10/23 15:19 promethazine HCl * AdvReac Severe Dizziness Verified 09/10/23 15:19 [From Phenergan] - Social History Does the pt smoke?: No Smoking Status: Never smoker Does the pt drink ETOH?: Yes Does the pt have substance abuse?: No - Immunizations Immunizations are current?: Yes - POLST Patient has POLST: No POLST Status: Full Code PD ED PE NORMAL - Vitals Vital signs reviewed: Yes - General General: Alert and oriented X 3, No acute distress - HEENT HEENT: Moist mucous membranes - Neck Neck: Supple, no meningeal sign - Cardiac Cardiac: RRR - Respiratory Respiratory: No respiratory distress, Clear bilaterally - Derm Derm: Warm and dry - Extremities Extremities: Other (R heel - Tender to palpation over the posterior aspect of the calcaneus near the Achilles tendon insertion. Negative Mcdermott's test. Neurovascularly intact. Otherwise normal examination of the foot and ankle.) - Neuro Neuro: Alert and oriented X 3 Results - Vitals Vitals: Vital Signs - 24 hr 09/10/23 09/10/23 09/10/23 15:19 15:32 16:41 Temperature 36.8 C 36.7 C Heart Rate 90 94 82 Respiratory 16 18 16 Rate Blood Pressure 250/150 H 253/139 H 189/115 H O2 Saturation 99 100 98 09/10/23 17:15 Temperature Heart Rate 70 Respiratory 16 Rate Blood Pressure 171/85 H O2 Saturation 100 Oxygen O2 Source Room air - Rads (name of study) R calcaneus xray Relevant Findings:: Final report received, See rad report PD Medical Decision Making - ED course Complexity details: reviewed results, re-evaluated patient, considered differential, d/w patient ED course: 48-year-old female presents the emergency department with right posterior heel pain. Improved with pain medication. Has a large calcaneal heel spur. Placed in a walking boot. Will have her follow-up with orthopedics and/or podiatry for further care. She also had significant hypertension. Has been off her medications for several months. Will restart her on lisinopril. Given lisinopril here and blood pressure did decrease. No evidence of Achilles tendon rupture.We will have the patient follow-up with her PCP for her hypertension. Patient counseled regarding signs and symptoms for which I believe and urgent re-evaluation would be necessary. Patient with good understanding of and agreement to plan and is comfortable going home at this time This document was made in part using voice recognition software. While efforts are made to proofread this document, sound alike and grammatical errors may occur. Departure - Departure Disposition: 01 Home, Self Care Clinical Impression: Calcaneal spur Qualifiers: Laterality: right Qualified Code(s): M77.31 - Calcaneal spur, right foot Condition: Good Instructions: ED HTN Established Follow-Up: [facility] [Provider Group] Lennox Cabrera, DIMITRIM [Physician No Access] - Prescriptions: Oxycodone HCl/Acetaminophen [Percocet 5-325 mg Tablet] 1 - 2 each PO Q6H PRN #14 tablet MDD 6 tabs PRN Reason: pain Lisinopril [Zestril] 10 mg PO DAILY #30 tablet Comments: Please follow-up with orthopedics or podiatry for further care. You do have large calcaneal heel spurs. The boot should help to decrease the inflammation. Podiatry orthopedics can provide further treatment for this. Your prescriptions were sent to [facility] in [place]. You should also have your blood pressure followed up by your primary care siomara nguyen. We will start you on lisinopril. I am prescribing a short course of narcotic pain medication for you. These are potentially dangerous and addictive medications that should be used carefully. These medications may constipate you. Take an hfyj-jdu-zoxftwm stool softener (docusate) twice daily with plenty of water while taking these medications. If you go 24 hours without a bowel movement, take xrar-hlk-zsodole miralax, per package instructions. Do not drink or drive while taking these medications. If you received narcotic or sedating medications while in the emergency department, do not drive for 24 hours. Store this medication in a safe, secure place and out of reach of children. It is a violation of federal law to give or sell this medication to another person or to use in a manner other than prescribed. The ED will not refill narcotic prescriptions, including prescriptions lost or stolen. To dispose of unwanted medications: 1. [facility] [address] in [place] has a medication drop box. They accept prescription medications (in pill form) Monday through Monday 9:00 a.m. to 5:00 p.m. 2. The [facility] accepts prescription medications (in pill form only) for disposal year round. Call for more information. 3. Contact the [facility] for the next [facility] sponsored prescription drug collection event. , [phone], or [phone]; Forms: PCP List Discharge Date/Time: 09/10/23 17:20
--- NOTE | 2023-09-10 16:39 | XRAY Report ---
PROCEDURE: Calcaneus 2+V RT INDICATIONS: R heel pain TECHNIQUE: Two views of the calcaneus were acquired. COMPARISON: None FINDINGS: Bones: No fractures or dislocations. No suspicious bony lesions. Posterior and plantar large calcan eal spurs. Soft tissues: No suspicious calcifications. Achilles tendon appears normal. IMPRESSION: Large calcaneal spurs associated with posterior soft tissue swelling. No radiopaque foreign body Reviewed by: Petey Gould MD on 09/10/2023 3:37 PM AKGUERO Approved by: Petey Gould MD on 09/10/2023 3:37 PM AKDT Station ID: [id number]
[2023-09-10 17:19] VITALS: BP 171/85; O2SAT 100
== END 2023-09-10 17:20 | disposition home or self-care (01) ==
LOC: ED 15:16
DX: M77.31 Calcaneal spur, right foot (principal); I10 Essential (primary) hypertension
CPT/HCPCS: 73650; 99283; A9270

== ENCOUNTER 2023-10-30 23:05 | Outpatient (CLI) | payer BC | END 2023-10-30 23:06 | disposition critical access hospital (66) | LOC: EMS 23:05 | DX: R07.89 Other chest pain (principal); I10 Essential (primary) hypertension; H53.8 Other visual disturbances; R00.0 Tachycardia, unspecified; R42 Dizziness and giddiness; R11.0 Nausea | CPT/HCPCS: A0425; A0427 ==

== ENCOUNTER 2023-10-30 23:35 | Emergency (ER) | payer BC ==
--- NOTE | 2023-10-30 23:49 | ED Physician Documentation ---
History of Present Illness - Stated complaint Stated Complaint: CHEST PX - History obtained from History obtained from: EMS - Additonal information Additional information: Patient is brought to the emergency department by EMS for chief complaint of chest pressure. It apparently started tonight, though the patient is not able to give any history. Medics state that after picking her up, they gave her an aspirin, a dose of nitroglycerin, and 2 mg of morphine IV. Almost immediately after however the patient almost seem to become catatonic, just staring ahead, not blinking, and minimally responsive. The response that she has given have been very slow. The patient is able to shake her head no when I ask her if she has any further pain. At this response is fairly delayed. Medics do report that family stated patient is under a lot of stress lately. She is not known to have any coronary artery disease. She does have a history of hypertension and takes lisinopril but has not had her dose tonight. 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: Ovarian cysts : Kidney stones HEENT: None Psych: Anxiety Musculoskeletal: Osteoarthritis Derm: None - Past Surgical History Past Surgical History: Yes General: Cholecystectomy, Bowel surgery Ortho: Arthroscopic surgery /SAP BI ARCHITECT: Tubal ligation, Hysterectomy - Present Medications Home Medications: Ambulatory Orders Medication Instructions Recorded Confirmed Lisinopril [Zestril] 10 mg PO DAILY #30 tablet 09/10/23 10/31/23 - Allergies Allergies/Adverse Reactions: Allergies Allergy/AdvReac Type Severity Reaction Status Date / Time coconut oil Allergy Severe Anaphylaxis Verified 10/30/23 23:41 Penicillins Allergy Severe ANAPHYLAXIS Verified 10/30/23 23:41 tramadol Allergy DIARRHEA Verified 10/30/23 23:41 promethazine HCl * AdvReac Severe Dizziness Verified 10/30/23 23:41 [From Phenergan] - Social History Does the pt smoke?: No Smoking Status: Never smoker Does the pt drink ETOH?: Yes Does the pt have substance abuse?: No - Immunizations Immunizations are current?: Yes - POLST Patient has POLST: No POLST Status: Full Code PD ED PE NORMAL - Vitals Vital signs reviewed: Yes - General General: No acute distress, Well developed/nourished, Other (The patient sits in bed with her eyes open, not blinking. When her name is said, she sometimes does not answer at all but sometimes will very slowly look towards the person who has said her name.) - HEENT HEENT: Atraumatic, PERRL, Moist mucous membranes - Neck Neck: Supple, no meningeal sign - Cardiac Cardiac: RRR, No murmur - Respiratory Respiratory: No respiratory distress, Clear bilaterally - Abdomen Abdomen: Soft, Non tender, Non distended - Derm Derm: Normal color, Warm and dry, No rash - Extremities Extremities: No deformity, No edema - Neuro Neuro: Other (Awake but very slow to respond, minimally verbal. Moving all extremities but minimally.) - Psych Psych: Normal mood, Normal affect Results - Vitals Vitals: Vital Signs - 24 hr 10/30/23 10/31/23 10/31/23 23:41 00:00 00:30 Temperature 37.1 C Heart Rate 98 92 81 Respiratory 16 20 19 Rate Blood Pressure 192/123 H 168/104 H 159/99 H O2 Saturation 94 94 94 10/31/23 10/31/23 10/31/23 01:00 01:30 02:00 Temperature Heart Rate 86 80 83 Respiratory 15 20 20 Rate Blood Pressure 166/93 H 167/93 H 174/103 H O2 Saturation 95 94 95 10/31/23 10/31/23 10/31/23 02:30 03:00 03:30 Temperature Heart Rate 88 77 78 Respiratory 19 20 20 Rate Blood Pressure 188/107 H 175/107 H 163/107 H O2 Saturation 96 96 96 10/31/23 10/31/23 10/31/23 04:00 04:30 05:00 Temperature Heart Rate 88 71 71 Respiratory 17 19 18 Rate Blood Pressure 177/107 H 169/106 H 150/104 H O2 Saturation 100 95 95 10/31/23 10/31/23 10/31/23 05:30 06:00 06:30 Temperature Heart Rate 71 70 65 Respiratory 19 18 16 Rate Blood Pressure 154/90 H 142/102 H 129/84 H O2 Saturation 95 95 95 10/31/23 10/31/23 07:00 07:42 Temperature Heart Rate 64 73 Respiratory 17 20 Rate Blood Pressure 133/89 H 136/97 H O2 Saturation 97 96 Oxygen O2 Source Room air - EKG (time done) 2379 EKG releavant findings:: EKG personally interpreted by author of this note. Relevant findings are: Rate: Rate (enter#) (92) Rhythm: NSR [place]: Normal QRS: LVH Ischemia: Normal ST segments, Non specific changes Compare to prior EKG: Old EKG unavailable Computer interpretation: Agree with computer - Labs Labs: Laboratory Tests 10/30/23 10/30/23 10/31/23 23:57 23:57 02:12 WBC 6.2 RBC 4.81 Hgb 15.1 Hct 43.1 MCV 89.6 MCH 31.4 H MCHC 35.0 RDW 12.7 Plt Count 256 MPV 9.6 Neut # (Auto) 4.1 Lymph # (Auto) 1.5 [place] # (Auto) 0.5 Eos # (Auto) 0.0 Baso # (Auto) 0.1 Absolute Nucleated RBC 0.00 Nucleated RBC % 0.0 Sodium 137 Potassium 3.7 Chloride 97 L Carbon Dioxide 25 Anion Gap 15.0 H BUN 17 Creatinine 0.6 Estimated GFR (MDRD) 106 Glucose 165 H Calcium 10.3 Total Bilirubin 1.4 H AST 61 H ALT 68 H Alkaline Phosphatase 63 Troponin I High Sens 10.6 12.1 Total Protein 7.2 Albumin 4.7 Globulin 2.5 Albumin/Globulin Ratio 1.9 Lipase 11 - Rads (name of study) CT head Relevant Findings:: Final report received, See rad report (neg) PD Medical Decision Making - ED course Complexity details: reviewed results, re-evaluated patient, considered differential, d/w patient ED course: Patient was worked up with labs, EKG, and CT scan of the head. Her work-up, including serial troponins, was negative. The pt was observed for some hours in the ED, and began to slowly improve. She was able to converse upon re- evaluation, though responses were still somewhat slowed. She did not have any recollection of the events after receiving her medication en-route. Other than feeling a bit anxious, she did not have further sx, and reported her chest was feeling better. She did report being under some stress recently. We did discuss that the reason for her sx is unclear. Reaction to the morphine is the most likely consideration, though she was given a very small dose at 2 mg. It is possible that she had a conversion-type reaction also. The pt's work-up is negative, and she is much improved, and she is stable for d/c. She was observed in the ED until her could come and get her around 0800. We have discussed the usual indications for return. Departure - Departure Disposition: 01 Home, Self Care Clinical Impression: Chest pain Qualifiers: Chest pain type: unspecified Qualified Code(s): R07.9 - Chest pain, unspecified Adverse drug reaction Qualifiers: Encounter type: initial encounter Qualified Code(s): T50.905A - Adverse effect of unspecified drugs, medicaments and biological substances, initial encounter Condition: Stable Instructions: ED Chest Pain Atypical Unkn Cause, ED Drug React Adverse Other Comments: Your labs, EKG, and head CT all look good. We have checked 2 sets of cardiac enzymes for you and both were normal. It is not clear exactly what caused you to have the episode of altered mental status tonight. It may have been secondary to the morphine you were given and this may just be a medication that your body is very sensitive to. We can sometimes see reactions to extreme stress that can present this way as well, so is hard to say for sure. At this point in time, you are doing much better and there is nothing on examination or on your test to indicate an emergent condition at this point in time. Please follow-up with your primary doctor for further concerns. Forms: PCP List Discharge Date/Time: 10/31/23 07:45
[2023-10-30] MEDS: SODIUM CHLORIDE 0.9% 1,000 ML IV STA (23:50)
[2023-10-31 00:04] LABS: BASOPHILS # (AUTO) 0.1 10^3/uL (0.0-0.1); EOSINOPHILS % (AUTO) 0.5 %; HCT - HEMATOCRIT 43.1 % (37.0-47.0); HGB - HEMOGLOBIN 15.1 g/dL (12.0-16.0); LYMPHOCYTES # (AUTO) 1.5 10^3/uL (1.5-3.5); LYMPHOCYTES % (AUTO) 24.5 %; MEAN CORPUSCULAR HEMOGLOBIN 31.4 pg (27.0-31.0); MEAN CORPUSCULAR VOLUME 89.6 fL (81.0-99.0); MEAN PLATELET VOLUME 9.6 fL (7.9-10.8); MONOCYTES # (AUTO) 0.5 10^3/uL (0.0-1.0); MONOCYTES % (AUTO) 7.7 %; NEUTROPHILS # (AUTO) 4.1 10^3/uL (1.5-6.6); NEUTROPHILS % (AUTO) 66.1 %; PLT - PLATELET COUNT 256 10^3/uL (130-450); RED BLOOD COUNT 4.81 10^6/uL (4.20-5.40); RED CELL DISTRIBUTION WIDTH 12.7 % (12.0-15.0); WHITE BLOOD COUNT 6.2 x10^3/uL (4.8-10.8)
[2023-10-31 00:25] LABS: TROPONIN I HIGH SENSITIVITY 10.6 ng/L (2.3-14.8)
[2023-10-31 00:30] LABS: ALBUMIN 4.7 g/dL (3.2-5.5); ALBUMIN/GLOBULIN RATIO 1.9 (1.0-2.2); BILIRUBIN,TOTAL 1.4 mg/dL (0.2-1.0); CALCIUM 10.3 mg/dL (8.5-10.3); CREATININE 0.6 mg/dL (0.6-1.3); POTASSIUM 3.7 mmol/L (3.5-4.5); TOTAL PROTEIN 7.2 g/dL (6.4-8.9)
--- NOTE | 2023-10-31 01:24 | CT Report ---
PROCEDURE: Head WO INDICATIONS: aloc TECHNIQUE: Noncontrast 4.5 mm thick angled axial sections acquired from the foramen magnum to the vertex. For r adiation dose reduction, the following was used: automated exposure control, adjustment of mA and/or kV according to patient size. COMPARISON: None. FINDINGS: Image quality: Excellent. CSF spaces: Basal cisterns are patent. No extra-axial fluid collections. Ventricles are normal in size and shape. Brain: No midline shift. No intracranial masses or hemorrhage. Horta-white matter interface is norm al. Skull and face: Calvarium and visualized facial bones are intact, without suspicious lesions. Sinuses: Visualized sinuses and mastoids are clear. IMPRESSION: No acute intracranial pathology. Reviewed by: Yogesh Sykes MD on 10/31/2023 1:22 AM PDT Approved by: Yogesh Sykes MD on 10/31/2023 1:22 AM PDT Station ID: [id number]
[2023-10-31] MEDS: lisinopriL 20 MG TABLET PO SCH (04:12)
[2023-10-31] MEDS: ALPRAZolam 0.25 MG TABLET PO STA (04:12)
[2023-10-31 07:48] VITALS: BP 136/97; O2SAT 96
== END 2023-10-31 07:45 | disposition home or self-care (01) ==
LOC: EDUNIT# → ED 23:35
DX: R07.9 Chest pain, unspecified (principal); T50.905A Adverse effect of unspecified drugs, medicaments and biological substances, initial encounter; I10 Essential (primary) hypertension; Z79.899 Other long term (current) drug therapy
CPT/HCPCS: 36415; 70450; 80053; 83690; 84484; 85025; 93005; 99284; A9270

== ENCOUNTER 2023-11-03 17:34 | Emergency (ER) | payer BC ==
--- NOTE | 2023-11-03 18:27 | ED Physician Documentation ---
History of Present Illness - Stated complaint Stated Complaint: HIGH BP - Chief complaint Chief Complaint: Neuro - History obtained from History obtained from: Patient - Additonal information Additional information: 48-year-old woman with history of hypertension. She was on lisinopril at a dose of 10 mg a day, but is between doctors right now. She was seen for chest pain the other day and given his goal dose of lisinopril. The remainder of her workup was negative. When she came in the other day, she was given morphine by EMS and then became catatonic for 2 hours. She went for follow-up today and is having headaches, generally feeling ill and very anxious. She is undergoing a nasty divorce. Because of that her blood pressure is very high. She denies chest pain today. 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: Ovarian cysts : Kidney stones HEENT: None Psych: Anxiety Musculoskeletal: Osteoarthritis Derm: None - Past Surgical History Past Surgical History: Yes General: Cholecystectomy, Bowel surgery Ortho: Arthroscopic surgery /TOOLING ENGINEER: Tubal ligation, Hysterectomy - Present Medications Home Medications: Ambulatory Orders Medication Instructions Recorded Confirmed Lisinopril [Zestril] 10 mg PO DAILY #30 tablet 09/10/23 11/03/23 Atenolol [Tenormin] 50 mg PO DAILY #90 tablet 11/03/23 Lisinopril [Zestril] 10 mg PO DAILY #90 tablet 11/03/23 - Allergies Allergies/Adverse Reactions: Allergies Allergy/AdvReac Type Severity Reaction Status Date / Time coconut oil Allergy Severe Anaphylaxis Verified 11/03/23 17:51 Penicillins Allergy Severe ANAPHYLAXIS Verified 11/03/23 17:51 tramadol Allergy DIARRHEA Verified 11/03/23 17:51 promethazine HCl * AdvReac Severe Dizziness Verified 11/03/23 17:51 [From Phenergan] morphine AdvReac Unknown Verified 11/03/23 17:52 - Social History Does the pt smoke?: No Smoking Status: Never smoker Does the pt drink ETOH?: Yes Does the pt have substance abuse?: No - Immunizations Immunizations are current?: Yes - POLST Patient has POLST: No POLST Status: Full Code PD ED PE NORMAL - Vitals Vital signs reviewed: Yes - General General: Alert and oriented X 3, Other (Tearful, anxious, hypertensive and tachycardic) - HEENT HEENT: PERRL, EOMI - Neck Neck: Supple, no meningeal sign, No bony TTP - Cardiac Cardiac: RRR, No murmur - Respiratory Respiratory: No respiratory distress, Clear bilaterally - Abdomen Abdomen: Non tender - Neuro Neuro: Alert and oriented X 3, Normal speech - Psych Psych: Normal mood, Normal affect Results - Vitals Vitals: Vital Signs - 24 hr 11/03/23 11/03/23 11/03/23 17:46 18:45 19:30 Temperature 36.4 C L Heart Rate 87 80 96 Respiratory 17 15 20 Rate Blood Pressure 206/108 H 230/106 H 187/105 H O2 Saturation 100 98 96 11/03/23 11/03/23 19:48 19:58 Temperature Heart Rate 70 72 Respiratory 14 19 Rate Blood Pressure 173/96 H 173/96 H O2 Saturation 95 97 Oxygen O2 Source Room air - Labs Labs: Laboratory Tests 11/03/23 11/03/23 11/03/23 18:35 18:35 19:07 WBC 5.7 RBC 5.01 Hgb 15.4 Hct 45.6 MCV 91.0 MCH 30.7 MCHC 33.8 RDW 13.0 Plt Count 217 MPV 10.8 Neut # (Auto) 3.8 Lymph # (Auto) 1.4 L [place] # (Auto) 0.4 Eos # (Auto) 0.0 Baso # (Auto) 0.0 Absolute Nucleated RBC 0.00 Nucleated RBC % 0.0 VBG pH 7.431 H VBG pCO2 38.2 L VBG pO2 53.1 H VBG HCO3 24.8 VBG Total CO2 26.0 VBG O2 Saturation 89.3 H VBG Base Excess 0.8 Sodium 136 Potassium 3.6 Chloride 98 L Carbon Dioxide 27 Anion Gap 11.0 BUN 13 Creatinine 0.5 L Estimated GFR (MDRD) 131 Glucose 105 H Calcium 10.4 H Total Bilirubin 1.0 AST 54 H ALT 87 H Alkaline Phosphatase 75 Total Protein 7.5 Albumin 4.8 Globulin 2.7 Albumin/Globulin Ratio 1.8 PD Medical Decision Making - ED course ED course: She presents with elevated blood pressure, but she is having a panic attack and is supposed to be on lisinopril but does not have a PCP and ran out. After 1 mg of Ativan her heart rate normalizes, but her blood pressure is still modestly elevated in the range of 170/90. Review of her chart shows that on prior visits for unrelated issues her blood pressure has been in similar ranges suggesting this is kind of a chronic issue other than the panicky part of it. She was on lisinopril but suspect she will need more than just the lisinopril for blood pressure control and I am adding on a beta-jackeline for potentially its antianxiety effects as well. Departure - Departure Disposition: 01 Home, Self Care Clinical Impression: Hypertension Condition: Good Record reviewed to determine appropriate education?: Yes Instructions: ED Hypertension New Begin Tx, ED Diet Low Salt 2Gm Prescriptions: Atenolol [Tenormin] 50 mg PO DAILY #90 tablet Lisinopril [Zestril] 10 mg PO DAILY #90 tablet Comments: [facility] in [place]. In addition to medications for your blood pressure, you should also do a low-salt diet, stress reduction, and exercise. Looking back in your records it looks like your blood pressures always been fairly high, and I do not think just the lisinopril at the low-dose will be enough. As such I am also adding a beta- jackeline as that may be helpful to some extent with anxiety as well. Do your best to obtain primary care follow-up. I know it is difficult to find access to primary care physicians right now, but the [place] [facility] is excepting new patients. Return for new or worsening symptoms. Do not drive tonight. Forms: PCP List Discharge Date/Time: 11/03/23 19:58
[2023-11-03] MEDS: LORazepam 2 MG/ML VIAL IVP STA (18:44)
[2023-11-03] MEDS: lisinopriL 5 MG TABLET PO STA (18:44)
[2023-11-03 18:45] LABS: BASOPHILS % (AUTO) 0.7 %; EOSINOPHILS % (AUTO) 0.5 %; HCT - HEMATOCRIT 45.6 % (37.0-47.0); HGB - HEMOGLOBIN 15.4 g/dL (12.0-16.0); LYMPHOCYTES # (AUTO) 1.4 10^3/uL (1.5-3.5); LYMPHOCYTES % (AUTO) 24.6 %; MEAN CORPUSCULAR HEMOGLOBIN 30.7 pg (27.0-31.0); MEAN CORPUSCULAR HGB CONC 33.8 g/dL (32.0-36.0); MEAN PLATELET VOLUME 10.8 fL (7.9-10.8); MONOCYTES # (AUTO) 0.4 10^3/uL (0.0-1.0); MONOCYTES % (AUTO) 7.1 %; NEUTROPHILS # (AUTO) 3.8 10^3/uL (1.5-6.6); NEUTROPHILS % (AUTO) 66.9 %; PLT - PLATELET COUNT 217 10^3/uL (130-450); RED BLOOD COUNT 5.01 10^6/uL (4.20-5.40); VBG BASE EXCESS 0.8 mmol/L (-2 - +2); VBG HCO3 24.8 mmol/L (23-28); VBG OXYGEN SATURATION 89.3 % (60-80); VBG PCO2 38.2 mmHg (41-51); VBG PH 7.431 (7.31-7.41); VBG PO2 53.1 mmHg (25-47); WHITE BLOOD COUNT 5.7 x10^3/uL (4.8-10.8)
[2023-11-03] MEDS: METOPROLOL 5 MG/5 ML VIAL IVP STA (19:35)
[2023-11-03 19:40] LABS: ALBUMIN 4.8 g/dL (3.2-5.5); ALBUMIN/GLOBULIN RATIO 1.8 (1.0-2.2); CALCIUM 10.4 mg/dL (8.5-10.3); CREATININE 0.5 mg/dL (0.6-1.3); POTASSIUM 3.6 mmol/L (3.5-4.5); TOTAL PROTEIN 7.5 g/dL (6.4-8.9)
[2023-11-03 19:58] VITALS: BP 173/96
[2023-11-03 20:07] VITALS: O2SAT 97
== END 2023-11-03 19:58 | disposition home or self-care (01) ==
LOC: ED 17:34
DX: I10 Essential (primary) hypertension (principal); Z87.442 Personal history of urinary calculi; Z79.899 Other long term (current) drug therapy
CPT/HCPCS: 36415; 80053; 82803; 85025; 96374; 96375; 99283; 99284; A9270; J2060

== ENCOUNTER 2024-04-23 09:29 | Observation (INO) ==
--- NOTE | 2024-04-23 09:41 | ED Physician Documentation ---
PD HPI MHE Stated complaint Stated Complaint: MHE Chief complaint Chief Complaint: MHE History obtained from History obtained from: Patient History of Present Illness Primary symptom: Other (Alcohol use disorder and would like to stop drinking); No Suicidal ideation Timing - onset: How many weeks ago (She states she had been sober for 6 months and then resumed drinking about a month ago pretty heavily and consistently and more so the last 2 weeks. Would like to stop drinking.) Contributing factors: Substance abuse - ETOH Recently seen: No Clinic or Emergency Dept Meds/Allgy Home Medications Ambulatory Orders Medication Instructions Recorded Confirmed atenolol 50 mg tablet 50 mg PO DAILY #30 tabs 04/23/24 lisinopril 10 mg tablet 10 mg PO DAILY #30 tabs 04/23/24 lorazepam 1 mg tablet (Ativan) 1 mg PO TID PRN alcohol withdrawal 04/23/24 #20 tabs ondansetron HCl 4 mg tablet 4 mg PO Q8H PRN nausea and 04/23/24 vomiting #20 tabs phenobarbital 30 mg tablet 30 mg PO BID alcohol withdrawal #9 04/23/24 tabs Allergies Allergies Allergy/AdvReac Type Severity Reaction Status Date / Time coconut oil Allergy Severe Anaphylaxis Verified 04/23/24 09:37 Penicillins Allergy Severe ANAPHYLAXIS Verified 04/23/24 09:37 tramadol Allergy DIARRHEA Verified 04/23/24 09:37 promethazine HCl * (From AdvReac Severe Dizziness Verified 04/23/24 09:37 Phenergan) morphine AdvReac Unknown Verified 04/23/24 09:37 [facility] Medical History Medical History (Updated 04/23/24 @ 12:50 by Bernardo Arndt MD) Hypertension Social History Social History (Updated 04/23/24 @ 09:50 by K[place]a [place], SHAYNA, BSN) Smoking Status: Never smoker Do you dip or chew tobacco?: No Do you vape?: No Patient requests smoking cessation consult: No Initiate information on smoking cessation: No Living arrangement: At home Living Condition: Alone Relationship: Do you feel safe in your home environment?: Yes History of Abuse: No Frequency: Daily Substance Use: denies use POLST Patient has POLST: No POLST Status: Full Code Exam Constitutional normal general appearance and average body habitus HENMT normocephalic and head/scalp atraumatic Eyes PERRL and EOMs intact bilaterally Lymph no lymphadenopathy noted Respiratory breath sounds equal bilaterally and normal respiratory effort Cardiovascular normal heart rate noted, regular rhythm noted and no edema Gastrointestinal abdomen soft to palpation and nontender to palpation Extremities no tenderness Neurology no movement abnormality noted Psychiatry mental status abnormal (mildly somnolent and confused but still oriented. ) Skin skin color normal Results Vitals Vitals: Vital Signs - 24 hr 04/23/24 09:32 04/23/24 10:21 04/23/24 11:38 Temperature 36.8 C Temperature Source Temporal Artery Scan Pulse Rate 111 H 95 H 80 Respiratory Rate 14 15 15 Blood Pressure 231/142 H 206/136 H 185/116 H O2 Saturation 96 97 95 O2 Source Room air Room air Room air Pain Intensity 0 Oxygen O2 Source Room air Labs Labs: Laboratory Tests 04/23/24 04/23/24 04/23/24 10:22 10:22 10:51 WBC 4.4 L RBC 5.25 Hgb 16.4 H Hct 48.2 H MCV 91.8 MCH 31.2 H MCHC 34.0 RDW 13.1 Plt Count 237 MPV 10.3 Neut # (Auto) 3.0 Lymph # (Auto) 1.0 L [place] # (Auto) 0.3 Eos # (Auto) 0.1 Baso # (Auto) 0.1 Absolute Nucleated RBC 0.00 Nucleated RBC % 0.0 Sodium 134 L Potassium 3.7 Chloride 95 L Carbon Dioxide 20 L Anion Gap 19.0 H BUN 10 Creatinine 0.5 L Estimated GFR (MDRD) 131 Glucose 92 Calcium 9.4 Magnesium 1.8 Total Bilirubin 1.1 H AST 55 H ALT 50 Alkaline Phosphatase 79 Total Creatine Kinase 97 Total Protein 7.6 Albumin 5.0 Globulin 2.6 Albumin/Globulin Ratio 1.9 Lipase 16 TSH 1.87 Urine Color DARK YELLOW Urine Clarity CLEAR Urine pH 6.5 Ur Specific [place] 1.025 Urine Protein 100 H Urine Glucose (UA) NEGATIVE Urine Ketones 40 H Urine Occult Blood SMALL H Urine Nitrite NEGATIVE Urine Bilirubin NEGATIVE Urine Urobilinogen 1 (NORMAL) Ur Leukocyte Esterase NEGATIVE Urine RBC 6-10 H Urine WBC 0-3 Ur Squamous Epith Cells MANY Squamous H Urine Bacteria Many H Urine Casts >50 Hyaline Casts >50 Granular Casts Urine Mucus Marked Strands Ur Microscopic Review INDICATED Urine Culture Comments NOT INDICATED Salicylates < 1.5 Urine Opiates Screen NEGATIVE Ur Buprenorphine Scrn NEGATIVE Ur Oxycodone Screen NEGATIVE Urine Methadone Screen NEGATIVE Acetaminophen < 0.1 Ur Barbiturates Screen NEGATIVE Ur Tricyclics Screen NEGATIVE Ur Phencyclidine Scrn NEGATIVE Ur Amphetamine Screen NEGATIVE U Methamphetamines Scrn NEGATIVE U Benzodiazepines Scrn NEGATIVE Urine Cocaine Screen NEGATIVE U Cannabinoids Screen NEGATIVE Ur Drug Screen Comment CUTOFF CONC BELOW: Ethyl Alcohol 04/23/24 10:55 WBC RBC Hgb Hct MCV MCH MCHC RDW Plt Count MPV Neut # (Auto) Lymph # (Auto) [place] # (Auto) Eos # (Auto) Baso # (Auto) Absolute Nucleated RBC Nucleated RBC % Sodium Potassium Chloride Carbon Dioxide Anion Gap BUN Creatinine Estimated GFR (MDRD) Glucose Calcium Magnesium Total Bilirubin AST ALT Alkaline Phosphatase Total Creatine Kinase Total Protein Albumin Globulin Albumin/Globulin Ratio Lipase TSH Urine Color Urine Clarity Urine pH Ur Specific [place] Urine Protein Urine Glucose (UA) Urine Ketones Urine Occult Blood Urine Nitrite Urine Bilirubin Urine Urobilinogen Ur Leukocyte Esterase Urine RBC Urine WBC Ur Squamous Epith Cells Urine Bacteria Urine Casts Urine Mucus Ur Microscopic Review Urine Culture Comments Salicylates Urine Opiates Screen Ur Buprenorphine Scrn Ur Oxycodone Screen Urine Methadone Screen Acetaminophen Ur Barbiturates Screen Ur Tricyclics Screen Ur Phencyclidine Scrn Ur Amphetamine Screen U Methamphetamines Scrn U Benzodiazepines Scrn Urine Cocaine Screen U Cannabinoids Screen Ur Drug Screen Comment Ethyl Alcohol 92.1 PD Medical Decision Making ED course Complexity details: reviewed results, re-evaluated patient (Blood pressure was elevated initially. She was given her usual oral medications which she states she had not taken for the last 3 to 4 days. She was started to have some with drawal symptoms and given some phenobarbital and Ativan. Prescriptions will be given.), considered differential (Recent excess alcohol use for the last couple of weeks or so. Prior history of alcoholism but sober for the last 6 months before that. Wanting to stop alcohol use. Considering detox. Recently healthy otherwise.) and d/w home performance consultant (Social work talked with the patient. She declined detox facility today. I will provide medication to help with withdrawal type symptoms. She is less somnolent at this point. Alcohol level was actually only 92. She denies other drugs.) Discharge Plan Discharge Patient Disposition: 01 Home, Self Care Condition: Stable Clinical Impression: Alcohol withdrawal, Alcohol use disorder, Hypertension Prescriptions: New phenobarbital 30 mg tablet 30 mg PO BID Qty: 9 0RF Rx Instructions: 1 tablet twice daily for 3 days then once daily for 3 days. lorazepam [Ativan] 1 mg tablet 1 mg PO TID PRN (Reason: alcohol withdrawal) Qty: 20 0RF ondansetron HCl 4 mg tablet 4 mg PO Q8H PRN (Reason: nausea and vomiting) Qty: 20 0RF lisinopril 10 mg tablet 10 mg PO DAILY Qty: 30 2RF atenolol 50 mg tablet 50 mg PO DAILY Qty: 30 2RF Activity Restrictions/Additional Instructions: Of course avoid alcohol. To help with your withdrawal symptoms, I commonly prescribe a combination of long-acting and short acting medications to help with your symptoms. First is phenobarbital twice daily for 3 days and then once daily for 3 days. Since is hard to know how much symptoms he will be having per se, I would also add then lorazepam/Ativan 1-2 every 6 hours or so if needed for withdrawal symptoms. Taper down the amount used as able with a goal of not needing supportive medicines after 4 to 6 days. Ondansetron if needed for nausea. Stay well-hydrated. Regular diet. Seek help for the psychological component of this. AA meetings, counseling, other support are helpful. Our social work provided you with some list of resources. Return to the ER if needed. You can also independently call and see if there are beds available at some of the detox centers such as [facility] and [place]. I sent your prescriptions to the [facility] in [place]. Print Language: Greek Patient Instructions: ED Withdrawal Alcohol Stand Alone Forms: PCP List
[2024-04-23 10:33] LABS: BASOPHILS # (AUTO) 0.1 10^3/uL (0.0-0.1); BASOPHILS % (AUTO) 1.4 %; EOSINOPHILS # (AUTO) 0.1 10^3/uL (0.0-0.7); EOSINOPHILS % (AUTO) 1.1 %; HCT - HEMATOCRIT 48.2 % (37.0-47.0); HGB - HEMOGLOBIN 16.4 g/dL (12.0-16.0); LYMPHOCYTES % (AUTO) 22.4 %; MEAN CORPUSCULAR HEMOGLOBIN 31.2 pg (27.0-31.0); MEAN CORPUSCULAR VOLUME 91.8 fL (81.0-99.0); MEAN PLATELET VOLUME 10.3 fL (7.9-10.8); MONOCYTES # (AUTO) 0.3 10^3/uL (0.0-1.0); MONOCYTES % (AUTO) 6.1 %; PLT - PLATELET COUNT 237 10^3/uL (130-450); RED BLOOD COUNT 5.25 10^6/uL (4.20-5.40); RED CELL DISTRIBUTION WIDTH 13.1 % (12.0-15.0); WHITE BLOOD COUNT 4.4 x10^3/uL (4.8-10.8)
[2024-04-23] MEDS: atenoloL 25 MG TABLET PO STA ×2 (10:48→10:53)
[2024-04-23] MEDS: lisinopriL 5 MG TABLET PO STA (10:53)
[2024-04-23 11:12] LABS: CK- CREATINE KINASE 97 IU/L (30-223); LIPASE 16 U/L (11-82); MAGNESIUM 1.8 mg/dL (1.7-2.3)
[2024-04-23 11:20] LABS: BILIRUBIN,URINE NEGATIVE (NEGATIVE); GLUCOSE, URINE (UA) NEGATIVE (NEGATIVE); KETONES,URINE (UA) 40 mg/dL (NEGATIVE); LEUKOCYTE ESTERASE, URINE NEGATIVE (NEGATIVE); NITRITE,URINE NEGATIVE (NEGATIVE); OCCULT BLOOD,URINE SMALL (NEGATIVE); PH,URINE 6.5 PH (5.0-7.5); PROTEIN,URINE 100 mg/dL (NEGATIVE); UROBILINOGEN,URINE 1 (NORMAL) E.U./dL (NORMAL)
[2024-04-23 11:27] LABS: CLARITY,URINE CLEAR (CLEAR)
[2024-04-23 11:28] LABS: THYROID STIMULATING HORMONE 1.87 uIU/mL (0.34-5.60)
[2024-04-23 11:35] LABS: AMPHETAMINE SCREEN,URINE NEGATIVE (NEGATIVE); BARBITURATE SCREEN,UR NEGATIVE (NEGATIVE); BENZODIAZEPINES SCREEN, URINE NEGATIVE (NEGATIVE); BUPRENORPHINE SCREEN, URINE NEGATIVE (NEGATIVE); COCAINE SCREEN URINE NEGATIVE (NEGATIVE); METHADONE SCREEN, URINE NEGATIVE (NEGATIVE); METHAMPHETAMINES SCREEN, URINE NEGATIVE (NEGATIVE); OPIATE SCREEN, URINE NEGATIVE (NEGATIVE); OXYCODONE SCREEN, URINE NEGATIVE (NEGATIVE); THC CANNABINOID SCREEN, URINE NEGATIVE (NEGATIVE); TRICYCLIC ANTIDEPRESSANT,URINE NEGATIVE (NEGATIVE)
[2024-04-23 11:35] LABS: ACETAMINOPHEN < 0.1 ug/mL; ALBUMIN/GLOBULIN RATIO 1.9 (1.0-2.2); ALKALINE PHOSPHATASE 79 IU/L (42-121); ALT ALANINE AMINOTRANSFERASE 50 IU/L (10-60); AST ASPARTATE AMINOTRANSFERASE 55 IU/L (10-42); BILIRUBIN,TOTAL 1.1 mg/dL (0.2-1.0); BUN - BLOOD UREA NITROGEN 10 mg/dL (6-20); CALCIUM 9.4 mg/dL (8.5-10.3); CARBON DIOXIDE - CO2 20 mmol/L (21-32); CHLORIDE 95 mmol/L (101-111); CREATININE 0.5 mg/dL (0.6-1.3); GFR - MDRD 131 (>89); GLUCOSE 92 mg/dL (74-104); POTASSIUM 3.7 mmol/L (3.5-4.5); SALICYLATE < 1.5 mg/dL; SODIUM 134 mmol/L (135-145); TOTAL PROTEIN 7.6 g/dL (6.4-8.9)
[2024-04-23] MEDS: SODIUM CHLORIDE 0.9% 1,000 ML IV STA (11:43)
[2024-04-23 11:50] LABS: BACTERIA,URINE Many /HPF (None Seen); MUCUS,URINE Marked Strands; SQUAMOUS EPITHELIAL CELL,UR MANY Squamous (<= Few); WBC,URINE 0-3 /HPF (0-5)
[2024-04-23] MEDS: LORazepam 2 MG/ML VIAL IVP STA ×2 (12:09→15:21)
[2024-04-23] MEDS: POTASSIUM BICARB 25 MEQ TABLET PO STA (12:09)
[2024-04-23] MEDS: MAGNESIUM OXIDE 400 MG TABLET PO STA (12:09)
[2024-04-23] MEDS: PHENobarbital 65 MG/ML VIAL IV STA ×2 (13:08→15:21)
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
[2024-04-23] MEDS: chlordiazePOXIDE 25 MG CAPSULE PO SCH (16:10)
[2024-04-23] MEDS ORDERED: ONDANSETRON ODT 4 MG TABLET TL PRN (16:23)
[2024-04-23] MEDS ORDERED: IBUPROFEN 400 MG TABLET PO PRN (16:23)
[2024-04-23] MEDS: LORazepam 1 MG TABLET PO PRN (16:44)
--- NOTE | 2024-04-23 17:05 | PHARMACY PROGRESS NOTE ---
Best Possible Medication History Admit Date and Time: 04/23/24 496003 Home Medications Medication Instructions Recorded Confirmed Type atenolol 50 mg tablet 50 mg PO DAILY #30 tabs 04/23/24 Rx lisinopril 10 mg tablet 10 mg PO DAILY #30 tabs 04/23/24 Rx lorazepam 1 mg tablet (Ativan) 1 mg PO TID PRN alcohol withdrawal 04/23/24 Rx #20 tabs ondansetron HCl 4 mg tablet 4 mg PO Q8H PRN nausea and 04/23/24 Rx vomiting #20 tabs phenobarbital 30 mg tablet 30 mg PO BID alcohol withdrawal #9 04/23/24 Rx tabs Processed by: Pharmacy (Medication Reconciliation completed by Director BiostatisticsJúnior) Medications reviewed in ED?: No Medication History completed: Yes Patient Interview: Completed (Patient not currently on any medications outpatient. Medications reflecting on profile are new prescriptions that are not filled yet) Secondary Source(s): Insurance records [facility] Statement: As the person ultimately responsible for medication therapy, providers are able to order a medication from an existing home medication list in [facility] via the "Reconcile Routine" prior to Confirmation of that medication by child support agent. Such practice is discouraged except when the physician, in their clinical judgment, deems that a medical need exists for a medication without regard to previous use.
[2024-04-23] MEDS: HEPARIN 5,000 UNIT/ML VIAL SUBQ SCH (21:30)
[2024-04-23] MEDS: SODIUM CHLORIDE FLUSH 0.9% 10 ML SYRINGE IVP SCH (21:31)
--- NOTE | 2024-04-23 22:34 | PROVIDER PROGRESS NOTE ---
Drop Wire Aligner Note Drop Wire Aligner Note Drop Wire Aligner Note: RN paged " Pt admitted OBS for ETOH withdrawal. Received 130mg phenobarbital in ED between 8426-3528, along with 2mg ativan in ED and 25mg librium. Since arrival on unit, has received 8mg ativan and 25mg librium. 6mg of ativan since 1999, score now increasing and most recent CIWA 18 approximately 30 mins after 2mg ativan at 2130. Reports increasing anxiety, agitation, visual and auditory hallucinations, sensitivity to light and sound, and mild headache rated 3/10. May require ICU transfer if score reaches 20 per policy. Last drink reported 0500 04/23. ETOH 92.1 at 1055 04/23." spoke to RN regarding patient's safety and RN floor comfort. patient is getting ativan q1hr and continues to be agitated/upregulated. A: alcohol withdraw with delirium P: transfer to ICU. add additional coverage including gabapentin and phenobarb. Brendan Enamorado
[2024-04-24] MEDS: diazePAM INJ 5 MG/ML SYRINGE IVP SCH (00:01)
[2024-04-24] MEDS: GABAPENTIN 300 MG CAPSULE PO SCH (00:01)
[2024-04-24 04:49] LABS: HCT - HEMATOCRIT 42.5 % (37.0-47.0); HGB - HEMOGLOBIN 14.3 g/dL (12.0-16.0); MEAN CORPUSCULAR HEMOGLOBIN 31.7 pg (27.0-31.0); MEAN CORPUSCULAR HGB CONC 33.6 g/dL (32.0-36.0); MEAN CORPUSCULAR VOLUME 94.2 fL (81.0-99.0); RED BLOOD COUNT 4.51 10^6/uL (4.20-5.40); RED CELL DISTRIBUTION WIDTH 12.9 % (12.0-15.0); WHITE BLOOD COUNT 3.7 x10^3/uL (4.8-10.8)
[2024-04-24 04:50] LABS: BASOPHILS % (AUTO) 1.1 %; EOSINOPHILS # (AUTO) 0.1 10^3/uL (0.0-0.7); EOSINOPHILS % (AUTO) 3.2 %; LYMPHOCYTES # (AUTO) 1.7 10^3/uL (1.5-3.5); LYMPHOCYTES % (AUTO) 44.5 %; MEAN PLATELET VOLUME 10.2 fL (7.9-10.8); MONOCYTES # (AUTO) 0.3 10^3/uL (0.0-1.0); NEUTROPHILS # (AUTO) 1.6 10^3/uL (1.5-6.6); NEUTROPHILS % (AUTO) 43.9 %; PLT - PLATELET COUNT 180 10^3/uL (130-450)
[2024-04-24 05:01] LABS: CALCIUM 8.7 mg/dL (8.5-10.3); CREATININE 0.5 mg/dL (0.6-1.3); POTASSIUM 3.4 mmol/L (3.5-4.5)
[2024-04-24] MEDS: SODIUM CHLORIDE FLUSH 0.9% 10 ML SYRINGE IVP PRN (06:01)
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
[2024-04-24] MEDS: atenoloL 25 MG TABLET PO SCH (11:25)
[2024-04-24] MEDS: POTASSIUM CHLORIDE 20 MEQ TABLET PO ONE (11:25)
[2024-04-24] MEDS: lisinopriL 5 MG TABLET PO SCH (11:25)
[2024-04-24] MEDS: THIAMINE 100 MG TABLET PO SCH (11:26)
[2024-04-24] MEDS: PRENATAL VITAMIN TABLET PO SCH (11:26)
[2024-04-25 04:36] LABS: BASOPHILS % (AUTO) 0.8 %; EOSINOPHILS # (AUTO) 0.1 10^3/uL (0.0-0.7); EOSINOPHILS % (AUTO) 2.9 %; LYMPHOCYTES # (AUTO) 1.1 10^3/uL (1.5-3.5); LYMPHOCYTES % (AUTO) 28.6 %; MEAN CORPUSCULAR HEMOGLOBIN 31.8 pg (27.0-31.0); MEAN CORPUSCULAR HGB CONC 33.3 g/dL (32.0-36.0); MEAN CORPUSCULAR VOLUME 95.5 fL (81.0-99.0); MEAN PLATELET VOLUME 10.2 fL (7.9-10.8); MONOCYTES # (AUTO) 0.2 10^3/uL (0.0-1.0); MONOCYTES % (AUTO) 5.5 %; NEUTROPHILS # (AUTO) 2.4 10^3/uL (1.5-6.6); NEUTROPHILS % (AUTO) 61.9 %; PLT - PLATELET COUNT 136 10^3/uL (130-450); RED CELL DISTRIBUTION WIDTH 12.8 % (12.0-15.0); WHITE BLOOD COUNT 3.8 x10^3/uL (4.8-10.8)
[2024-04-25 04:50] LABS: CALCIUM 9.3 mg/dL (8.5-10.3); CREATININE 0.5 mg/dL (0.6-1.3); POTASSIUM 3.6 mmol/L (3.5-4.5)
--- NOTE | 2024-04-25 08:40 | PROVIDER PROGRESS NOTE ---
Subjective Subjective Subjective: Today, patient is pretty sleepy, but she states that she feels better. She does endorse drinking up to 5-6 bottles of [place] prior to coming in, and then feeling shaky. She denies any nausea, vomiting, and is eating well. Although she is sleepy this morning, per nurse, she was able to walk the halls and do a few rounds yesterday. Of note, she was changed from ICU to MedSurg status yesterday, but there are no beds available. Current Medications Current Medications Current Medications: Current Medications Generic Name Dose Route Start Last Admin Trade Name Freq PRN Reason Stop Dose Admin Acetaminophen 650 mg 04/23/24 16:23 Acetaminophen 325 Mg Tablet PO Q4HR PRN Pain 1 to 4, or Fever Atenolol 50 mg 04/24/24 09:00 04/24/24 11:25 Atenolol 25 Mg Tablet PO Not Given DAILY ASHWINI Chlordiazepoxide HCl 25 mg 04/25/24 14:00 Chlordiazepoxide 25 Mg Capsule PO Q8HR ASHWINI Gabapentin 300 mg 04/23/24 23:00 04/25/24 06:04 Gabapentin 300 Mg Capsule PO 300 mg TID ASHWINI Administration Heparin Sodium (Porcine) 5,000 unit 04/23/24 21:00 04/24/24 21:36 Heparin 5,000 Unit/Ml Vial SUBQ 5,000 unit BID ASHWINI Administration Ibuprofen 400 mg 04/23/24 16:23 Ibuprofen 400 Mg Tablet PO Q4HR PRN Pain 1 to 4 Lisinopril 10 mg 04/24/24 09:00 04/24/24 11:25 Lisinopril 5 Mg Tablet PO Not Given DAILY ASHWINI Lorazepam 2 mg 04/23/24 16:23 04/24/24 20:10 Lorazepam 1 Mg Tablet PO 2 mg Q1H PRN Administration CIWA > 8 Protocol Ondansetron HCl 4 mg 04/23/24 16:23 Ondansetron Odt 4 Mg Tablet TL Q6HR PRN Nausea / Vomiting Multivit/Folic Acid/Iron 1 tab 04/24/24 09:00 04/24/24 11:26 Vitamin Tablet PO Not Given DAILY ASHWINI Sodium Chloride 10 ml 04/23/24 16:23 04/24/24 06:01 Sodium Chloride Flush 0.9% 10 Ml Syringe IVP 10 ml PRN PRN Administration NEEDED PER PROVIDER ORDERS Sodium Chloride 10 ml 04/23/24 17:00 04/25/24 04:30 Sodium Chloride Flush 0.9% 10 Ml Syringe IVP 10 ml 0100,0900,1700 ASHWINI Administration Thiamine HCl 100 mg 04/24/24 09:00 04/24/24 11:26 Thiamine 100 Mg Tablet PO 100 mg DAILY ASHWINI Administration Objective Vital Signs/Intake & Output Reviewed Vital Signs: Yes Vital Signs: Vital Signs x48h Temp Pulse Resp BP Pulse Ox 04/25/24 04:37 98.1 F 04/25/24 04:00 88 24 129/90 94 Intake & Output: Intake & Output 04/23/24 04/24/24 04/25/24 04/26/24 05:59 05:59 05:59 05:59 Intake Total 1650 / 1650 800 / 800 200 / 200 Output Total 275 / 275 1350 / 1350 Balance 1375 / 1375 -550 / -550 200 / 200 Weight (kg) 77.5 kg Objective General Appearance: positive No acute distress and Lethargic; negative Anxious Eyes Bilateral: positive Normal inspection, PERRL and EOMI ENT: positive ENT inspection nml, Pharynx nml and No signs of dehydration Neck: positive Nml inspection, Thyroid nml and No JVD Respiratory: positive Chest non-tender, No respiratory distress and Breath sounds nml; negative Wheezes, Rales or Rhonchi Cardiovascular: positive Regular rate & rhythm, No murmur and No gallop Abdomen: positive Non-tender and No distention; negative Tenderness, Guarding, Rebound, Hepatomegaly, Splenomegaly or Mass Back: positive Nml inspection; negative CVA tenderness (R) or CVA tenderness (L) Skin: positive Color nml, No rash, Warm, Dry and Pallor Extremities: positive Non-tender and No pedal edema Neurologic/Psychiatric: positive Oriented x3 and Other (bilateral tremors noted in upper extremities ) Lab Results 04/25/24 04:30 04/25/24 04:30 Other Labs: Lab Results x24hrs 04/25/24 Range/Units 04:30 WBC 3.8 L (4.8-10.8) x10^3/uL RBC 4.40 (4.20-5.40) 10^6/uL Hgb 14.0 (12.0-16.0) g/dL Hct 42.0 (37.0-47.0) % MCV 95.5 (81.0-99.0) fL MCH 31.8 H (27.0-31.0) pg MCHC 33.3 (32.0-36.0) g/dL RDW 12.8 (12.0-15.0) % Plt Count 136 (130-450) 10^3/uL MPV 10.2 (7.9-10.8) fL Neut # (Auto) 2.4 (1.5-6.6) 10^3/uL Lymph # (Auto) 1.1 L (1.5-3.5) 10^3/uL [place] # (Auto) 0.2 (0.0-1.0) 10^3/uL Eos # (Auto) 0.1 (0.0-0.7) 10^3/uL Baso # (Auto) 0.0 (0.0-0.1) 10^3/uL Absolute Nucleated RBC 0.00 x10^3/uL Nucleated RBC % 0.0 /100WBC Sodium 136 (135-145) mmol/L Potassium 3.6 (3.5-4.5) mmol/L Chloride 102 (101-111) mmol/L Carbon Dioxide 29 (21-32) mmol/L Anion Gap 5.0 L (6-13) BUN 12 (6-20) mg/dL Creatinine 0.5 L (0.6-1.3) mg/dL Estimated GFR (MDRD) 131 (>89) Glucose 132 H (74-104) mg/dL Calcium 9.3 (8.5-10.3) mg/dL Assessment/Plan Problem List (1) Alcohol withdrawal: Impression: Patient presented in acute alcohol withdrawal. CIWA score on admission was 20, positive for anxiety, agitation, nausea/vomiting, tremors. She was then placed on as needed Ativan, scheduled Valium and Librium. Valium was stopped yesterday. Today, with clinical improvement, librium was decreased from 25 mg every 6 hours to every 12 hours. Continue gabapentin for cravings. Continue Ativan as needed; last dose was given yesterday evening around 10 PM. Continue vitamin, which includes folic acid. Continue thiamine. alley worker did speak with the patient as well, and provided resources about detox centers, rehab, counselors, mobile crisis out reach team's, as well as a safety plan. Qualifiers: Complication of substance-induced condition: with unspecified complication Qualified Code(s): F10.939 - Alcohol use, unspecified with withdrawal, unspecified (2) Hypertension: Impression: Blood pressure now well-controlled on lisinopril 10 mg daily, atenolol 50 mg daily. Continue to monitor. Qualifiers: Hypertension type: primary hypertension Qualified Code(s): I10 - Essential (primary) hypertension (3) Alcohol use disorder: Impression: Many traumas in her life including of her mother, estrangement of children, several marriages with being , current divorce. Continue outpatient management, social work did provide these resources. Continue to follow-up with primary care physician. Will continue vitamin and thiamine on discharge.
[2024-04-25] MEDS ORDERED: chlordiazePOXIDE 25 MG CAPSULE PO SCH (14:00)
[2024-04-25] MEDS: ACETAMINOPHEN 325 MG TABLET PO PRN (20:00)
[2024-04-25] MEDS: chlordiazePOXIDE 25 MG CAPSULE PO SCH (21:14)
[2024-04-26 04:30] LABS: HGB - HEMOGLOBIN 13.6 g/dL (12.0-16.0); MEAN CORPUSCULAR HEMOGLOBIN 31.6 pg (27.0-31.0); MEAN CORPUSCULAR HGB CONC 33.2 g/dL (32.0-36.0); MEAN CORPUSCULAR VOLUME 95.3 fL (81.0-99.0); MEAN PLATELET VOLUME 10.4 fL (7.9-10.8); RED BLOOD COUNT 4.3 10^6/uL (4.20-5.40); RED CELL DISTRIBUTION WIDTH 12.7 % (12.0-15.0); WHITE BLOOD COUNT 4.6 x10^3/uL (4.8-10.8)
[2024-04-26 05:11] LABS: CALCIUM 8.7 mg/dL (8.5-10.3); CREATININE 0.5 mg/dL (0.6-1.3); POTASSIUM 3.5 mmol/L (3.5-4.5)
--- NOTE | 2024-04-26 07:52 | Discharge Summary ---
"Discharge Summary Admit Date: 04/23/24 Discharge Date: 04/26/24 Discharging Provider: Dr. Maria M Alcantara Code Status: Attempt Resuscitation DIAGNOSES Admission Diagnoses: Alcohol withdrawal Hypertension Discharge Diagnoses with Status of Each Condition: Alcohol withdrawalresolved. CIWA score admission was around 20, now is resolved. Was requiring as needed Ativan and scheduled Valium and Librium, all off now. Spoke with patient about starting naltrexone for alcohol cravings, and she is interested in this. Will prescribe on discharge. Will continue with vitamins, thiamine. Hypertensioncontinue home lisinopril and atenolol. Alcohol use disordercontinue outpatient management with social work, counseling, primary care physician. HPI History of Present Illness: Arian Garcia: 49-year-old female who presents to the emergency department today complaining that she has been drinking too much and wants to stop drinking. She has a history of alcoholism. Had been sober for 6 months until about 2 weeks ago. Over the last 4 days she has drank about 1/5 and a half alcohol per day. She states that she wants to stop drinking. In the emergency department she has experienced symptoms of tremulousness sweating as well as elevated heart rate. She has been treated with Ativan 1 mg IV push twice as well as 2 doses of phenobarbital. She has not improved with these medications and we will not be able to detox from alcohol in the outpatient environment. She has past medical history of laparoscopic cholecystectomy. She also has a history of hypertension. She is post to be taking atenolol 50 mg a day lisinopril 10 mg a day she states she has been off of these medications for several months now. She is recently . She lives alone with her 2 dogs. She works as a [employer] in this institution. She denies tobacco use. She denies use of other illicit substances. CONSULTS | PROCEDURES Consultations: Social work HOSPITAL COURSE Hospital Course: Patient is a 49-year-old female with a history of alcohol use who presented due to alcohol withdrawal. She was sober for 6 months until about 2 weeks ago prior to admission; since then, she has been having 1/5-1/2 of bottle of alcohol a day. During her stay, she is admitted to the ICU for high CIWA scores of 20. She required phenobarbital, Ativan, scheduled Valium, scheduled Librium. This was eventually weaned down. Her withdrawal symptoms resolved, and she was deemed suitable for discharge home. Social work did give her some options about recovery. She was interested in FMLA leave so she can go stay with her daughter in [place] to maintain her sobriety. She will be discharged home on naltrexone. ALLERGIES Allergies Allergy/AdvReac Type Severity Reaction Status Date / Time coconut oil Allergy Severe Anaphylaxis Verified 04/23/24 09:37 Penicillins Allergy Severe ANAPHYLAXIS Verified 04/23/24 09:37 tramadol Allergy DIARRHEA Verified 04/23/24 09:37 promethazine HCl * (From AdvReac Severe Dizziness Verified 04/23/24 09:37 Phenergan) morphine AdvReac Unknown Verified 04/23/24 09:37 MEDICATIONS Ambulatory Orders Medication Instructions Recorded Confirmed atenolol 25 mg tablet 50 mg (2 x 25 mg) PO DAILY #30 tabs 04/26/24 lisinopril 5 mg tablet 10 mg (2 x 5 mg) PO DAILY #60 tabs 04/26/24 naltrexone 50 mg tablet 50 mg PO DAILY #30 tabs 04/26/24 thiamine mononitrate (vit B1) 100 100 mg PO DAILY #30 tabs 04/26/24 mg tablet PHYSICAL EXAM AT DISCHARGE General Appearance: positive No acute distress and Alert; negative Anxious Eyes Bilateral: positive Normal inspection, PERRL and EOMI ENT: positive ENT inspection nml, Pharynx nml and No signs of dehydration Neck: positive Nml inspection, Thyroid nml and No JVD Respiratory: positive Chest non-tender, No respiratory distress and Breath sounds nml Cardiovascular: positive Regular rate & rhythm, No murmur and No gallop; negative Systolic murmur or Diastolic murmur Peripheral Pulses: positive 2+ Abdomen: positive Non-tender, No organomegaly, Nml bowel sounds and No distention; negative Tenderness or Guarding Skin: positive Color nml, No rash, Warm and Dry Extremities: positive Non-tender, Full ROM, Nml appearance and No pedal edema Neurologic/Psychiatric: positive Oriented x3 and Depressed mood/affect; negative Mood/affect nml (depressed mood, flat affect) LABS 04/26/24 04:22 04/26/24 04:22 SEPSIS Current Stage of Sepsis: Ruled out QUALITY (Female Hip Fx Only) Was patient sent home on osteoporosis medication?: No FOLLOW UP Follow Up: Follow up with primary care physician. TIME SPENT Time Spent in Discharge (Minutes): 35 Discharge Plan Discharge Patient Disposition: 01 Home, Self Care Condition: Stable Prescriptions: New atenolol 25 mg Tablet 50 mg PO DAILY Qty: 30 0RF lisinopril 5 mg Tablet 10 mg PO DAILY Qty: 60 0RF thiamine mononitrate (vit B1) 100 mg Tablet 100 mg PO DAILY Qty: 30 0RF naltrexone 50 mg tablet 50 mg PO DAILY Qty: 30 2RF Diet: Regular Interventions: Discharge Last Done: 04/26/24 11:07 Discharge Checklist - Nursing Last Done: 04/26/24 11:07 Health Concerns: You came in because after being sober for few weeks, you relapsed, and was drinking a heavy amount. You were worried about your withdrawals. We helped you through withdrawals with medications. You remain committed to maintaining your sobriety. We are working on filling out [facility] paperwork for you. We will also be starting on a medication called naltrexone which you will take once daily, and it should help you with your cravings for alcohol. We do recommend you seek help for the psychological component of this. AA meetings, counseling, other support are helpful. Our social work provided you with some list of resources. Return to the ER if needed. You can also independently call and see if there are beds available at some of the detox centers such as [facility] and [place]. We are glad you are feeling better, and you have a plan in action to maintain your sobriety. Thank you for allowing us to take care of you. Print Language: Icelandic Patient Instructions: ED Withdrawal Alcohol Stand Alone Forms: PCP List"
[2024-04-26 08:45] VITALS: O2SAT 94
== END 2024-04-26 11:00 | disposition home or self-care (01) ==
LOC: ED 09:29 → MS2 09:29 → ICU 23:52
PROVIDERS: ADMIT Physician Assistant Medical; ATTEND Emergency Medicine
DX: T44.7X6A Underdosing of beta-adrenoreceptor antagonists, initial encounter; Z90.49 Acquired absence of other specified parts of digestive tract; Z91.148 Patient's other noncompliance with medication regimen for other reason; I10 Essential (primary) hypertension; Y90.4 Blood alcohol level of 80-99 mg/100 ml; Z79.899 Other long term (current) drug therapy; Z63.5 Disruption of family by separation and divorce; F10.139 Alcohol abuse with withdrawal, unspecified; T46.4X6A Underdosing of angiotensin-converting-enzyme inhibitors, initial encounter